=== PATIENT | female | born 1950 | race Asian ===

== ENCOUNTER → 2016-10-25 | Outpatient (CLI) | payer OTHER ==
[~2016-10-25] MED LIST: ACET-1600 PO; ALPR0.25 PO; ALPR1TAB2 PO; AMOX1TAB64 PO; AREDS PO; ASCO500T8 PO; BENA10TA2 PO; BISA10SU65 PR; CHOL100011 PO; CHOL500050 PO; CRANBERRY PO; FEXO180T15 PO; FEXO1TAB25 PO; FOLIC ACID PO; GARL10002 PO; GLUC500T11 PO; HYDR25TA6 PO; LACT1CAP37 PO; MAGN250T9 PO; MAGN300C PO; MULT-516 PO; OMEP-110 PO; OXYC-302 PO; POTA10TA11 PO; POTA20PA25 PO; VITAMIN B12 PO; VITAMIN B6 PO
== END | disposition home or self-care (01) ==
LOC: RAD 14:11
PROVIDERS: ATTEND Internal Medicine Hematology & Oncology
DX: I67.82 Cerebral ischemia (principal); R90.82 White matter disease, unspecified; C50.412 Malignant neoplasm of upper-outer quadrant of left female breast
CPT/HCPCS: 70553

== ENCOUNTER 2017-06-21 15:16 | Emergency (ER) | payer MEDICARE, OTHER ==
[~2017-06-21] VITALS: Ht 160 cm; Wt 88.5 kg
[2017-06-21] MEDS ORDERED: LOSA1TAB19 PO (15:48)
[2017-06-21] MEDS ORDERED: ASPIRIN 325 MG TABLET PO ONE (16:30)
[2017-06-21] MEDS ORDERED: KETOROLAC 30 MG/1 ML IVPush ONE (16:30)
[2017-06-21] MEDS ORDERED: ASPIRIN 325 MG TABLET ONE (16:30)
[2017-06-21] MEDS ORDERED: KETOROLAC 30 MG/1 ML ONE (16:30)
[2017-06-21] MEDS ORDERED: SODIUM CHLORIDE FLUSH 10ML SYR IVF ONE (16:30)
[2017-06-21] MEDS ORDERED: DIAZEPAM 5 MG/ML, 2ML IV ONE (16:30)
[2017-06-21 17:08] LABS: BASOPHILS # (AUTO) 0.02 x10^3/uL (0-0.1); BASOPHILS % (AUTO) 0 % (0-1); EOSINOPHILS % (AUTO) 1 % (1-7); LYMPHOCYTES # (AUTO) 2.65 x10^3/uL (1-3.4); LYMPHOCYTES % (AUTO) 36 % (22-44); MD NO; MEAN CORPUSCULAR HEMOGLOBIN 31.8 pg (27.0-34.8); MEAN CORPUSCULAR HGB CONC 33.4 g/dL (32.4-35.8); MEAN CORPUSCULAR VOLUME 95.1 fL (80-100); MEAN PLATELET VOLUME 8.2 fL (7.4-10.4); MONOCYTES # (AUTO) 0.65 x10^3/uL (0.2-0.8); MONOCYTES % (AUTO) 9 % (2-9); NEUTROPHILS # (AUTO) 4.05 x10^3/uL (1.8-6.8); NEUTROPHILS % (AUTO) 54 % (42-75); PLATELET COUNT 181 x10^3/uL (130-400); RED BLOOD COUNT 4.53 x10^6/uL (3.82-5.3); RED CELL DISTRIBUTION WIDTH 13.5 % (9.6-15.2)
[2017-06-21 17:12] LABS: ALANINE AMINOTRANSFERASE 40 U/L (12-78); ALBUMIN 3.4 g/dL (3.4-5.0); ANION GAP 3 mmol/L (5-15); CALCIUM 8.2 mg/dL (8.5-10.1); CHLORIDE 109 mmol/L (98-107); CREATININE 0.85 mg/dL (0.55-1.02)
[2017-06-21 17:16] LABS: ALKALINE PHOSPHATASE 66 U/L (45-117); BILIRUBIN,TOTAL 0.4 mg/dL (0.2-1.0); TOTAL PROTEIN 7.4 g/dL (6.4-8.2); TROPONIN I < 0.015 ng/mL (0.000-0.045)
[2017-06-21] MEDS ORDERED: GADOBUTROL 10 MMOL/10 ML PFS ONE (17:16)
[2017-06-21 18:08] VITALS: BP 140/78
== END 2017-06-21 20:02 | disposition home or self-care (01) ==
LOC: ED 19:33
DX: R07.2 Precordial pain (principal); M54.12 Radiculopathy, cervical region; I10 Essential (primary) hypertension
CPT/HCPCS: 36415; 71045; 72156; 80053; 83605; 84484; 85025; 93005; 96374; 96375; 99285; A9585; J1885; J3360

== ENCOUNTER 2017-08-27 05:57 | Inpatient (IN) | payer MEDICARE ==
[~2017-08-27] VITALS: Ht 160 cm; Wt 99.0 kg
[~2017-08-27 05:57] MED LIST changes: +DIAZ5TAB4 PO; +DICL50TA2 PO; +KETO10TA PO; +LOSA1TAB19 PO; +MONT10TA6 PO; +OXYC1TAB8 PO; +POTA10CA PO
[2017-08-27] MEDS ORDERED: LACTATED RINGERS 1,000 ML IV SCH (06:29)
[2017-08-27 06:31] VITALS: BP 168/84
[2017-08-27] MEDS ORDERED: FENTANYL PF 250 MCG/5ML ONE (06:37)
[2017-08-27] MEDS ORDERED: MIDAZOLAM 1 MG/ML, 2ML ONE (06:37)
[2017-08-27] MEDS ORDERED: EPHEDRINE 50 MG/ML, 1ML ONE (06:59)
[2017-08-27] MEDS ORDERED: LIDOCAINE-MPF 2% ,5ML ONE (06:59)
[2017-08-27] MEDS ORDERED: PHENYLEPHRINE 10 MG/ML ONE (06:59)
[2017-08-27] MEDS ORDERED: PROMETHAZINE 25 MG/ML, 1ML IV PRN (07:00)
[2017-08-27] MEDS ORDERED: ONDANSETRON ODT 8 MG PO PRN (07:00)
[2017-08-27] MEDS ORDERED: OxyconTIN ER 10 MG TAB.ER PO ONE (07:00)
[2017-08-27] MEDS ORDERED: ACETAMINOPHEN 500 MG TABLET PO ONE (07:00)
[2017-08-27] MEDS ORDERED: MORPHINE SULFATE 4 MG/ML, 1ML IVPush PRN (07:00)
[2017-08-27] MEDS ORDERED: GABAPENTIN 300 MG CAPSULE PO ONE (07:00)
[2017-08-27] MEDS ORDERED: FAMOTIDINE 20 MG TABLET PO ONE (07:00)
[2017-08-27] MEDS ORDERED: hydrALAzine 20 MG/ML, 1ML IV PRN (07:00)
[2017-08-27] MEDS ORDERED: LABETALOL 5MG/ML, 20ML IV PRN (07:00)
[2017-08-27] MEDS ORDERED: OXYcodone 5 MG/5 ML ORAL.SOL UDC PO PRN (07:00)
[2017-08-27] MEDS ORDERED: BUPIVACAINE/PF-EPI 0.5% 1:200K INFIL ONE (07:36)
[2017-08-27] MEDS ORDERED: BACITRACIN 50,000 UNIT IRRIG ONE (07:37)
[2017-08-27] MEDS ORDERED: THROMBIN 5,000 UNIT VIAL TP ONE (07:37)
[2017-08-27] MEDS ORDERED: GLYCOPYRROLATE 0.2MG/1ML, 5ML ONE (07:43)
[2017-08-27] MEDS ORDERED: DEXAMETHASONE 4 MG/ML, 1ML ONE (07:43)
[2017-08-27] MEDS ORDERED: CEFAZOLIN 1,000 MG ONE (07:43)
[2017-08-27] MEDS ORDERED: ROCURONIUM 10MG/ML,5ML ONE (07:43)
[2017-08-27] MEDS ORDERED: ONDANSETRON 2MG/ML, 2ML ONE (07:43)
[2017-08-27] MEDS ORDERED: NEOSTIGMINE 1 MG/ML, 10ML ONE (07:43)
[2017-08-27] MEDS ORDERED: PROPOFOL 10 MG/ML, 20ML ONE (07:43)
[2017-08-27] MEDS ORDERED: SUCCINYLCHOLINE 20 MG/ML, 10ML ONE (07:43)
[2017-08-27] MEDS ORDERED: LABETALOL 5MG/ML, 20ML IVPush PRN (09:30)
[2017-08-27] MEDS ORDERED: MAGNESIUM HYDROXIDE 8%, 30ML UDC PO PRN (09:30)
[2017-08-27] MEDS ORDERED: BISACODYL 10 MG SUPP PR PRN (09:30)
[2017-08-27] MEDS ORDERED: HYDROcodone/APAP 5/325 TABLET PO PRN (09:30)
[2017-08-27] MEDS ORDERED: PHARMACY MAY ADJ FOR RENAL FX MC PRN (09:30)
[2017-08-27] MEDS ORDERED: ONDANSETRON 2MG/ML, 2ML IVPush PRN (09:30)
[2017-08-27] MEDS ORDERED: PROMETHAZINE 25 MG/ML, 1ML IM PRN (09:30)
[2017-08-27] MEDS ORDERED: DIPHENHYDRAMINE 50 MG CAPSULE PO PRN (09:30)
[2017-08-27] MEDS ORDERED: CYCLOBENZAPRINE 10 MG TABLET PO PRN (09:30)
[2017-08-27] MEDS ORDERED: INSULIN REGULAR 100 UNITS/ML, 3ML VIAL SQ-INSULIN PRN (09:30)
[2017-08-27] MEDS ORDERED: SENNA/DOCUSATE TABLET PO PRN (09:30)
[2017-08-27] MEDS ORDERED: morphine SULFATE 10 MG/ML, 1ML IVPush PRN (09:30)
[2017-08-27] MEDS ORDERED: DIPHENHYDRAMINE 50 MG/ML, 1ML IVPush PRN (09:30)
[2017-08-27] MEDS ORDERED: PROMETHAZINE 25 MG/ML, 1ML ONE (09:31)
[2017-08-27] MEDS ORDERED: MORPHINE SULFATE 4 MG/ML, 1ML ONE (09:31)
[2017-08-27] MEDS ORDERED: OXYcodone 5 MG/5 ML ORAL.SOL UDC ONE (09:45)
[2017-08-27] MEDS ORDERED: FENTANYL PF 100 MCG/2ML ONE (09:46)
[2017-08-27] MEDS: FENTANYL PF 100 MCG/2ML IV PRN ×2 (09:50→10:00)
[2017-08-27] MEDS ORDERED: LABETALOL 5MG/ML, 20ML ONE (10:04)
[2017-08-27] MEDS ORDERED: D5%-0.9% NACL+KCL 20MEQ 1,000 ML IV SCH (12:00)
[2017-08-27 12:29] VITALS: BP 156/78
[2017-08-27] MEDS: DEXAMETHASONE 4 MG/ML, 1ML IVPush SCH ×2 (12:32→19:44)
[2017-08-27] MEDS: SODIUM CHLORIDE 0.9% 1,000 ML IV SCH (16:37)
[2017-08-27] MEDS: CEFAZOLIN PMX 1GM/50ML 50 ML IVPB SCH ×2 (16:37→23:15)
[2017-08-27 19:32] VITALS: BP 146/70
[2017-08-27] MEDS: SODIUM CHLORIDE FLUSH 10ML SYR IVF SCH (19:44)
[2017-08-27] MEDS: OXYcodone/APAP 5/325MG TABLET PO PRN ×2 (21:12→23:21)
[2017-08-28 00:50] VITALS: BP 159/78
[2017-08-28] MEDS: DEXAMETHASONE 4 MG/ML, 1ML IVPush SCH ×2 (01:47→08:48)
[2017-08-28] MEDS ORDERED: LACTATED RINGERS 500 ML IVBOLUS ONE (02:30)
[2017-08-28] MEDS: OXYcodone/APAP 5/325MG TABLET PO PRN ×2 (03:27→12:12)
[2017-08-28] MEDS: SODIUM CHLORIDE 0.9% 1,000 ML IV SCH (06:36)
[2017-08-28 08:00] VITALS: BP 145/73
[2017-08-28] MEDS: SODIUM CHLORIDE FLUSH 10ML SYR IVF SCH (08:49)
[2017-08-28] MEDS ORDERED: ENOXAPARIN 40 MG/0.4 ML SQ SCH (09:00)
[2017-08-28] MEDS ORDERED: TEMPLATE NON-FORMULARY MED. (Losartan/Hydrochlorothiazide** (Losartan-Hctz 50-12.5 Mg Tab PO SCH (09:00)
[2017-08-28] MEDS ORDERED: MONTELUKAST 10 MG TABLET PO SCH (09:00)
[2017-08-28] MEDS ORDERED: METH4TAB2 PO (09:43)
[2017-08-28] MEDS ORDERED: OXYC-302 PO (09:46)
[2017-08-28] MEDS ORDERED: FAMO-79 PO (09:46)
[2017-08-28] MEDS ORDERED: CYCL5TAB PO (09:46)
== END 2017-08-28 13:30 | disposition home or self-care (01) | DRG 472 ==
LOC: ORIP 05:57 → 4NOR 10:21
PROVIDERS: ADMIT Neurological Surgery; ATTEND Neurological Surgery
PROC: 0RB30ZZ Excision of Cervical Vertebral Disc, Open Approach (ICD-10-PCS; 2017-08-27)
PROC: 4A11X4G Monitoring of Peripheral Nervous Electrical Activity, Intraoperative, External Approach (ICD-10-PCS; 2017-08-27)
PROC: 0RG20A0 Fusion of 2 or more Cervical Vertebral Joints with Interbody Fusion Device, Anterior Approach, Anterior Column, Open Approach (ICD-10-PCS; principal; 2017-08-27 07:00)
DX: M48.02 Spinal stenosis, cervical region (principal); M50.021 Cervical disc disorder at C4-C5 level with myelopathy; M25.78 Osteophyte, vertebrae; M50.121 Cervical disc disorder at C4-C5 level with radiculopathy; Z68.36 Body mass index [BMI] 36.0-36.9, adult
CPT/HCPCS: 72040; 82962; C1713; J0690; J1100; J1650; J1815; J2250; J2405; J2550; J2704; J2710; J3010; J3490; C1776; J0330; J2370; J3480; J7030; J7120

== ENCOUNTER 2017-09-16 20:32 | Emergency (ER) | payer MEDICARE ==
[~2017-09-16] VITALS: Ht 160 cm; Wt 86.3 kg
[~2017-09-16 20:32] MED LIST changes: -BENA10TA2 PO; +BENA10TA4 PO; +CYCL5TAB PO; +FAMO-79 PO; +METH4TAB2 PO
[2017-09-16 21:03] LABS: BASOPHILS # (AUTO) 0.01 x10^3/uL (0-0.1); BASOPHILS % (AUTO) 0 % (0-1); EOSINOPHILS # (AUTO) 0.09 x10^3/uL (0-0.4); EOSINOPHILS % (AUTO) 1 % (1-7); LYMPHOCYTES % (AUTO) 29 % (22-44); MD NO; MEAN CORPUSCULAR HEMOGLOBIN 31.5 pg (27.0-34.8); MEAN CORPUSCULAR VOLUME 92.7 fL (80-100); MEAN PLATELET VOLUME 7.3 fL (7.4-10.4); MONOCYTES # (AUTO) 0.69 x10^3/uL (0.2-0.8); MONOCYTES % (AUTO) 9 % (2-9); NEUTROPHILS # (AUTO) 4.97 x10^3/uL (1.8-6.8); NEUTROPHILS % (AUTO) 62 % (42-75); PLATELET COUNT 204 x10^3/uL (130-400); RED BLOOD COUNT 4.32 x10^6/uL (3.82-5.3); RED CELL DISTRIBUTION WIDTH 13.2 % (9.6-15.2)
[2017-09-16 21:15] LABS: ALBUMIN 3.3 g/dL (3.4-5.0); ANION GAP 8 mmol/L (5-15); CALCIUM 8.4 mg/dL (8.5-10.1); CHLORIDE 100 mmol/L (98-107); CREATININE 0.72 mg/dL (0.55-1.02)
[2017-09-16 21:18] LABS: TROPONIN I < 0.015 ng/mL (0.000-0.045)
[2017-09-16] MEDS ORDERED: ALBUTEROL/IPRATROPIUM 2.5MG/0.5MG, 3 ML NPPB ONE (22:00)
[2017-09-16] MEDS ORDERED: ALBUTEROL/IPRATROPIUM 2.5MG/0.5MG, 3 ML ONE (22:10)
[2017-09-16 22:23] VITALS: BP 138/86
[2017-09-16] MEDS ORDERED: DEXAMETHASONE 4 MG/ML, 5ML ONE (23:24)
[2017-09-16] MEDS ORDERED: DEXAMETHASONE 4 MG/ML, 1ML IM ONE (23:30)
== END 2017-09-16 23:34 | disposition home or self-care (01) ==
LOC: ED 23:05
DX: J98.01 Acute bronchospasm (principal); I10 Essential (primary) hypertension; Z87.891 Personal history of nicotine dependence; Z85.3 Personal history of malignant neoplasm of breast
CPT/HCPCS: 36415; 70360; 71045; 80048; 82040; 83880; 84484; 85025; 93005; 94640; 96372; 99285; J1100; J7620

== ENCOUNTER → 2017-12-23 | Outpatient (CLI) | payer MEDICARE | END | disposition home or self-care (01) | LOC: CFH 10:08 | PROVIDERS: ATTEND Otolaryngology | DX: K21.9 Gastro-esophageal reflux disease without esophagitis (principal); R13.14 Dysphagia, pharyngoesophageal phase | CPT/HCPCS: 74220 ==

== ENCOUNTER → 2017-12-24 | Outpatient (CLI) | payer MEDICARE | END | disposition home or self-care (01) | LOC: CFH 15:50 → MERGE 16:00 | PROVIDERS: ATTEND Neurological Surgery | DX: M43.22 Fusion of spine, cervical region (principal); M48.02 Spinal stenosis, cervical region; M47.12 Other spondylosis with myelopathy, cervical region | CPT/HCPCS: 72141 ==

== ENCOUNTER 2018-02-19 10:39 | Outpatient (CLI) | payer MEDICARE ==
[2018-02-20] MEDS ORDERED: AMLO-150 PO (10:16)
[2018-02-20] MEDS ORDERED: LOSA1TAB22 PO (10:16)
== END 2018-02-19 23:59 | disposition home or self-care (01) ==
LOC: PETCFH 10:39
PROVIDERS: ATTEND Internal Medicine Hematology & Oncology
DX: C50.412 Malignant neoplasm of upper-outer quadrant of left female breast (principal)
CPT/HCPCS: 78306; A9503

== ENCOUNTER → 2018-02-20 | Outpatient (CLI) | payer MEDICARE ==
[~2018-02-20] MED LIST changes: +AMLO-150 PO; +LOSA1TAB22 PO
[2018-02-20 11:03] LABS: MICROSCOPIC NOT IND
[2018-02-20 11:03] LABS: BASOPHILS # (AUTO) 0.01 x10^3/uL (0-0.1); BASOPHILS % (AUTO) 0 % (0-1); EOSINOPHILS # (AUTO) 0.13 x10^3/uL (0-0.4); EOSINOPHILS % (AUTO) 2 % (1-7); LYMPHOCYTES # (AUTO) 2.27 x10^3/uL (1-3.4); LYMPHOCYTES % (AUTO) 34 % (22-44); MD NO; MEAN CORPUSCULAR HEMOGLOBIN 32.5 pg (27.0-34.8); MEAN CORPUSCULAR HGB CONC 34.3 g/dL (32.4-35.8); MEAN CORPUSCULAR VOLUME 94.7 fL (80-100); MEAN PLATELET VOLUME 8.1 fL (7.4-10.4); MONOCYTES # (AUTO) 0.67 x10^3/uL (0.2-0.8); MONOCYTES % (AUTO) 10 % (2-9); NEUTROPHILS # (AUTO) 3.55 x10^3/uL (1.8-6.8); NEUTROPHILS % (AUTO) 54 % (42-75); PLATELET COUNT 209 x10^3/uL (130-400); RED BLOOD COUNT 4.29 x10^6/uL (3.82-5.3); RED CELL DISTRIBUTION WIDTH 13.6 % (9.6-15.2)
[2018-02-20 11:04] LABS: CULTURE INDICATED? NO
[2018-02-20 11:11] LABS: ALANINE AMINOTRANSFERASE 37 U/L (12-78); ALBUMIN 3.6 g/dL (3.4-5.0); ANION GAP 7 mmol/L (5-15); CALCIUM 8.7 mg/dL (8.5-10.1); CHLORIDE 104 mmol/L (98-107); CREATININE 0.73 mg/dL (0.55-1.02); INTERNATIONAL NORMALIZED RATIO 0.97 (0.93-1.1); PROTHROMBIN TIME 10.3 Seconds (9.6-11.5)
[2018-02-20 11:13] LABS: ALKALINE PHOSPHATASE 85 U/L (45-117); BILIRUBIN,TOTAL 0.5 mg/dL (0.2-1.0); TOTAL PROTEIN 7.6 g/dL (6.4-8.2)
== END | disposition home or self-care (01) ==
LOC: STAR 09:42
PROVIDERS: ATTEND Neurological Surgery
DX: Z01.818 Encounter for other preprocedural examination (principal); M47.12 Other spondylosis with myelopathy, cervical region
CPT/HCPCS: 36415; 80053; 81003; 85025; 85610; 85730; 93005

== ENCOUNTER → 2018-04-10 | Outpatient (CLI) | payer MEDICARE | END | disposition home or self-care (01) | LOC: CFH 13:08 | PROVIDERS: ATTEND Registered Nurse | DX: M43.22 Fusion of spine, cervical region (principal); M54.12 Radiculopathy, cervical region | CPT/HCPCS: 72040 ==

== ENCOUNTER 2018-07-29 09:27 | Inpatient (IN) | payer MEDICARE ==
[~2018-07-29] VITALS: Ht 160 cm; Wt 69.9 kg
[~2018-07-29 09:27] MED LIST changes: -BENA10TA4 PO; +BENA10TA6 PO
--- NOTE | 2018-07-29 09:57 | NUR ---
Nitin resendez in [facility] - 07/29/18 at 0959 by MATHEW MEDICATED PER ORDERS
--- NOTE | 2018-07-29 10:00 | NUR ---
THIS IS A 68 YEAR OLD FEMALE WHO CAME IN BY AMBULANCE DUE TO TACHY AND C/O OF SOME VERTIGO. PT PLACED ON CASE BRIEFER SINUS, SPO02 AT 96%, AND CYCLE VS. FAMILY AT BS
--- NOTE | 2018-07-29 10:12 | NUR ---
WALKED PT TO BATHROOM GAIT SLOW AND STEADY, NO SOB, PT DENIES VERTIGO, DIZZINESS, OR NAUSEA.
[2018-07-29 10:28] LABS: MEAN CORPUSCULAR HEMOGLOBIN 31.3 pg (27.0-34.8); MEAN CORPUSCULAR HGB CONC 33.6 g/dL (32.4-35.8); MEAN CORPUSCULAR VOLUME 93.1 fL (80-100); MEAN PLATELET VOLUME 7.3 fL (7.4-10.4); PLATELET COUNT 116 x10^3/uL (130-400); RED BLOOD COUNT 3.46 x10^6/uL (3.82-5.3); RED CELL DISTRIBUTION WIDTH 21.2 % (9.6-15.2)
[2018-07-29 10:29] LABS: MD YES
[2018-07-29 10:36] LABS: MICROSCOPIC NOT IND
[2018-07-29 10:37] LABS: INTERNATIONAL NORMALIZED RATIO 1.03 (0.93-1.1); PROTHROMBIN TIME 10.8 Seconds (9.6-11.5)
[2018-07-29 10:38] LABS: CULTURE INDICATED? NO
[2018-07-29 10:40] LABS: ALBUMIN 3.2 g/dL (3.4-5.0); ANION GAP 15 mmol/L (5-15); CALCIUM 9.8 mg/dL (8.5-10.1); CHLORIDE 96 mmol/L (98-107)
[2018-07-29 10:45] LABS: ALANINE AMINOTRANSFERASE 28 U/L (12-78); ALKALINE PHOSPHATASE 79 U/L (45-117); BAND#(MANUAL) 0.44 x10^3/uL; BANDS%(MANUAL) 6 % (0-7); BILIRUBIN,TOTAL 0.6 mg/dL (0.2-1.0); CREATININE 1.11 mg/dL (0.55-1.02); LYMPH#(MANUAL) 3.33 x10^3/uL (1-3.4); LYMPHS% (MANUAL) 45 % (22-44); METAMYELOCYTES# (MANUAL) 0.15 x10^3/uL (0-0); METAMYELOCYTES% (MANUAL) 2 % (0-1); MONOS#(MANUAL) 0.15 x10^3/uL (0.3-2.7); MONOS% (MANUAL) 2 % (2-9); MYELOCYTES# (MANUAL) 0.22 x10^3/uL (0-0); MYELOCYTES% (MANUAL) 3 % (0-0); SEGS% (MANUAL) 23 % (42-75); TOTAL PROTEIN 7.2 g/dL (6.4-8.2); TROPONIN I < 0.015 ng/mL (0.000-0.045)
[2018-07-29 10:46] LABS: NRBC % (MANUAL) 1 % (0-1); OTHER CELLS # (MANUAL) 1.41 x10^3/uL (0-0); OTHER CELLS % (MANUAL) 19 % (0-0)
[2018-07-29 10:47] LABS: <PLATELET ESTIMATE> DECREASED; ANISOCYTOSIS 1+; POLYCHROMASIA 1+
[2018-07-29 10:52] LABS: HYPOGRAN PLTS 1+; SMUDGE CELLS 1+
[2018-07-29] MEDS ORDERED: SODIUM CHLORIDE 0.9% 1,000ML IVBOLUS ONE (12:00)
[2018-07-29] MEDS ORDERED: OMNIPAQUE 350 MG/ML, 100ML BOTTLE ONE (12:12)
--- NOTE | 2018-07-29 12:43 | NUR ---
PT UP TO BATHROOM GAIT SLOW AND STEADY
[2018-07-29] MEDS ORDERED: DICL-249 PO (13:12)
[2018-07-29] MEDS ORDERED: MECL25TA4 PO (13:12)
[2018-07-29] MEDS ORDERED: CYCL-259 PO (13:12)
[2018-07-29] MEDS ORDERED: BENZ150C3 PO (13:12)
--- NOTE | 2018-07-29 13:35 | NUR ---
REPORT GIVEN TO SLICK VINES
[2018-07-29 14:27] VITALS: BP 155/76
[2018-07-29] MEDS ORDERED: NITROGLYCERIN 0.4 MG/SPRAY SL PRN (14:30)
[2018-07-29] MEDS ORDERED: NITROGLYCERIN 0.4 MG BOTTLE (25 TABS) SL PRN (14:30)
[2018-07-29] MEDS ORDERED: LIDODERM 5% PATCH TD PRN (14:30)
[2018-07-29] MEDS ORDERED: hydrALAzine 20 MG/ML, 1ML IVPush PRN (14:30)
[2018-07-29] MEDS ORDERED: morphine SULFATE 10 MG/ML, 1ML IVPush PRN (14:30)
[2018-07-29 15:16] LABS: RED BLOOD COUNT 3.49 x10^6/uL (3.82-5.3)
[2018-07-29] MEDS: SODIUM CHLORIDE 0.9% 1,000 ML IV SCH (15:27)
[2018-07-29] MEDS ORDERED: MECLIZINE 25 MG TABLET PO PRN (15:30)
[2018-07-29] MEDS ORDERED: CYCLOBENZAPRINE 10 MG TABLET PO PRN (15:30)
[2018-07-29 15:31] LABS: ABSOLUTE RETICS # 0.098 x10^6/uL (0.5-2.5); RETICULOCYTE COUNT % 2.8 % (0.5-1.5)
[2018-07-29 19:40] LABS: TROPONIN I < 0.015 ng/mL (0.000-0.045)
[2018-07-29 21:31] VITALS: BP 139/79
[2018-07-30] VITALS (7 sets, daily range): BP systolic 114–139; BP diastolic 69–83
[2018-07-30] MEDS: SODIUM CHLORIDE 0.9% 1,000 ML IV SCH ×2 (02:17→15:41)
[2018-07-30 02:31] LABS: TROPONIN I < 0.015 ng/mL (0.000-0.045)
[2018-07-30] MEDS: ASPIRIN 325 MG TABLET EC PO SCH (05:26)
[2018-07-30 05:29] LABS: ALBUMIN 2.7 g/dL (3.4-5.0); ANION GAP 12 mmol/L (5-15); CALCIUM 8.7 mg/dL (8.5-10.1); CHLORIDE 103 mmol/L (98-107)
[2018-07-30 05:40] LABS: ALANINE AMINOTRANSFERASE 20 U/L (12-78); ALKALINE PHOSPHATASE 60 U/L (45-117); BILIRUBIN,TOTAL 0.8 mg/dL (0.2-1.0); CREATININE 0.82 mg/dL (0.55-1.02); TOTAL PROTEIN 6.1 g/dL (6.4-8.2)
[2018-07-30 05:57] LABS: MD YES; MEAN CORPUSCULAR HEMOGLOBIN 30.7 pg (27.0-34.8); MEAN CORPUSCULAR HGB CONC 33.2 g/dL (32.4-35.8); MEAN CORPUSCULAR VOLUME 92.4 fL (80-100); RED BLOOD COUNT 2.81 x10^6/uL (3.82-5.3)
[2018-07-30 05:58] LABS: MEAN PLATELET VOLUME 6.9 fL (7.4-10.4); PLATELET COUNT 91 x10^3/uL (130-400)
[2018-07-30 06:07] LABS: <PLATELET ESTIMATE> DECREASED; ANISOCYTOSIS 1+; BAND#(MANUAL) 0.19 x10^3/uL; BANDS%(MANUAL) 4 % (0-7); BLASTS # (MANUAL) 0.99 x10^3/uL (0-0); EOS#(MANUAL) 0.09 x10^3/uL (0.0-0.4); EOS% (MANUAL) 2 % (1-7); LYMPH#(MANUAL) 1.83 x10^3/uL (1-3.4); LYMPHS% (MANUAL) 39 % (22-44); METAMYELOCYTES# (MANUAL) 0.09 x10^3/uL (0-0); METAMYELOCYTES% (MANUAL) 2 % (0-1); MONOS#(MANUAL) 0.09 x10^3/uL (0.3-2.7); MONOS% (MANUAL) 2 % (2-9); MYELOCYTES# (MANUAL) 0.05 x10^3/uL (0-0); MYELOCYTES% (MANUAL) 1 % (0-0); POLYCHROMASIA 1+; SEG#(MANUAL) 1.36 x10^3/uL (1.8-6.8); SEGS% (MANUAL) 29 % (42-75)
[2018-07-30 06:08] LABS: HYPOGRAN PLTS 1+
[2018-07-30 06:13] LABS: BLASTS % (MANUAL) 21 % (0-0)
[2018-07-30] MEDS ORDERED: REGADENOSON 0.4 MG/5 ML SYRINGE ONE (09:19)
[2018-07-30] MEDS ORDERED: POTASSIUM CHLORIDE 20 MEQ TAB.ER.PRT PO ONE (10:00)
[2018-07-30] MEDS ORDERED: FENTANYL PF 100 MCG/2ML ONE (11:06)
[2018-07-30] MEDS ORDERED: MIDAZOLAM 1 MG/ML, 5ML ONE (11:06)
[2018-07-30] MEDS ORDERED: FLUMAZENIL 0.1 MG/1 ML, 5ML ONE (11:06)
[2018-07-30] MEDS ORDERED: NALOXONE 1 MG/ML, 2ML ONE (11:07)
[2018-07-30] MEDS: AMLODIPINE 5 MG TABLET PO SCH (12:19)
[2018-07-30 13:21] LABS: MD YES; MEAN CORPUSCULAR HEMOGLOBIN 32.1 pg (27.0-34.8); MEAN CORPUSCULAR HGB CONC 34.7 g/dL (32.4-35.8); MEAN CORPUSCULAR VOLUME 92.5 fL (80-100); RED BLOOD COUNT 2.98 x10^6/uL (3.82-5.3); RED CELL DISTRIBUTION WIDTH 21.8 % (9.6-15.2)
[2018-07-30 13:31] LABS: BAND#(MANUAL) 0.24 x10^3/uL; BANDS%(MANUAL) 6 % (0-7); SEGS% (MANUAL) 40 % (42-75)
[2018-07-30 13:32] LABS: BASOS#(MANUAL) 0.04 x10^3/uL (0-0.1); BASOS% (MANUAL) 1 % (0-1); BLASTS # (MANUAL) 0.32 x10^3/uL (0-0); EOS#(MANUAL) 0.08 x10^3/uL (0.0-0.4); EOS% (MANUAL) 2 % (1-7); LYMPH#(MANUAL) 1.56 x10^3/uL (1-3.4); LYMPHS% (MANUAL) 39 % (22-44); METAMYELOCYTES# (MANUAL) 0.04 x10^3/uL (0-0); METAMYELOCYTES% (MANUAL) 1 % (0-1); MONOS#(MANUAL) 0.08 x10^3/uL (0.3-2.7); MONOS% (MANUAL) 2 % (2-9); MYELOCYTES# (MANUAL) 0.04 x10^3/uL (0-0); MYELOCYTES% (MANUAL) 1 % (0-0); NRBC % (MANUAL) 5 % (0-1)
[2018-07-30 13:35] LABS: <PLATELET ESTIMATE> DECREASED
[2018-07-30 13:36] LABS: ANISOCYTOSIS 1+
[2018-07-30 13:38] LABS: BLASTS % (MANUAL) 8 % (0-0)
[2018-07-30 13:39] LABS: MEAN PLATELET VOLUME 7.2 fL (7.4-10.4); PLATELET COUNT 91 x10^3/uL (130-400)
[2018-07-30 13:40] LABS: <PLT MORPHOLOGY> NORMAL PLT MORPH
[2018-07-30] MEDS: ACETAMINOPHEN 325 MG TABLET PO PRN (18:46)
[2018-07-31 00:06] VITALS: BP 112/58
[2018-07-31] MEDS: SODIUM CHLORIDE 0.9% 1,000 ML IV SCH ×2 (02:05→16:04)
[2018-07-31 05:00] LABS: ALANINE AMINOTRANSFERASE 17 U/L (12-78); ALBUMIN 2.6 g/dL (3.4-5.0); ANION GAP 12 mmol/L (5-15); CALCIUM 8.2 mg/dL (8.5-10.1); CHLORIDE 106 mmol/L (98-107); CREATININE 0.81 mg/dL (0.55-1.02)
[2018-07-31 05:02] LABS: ALKALINE PHOSPHATASE 58 U/L (45-117); BILIRUBIN,TOTAL 0.6 mg/dL (0.2-1.0); TOTAL PROTEIN 5.9 g/dL (6.4-8.2)
[2018-07-31 05:47] LABS: MEAN CORPUSCULAR HEMOGLOBIN 30.4 pg (27.0-34.8); MEAN CORPUSCULAR VOLUME 92.4 fL (80-100); MEAN PLATELET VOLUME 6.6 fL (7.4-10.4); PLATELET COUNT 81 x10^3/uL (130-400); RED BLOOD COUNT 2.72 x10^6/uL (3.82-5.3); RED CELL DISTRIBUTION WIDTH 22.2 % (9.6-15.2)
[2018-07-31 05:48] LABS: MD YES
[2018-07-31 05:52] LABS: <PLATELET ESTIMATE> DECREASED; ANISOCYTOSIS 1+; BAND#(MANUAL) 0.08 x10^3/uL; BANDS%(MANUAL) 3 % (0-7); BLASTS # (MANUAL) 0.28 x10^3/uL (0-0); EOS#(MANUAL) 0.11 x10^3/uL (0.0-0.4); EOS% (MANUAL) 4 % (1-7); LYMPHS% (MANUAL) 43 % (22-44); METAMYELOCYTES# (MANUAL) 0.03 x10^3/uL (0-0); METAMYELOCYTES% (MANUAL) 1 % (0-1); MONOS#(MANUAL) 0.06 x10^3/uL (0.3-2.7); MONOS% (MANUAL) 2 % (2-9); MYELOCYTES# (MANUAL) 0.03 x10^3/uL (0-0); MYELOCYTES% (MANUAL) 1 % (0-0); NRBC % (MANUAL) 4 % (0-1); SEG#(MANUAL) 1.01 x10^3/uL (1.8-6.8); SEGS% (MANUAL) 36 % (42-75)
[2018-07-31 05:53] LABS: HYPOGRAN PLTS 1+
[2018-07-31 05:54] LABS: SMUDGE CELLS 1+
[2018-07-31 05:55] LABS: BLASTS % (MANUAL) 10 % (0-0)
[2018-07-31] MEDS: ASPIRIN 325 MG TABLET EC PO SCH (06:05)
[2018-07-31 07:14] VITALS: BP 113/69
[2018-07-31 09:05] LABS: MEAN CORPUSCULAR HEMOGLOBIN 30.6 pg (27.0-34.8); MEAN CORPUSCULAR HGB CONC 33.1 g/dL (32.4-35.8); MEAN CORPUSCULAR VOLUME 92.4 fL (80-100); MEAN PLATELET VOLUME 6.9 fL (7.4-10.4); PLATELET COUNT 76 x10^3/uL (130-400); RED BLOOD COUNT 2.72 x10^6/uL (3.82-5.3); RED CELL DISTRIBUTION WIDTH 22.6 % (9.6-15.2)
[2018-07-31 09:23] LABS: MD YES
[2018-07-31 09:29] LABS: <PLATELET ESTIMATE> DECREASED; ANISOCYTOSIS 1+; BAND#(MANUAL) 0.18 x10^3/uL; BANDS%(MANUAL) 6 % (0-7); BLASTS # (MANUAL) 0.36 x10^3/uL (0-0); EOS#(MANUAL) 0.06 x10^3/uL (0.0-0.4); EOS% (MANUAL) 2 % (1-7); LYMPH#(MANUAL) 1.47 x10^3/uL (1-3.4); LYMPHS% (MANUAL) 49 % (22-44); METAMYELOCYTES# (MANUAL) 0.03 x10^3/uL (0-0); METAMYELOCYTES% (MANUAL) 1 % (0-1); MONOS#(MANUAL) 0.03 x10^3/uL (0.3-2.7); MONOS% (MANUAL) 1 % (2-9); MYELOCYTES# (MANUAL) 0.06 x10^3/uL (0-0); MYELOCYTES% (MANUAL) 2 % (0-0); SEG#(MANUAL) 0.81 x10^3/uL (1.8-6.8); SEGS% (MANUAL) 27 % (42-75)
[2018-07-31 09:30] LABS: POLYCHROMASIA 1+
[2018-07-31 09:31] LABS: BLASTS % (MANUAL) 12 % (0-0)
[2018-07-31 09:32] LABS: HYPOGRAN PLTS 1+
[2018-07-31] MEDS ORDERED: MAGNESIUM SULFATE 3 GM in SODIUM CHLORIDE 0.9% 100 ML IV ONE (10:00)
[2018-07-31] MEDS ORDERED: POTASSIUM CHLORIDE 20 MEQ TAB.ER.PRT PO ONE ×2 (10:00→13:00)
[2018-07-31] MEDS: AMLODIPINE 5 MG TABLET PO SCH (10:15)
[2018-07-31 13:45] VITALS: BP 107/65
--- NOTE | 2018-07-31 16:16 | NUR ---
REC THIN/REGULAR; swallow precaution sheet posted at bedside Addendum: 07/31/18 at 1632 by Frances AMANDA Amended: Links added.
[2018-07-31 19:12] VITALS: BP 112/65
[2018-07-31] MEDS: ACETAMINOPHEN 325 MG TABLET PO PRN (20:53)
[2018-07-31] MEDS: ALLOPURINOL 300 MG TABLET PO SCH (20:53)
[2018-08-01 01:05] VITALS: BP 104/62
[2018-08-01] MEDS: SODIUM CHLORIDE 0.9% 1,000 ML IV SCH ×2 (02:36→21:31)
[2018-08-01] MEDS: ASPIRIN 325 MG TABLET EC PO SCH (05:39)
[2018-08-01] MEDS: PANTOPROZOLE 40MG TABLET PO SCH (05:39)
[2018-08-01 07:41] VITALS: BP 125/68
[2018-08-01 09:13] LABS: ALANINE AMINOTRANSFERASE 22 U/L (12-78); ALBUMIN 2.5 g/dL (3.4-5.0); ANION GAP 10 mmol/L (5-15); CALCIUM 7.9 mg/dL (8.5-10.1); CHLORIDE 107 mmol/L (98-107); CREATININE 0.71 mg/dL (0.55-1.02)
[2018-08-01 09:16] LABS: ALKALINE PHOSPHATASE 65 U/L (45-117); BILIRUBIN,TOTAL 0.8 mg/dL (0.2-1.0); TOTAL PROTEIN 5.9 g/dL (6.4-8.2)
[2018-08-01] MEDS: AMLODIPINE 5 MG TABLET PO SCH (09:38)
[2018-08-01] MEDS: ALLOPURINOL 300 MG TABLET PO SCH ×2 (09:38→21:28)
[2018-08-01 10:26] LABS: MEAN CORPUSCULAR HEMOGLOBIN 31.6 pg (27.0-34.8); MEAN CORPUSCULAR HGB CONC 33.7 g/dL (32.4-35.8); MEAN CORPUSCULAR VOLUME 93.6 fL (80-100); MEAN PLATELET VOLUME 6.8 fL (7.4-10.4); PLATELET COUNT 72 x10^3/uL (130-400); RED BLOOD COUNT 2.51 x10^6/uL (3.82-5.3)
[2018-08-01 10:27] LABS: MD YES
[2018-08-01 10:30] LABS: BANDS%(MANUAL) 3 % (0-7); BLASTS # (MANUAL) 0.34 x10^3/uL (0-0); EOS#(MANUAL) 0.03 x10^3/uL (0.0-0.4); EOS% (MANUAL) 1 % (1-7); LYMPHS% (MANUAL) 44 % (22-44); METAMYELOCYTES# (MANUAL) 0.07 x10^3/uL (0-0); METAMYELOCYTES% (MANUAL) 2 % (0-1); NRBC % (MANUAL) 5 % (0-1); SEG#(MANUAL) 1.36 x10^3/uL (1.8-6.8); SEGS% (MANUAL) 40 % (42-75)
[2018-08-01 10:31] LABS: ANISOCYTOSIS 1+; BLASTS % (MANUAL) 10 % (0-0); POLYCHROMASIA 1+
[2018-08-01 10:32] LABS: <PLATELET ESTIMATE> DECREASED; HYPOGRAN PLTS 1+; SMUDGE CELLS 1+
[2018-08-01] MEDS ORDERED: MAGNESIUM SULFATE PMX 2GM/50ML 50 ML IV ONE (11:30)
[2018-08-01 12:34] VITALS: BP 108/69
[2018-08-01 19:47] VITALS: BP 128/75
[2018-08-01] MEDS: ACETAMINOPHEN 325 MG TABLET PO PRN (21:28)
[2018-08-01] MEDS: ALPRazolam 1MG TAB PO PRN (22:36)
[2018-08-02 01:53] VITALS: BP 129/65
[2018-08-02 05:42] LABS: CHLORIDE 108 mmol/L (98-107)
[2018-08-02 05:50] LABS: ALANINE AMINOTRANSFERASE 24 U/L (12-78); ALBUMIN 2.4 g/dL (3.4-5.0); ALKALINE PHOSPHATASE 97 U/L (45-117); ANION GAP 10 mmol/L (5-15); BILIRUBIN,TOTAL 0.6 mg/dL (0.2-1.0); CALCIUM 7.9 mg/dL (8.5-10.1); CREATININE 0.63 mg/dL (0.55-1.02); TOTAL PROTEIN 5.7 g/dL (6.4-8.2)
[2018-08-02 05:57] LABS: MEAN CORPUSCULAR HEMOGLOBIN 31.1 pg (27.0-34.8); MEAN CORPUSCULAR HGB CONC 33.7 g/dL (32.4-35.8); MEAN CORPUSCULAR VOLUME 92.4 fL (80-100); PLATELET COUNT 72 x10^3/uL (130-400); RED BLOOD COUNT 2.52 x10^6/uL (3.82-5.3); RED CELL DISTRIBUTION WIDTH 22.8 % (9.6-15.2)
[2018-08-02 05:58] LABS: MD YES
[2018-08-02 06:01] LABS: BANDS%(MANUAL) 6 % (0-7); BLASTS # (MANUAL) 0.37 x10^3/uL (0-0); METAMYELOCYTES# (MANUAL) 0.07 x10^3/uL (0-0); METAMYELOCYTES% (MANUAL) 2 % (0-1); MONOS#(MANUAL) 0.03 x10^3/uL (0.3-2.7); MONOS% (MANUAL) 1 % (2-9); NRBC % (MANUAL) 1 % (0-1)
[2018-08-02 06:02] LABS: EOS% (MANUAL) 3 % (1-7); LYMPH#(MANUAL) 1.56 x10^3/uL (1-3.4); LYMPHS% (MANUAL) 46 % (22-44); SEG#(MANUAL) 1.05 x10^3/uL (1.8-6.8); SEGS% (MANUAL) 31 % (42-75)
[2018-08-02 06:03] LABS: BLASTS % (MANUAL) 11 % (0-0)
[2018-08-02 06:04] LABS: ANISOCYTOSIS 1+; POLYCHROMASIA 1+
[2018-08-02 06:05] LABS: <PLATELET ESTIMATE> DECREASED; <PLT MORPHOLOGY> NORMAL PLT MORPH; SMUDGE CELLS 1+
[2018-08-02] MEDS: PANTOPROZOLE 40MG TABLET PO SCH (06:05)
[2018-08-02] MEDS: ASPIRIN 325 MG TABLET EC PO SCH (06:05)
[2018-08-02] MEDS: AMLODIPINE 5 MG TABLET PO SCH (07:34)
[2018-08-02] MEDS: ALLOPURINOL 300 MG TABLET PO SCH ×2 (07:34→21:13)
[2018-08-02] MEDS: SODIUM CHLORIDE 0.9% 1,000 ML IV SCH ×2 (07:35→17:58)
[2018-08-02 08:33] VITALS: BP 124/77
[2018-08-02 15:47] VITALS: BP 123/75
[2018-08-02 20:07] VITALS: BP 126/74
[2018-08-02] MEDS: ACETAMINOPHEN 325 MG TABLET PO PRN (21:13)
[2018-08-02] MEDS: ALPRazolam 1MG TAB PO PRN (21:13)
[2018-08-03 00:45] VITALS: BP 106/65
[2018-08-03] MEDS: SODIUM CHLORIDE 0.9% 1,000 ML IV SCH ×2 (04:00→17:10)
[2018-08-03 06:17] LABS: CHLORIDE 109 mmol/L (98-107)
[2018-08-03 06:26] LABS: ALANINE AMINOTRANSFERASE 26 U/L (12-78); ALBUMIN 2.5 g/dL (3.4-5.0); ALKALINE PHOSPHATASE 105 U/L (45-117); ANION GAP 13 mmol/L (5-15); BILIRUBIN,TOTAL 0.4 mg/dL (0.2-1.0); CREATININE 0.66 mg/dL (0.55-1.02); TOTAL PROTEIN 6.1 g/dL (6.4-8.2)
[2018-08-03 06:31] LABS: MD YES
[2018-08-03 06:32] LABS: MEAN CORPUSCULAR HEMOGLOBIN 32.5 pg (27.0-34.8); MEAN CORPUSCULAR HGB CONC 34.1 g/dL (32.4-35.8); MEAN CORPUSCULAR VOLUME 95.2 fL (80-100); MEAN PLATELET VOLUME 6.9 fL (7.4-10.4); PLATELET COUNT 79 x10^3/uL (130-400); RED BLOOD COUNT 2.53 x10^6/uL (3.82-5.3); RED CELL DISTRIBUTION WIDTH 22.6 % (9.6-15.2)
[2018-08-03 06:41] LABS: BANDS%(MANUAL) 2 % (0-7); EOS% (MANUAL) 4 % (1-7); LYMPHS% (MANUAL) 45 % (22-44); MYELOCYTES% (MANUAL) 2 % (0-0); NRBC % (MANUAL) 2 % (0-1); SEGS% (MANUAL) 23 % (42-75)
[2018-08-03 06:42] LABS: <PLATELET ESTIMATE> DECREASED; ANISOCYTOSIS 1+; POLYCHROMASIA 1+; SMUDGE CELLS 1+
[2018-08-03] MEDS: PANTOPROZOLE 40MG TABLET PO SCH (06:42)
[2018-08-03] MEDS: ASPIRIN 325 MG TABLET EC PO SCH (06:42)
[2018-08-03 06:44] LABS: BAND#(MANUAL) 0.08 x10^3/uL; BLASTS # (MANUAL) 0.94 x10^3/uL (0-0); BLASTS % (MANUAL) 24 % (0-0); EOS#(MANUAL) 0.16 x10^3/uL (0.0-0.4); LYMPH#(MANUAL) 1.76 x10^3/uL (1-3.4); MYELOCYTES# (MANUAL) 0.08 x10^3/uL (0-0)
[2018-08-03 06:46] LABS: HYPOGRAN PLTS 1+
[2018-08-03] MEDS ORDERED: POTASSIUM CHLORIDE 20 MEQ TAB.ER.PRT PO ONE ×2 (07:00→23:30)
[2018-08-03 07:02] VITALS: BP 142/78
[2018-08-03] MEDS: AMLODIPINE 5 MG TABLET PO SCH (10:51)
[2018-08-03] MEDS: ALLOPURINOL 300 MG TABLET PO SCH ×2 (10:51→21:46)
[2018-08-03 13:23] VITALS: BP 146/77
[2018-08-03 20:27] VITALS: BP 119/67
[2018-08-03] MEDS: ACETAMINOPHEN 325 MG TABLET PO PRN (21:47)
[2018-08-03] MEDS: CEFEPIME 2 GM in DEXTROSE 5% 100 ML IV SCH (21:52)
[2018-08-03 22:06] LABS: MICROSCOPIC NOT IND
[2018-08-03 22:08] LABS: CULTURE INDICATED? NO
[2018-08-03] MEDS: ALPRazolam 1MG TAB PO PRN (23:26)
[2018-08-04 01:25] VITALS: BP 114/73
[2018-08-04] MEDS: SODIUM CHLORIDE 0.9% 1,000 ML IV SCH ×2 (01:51→12:59)
[2018-08-04] MEDS: ASPIRIN 325 MG TABLET EC PO SCH (05:45)
[2018-08-04] MEDS: CEFEPIME 2 GM in DEXTROSE 5% 100 ML IV SCH ×3 (05:45→20:26)
[2018-08-04] MEDS: PANTOPROZOLE 40MG TABLET PO SCH (05:45)
[2018-08-04 05:47] LABS: CHLORIDE 109 mmol/L (98-107)
[2018-08-04 05:55] LABS: ALANINE AMINOTRANSFERASE 28 U/L (12-78); ALKALINE PHOSPHATASE 103 U/L (45-117); ANION GAP 13 mmol/L (5-15); BILIRUBIN,TOTAL 0.6 mg/dL (0.2-1.0); CALCIUM 8.2 mg/dL (8.5-10.1); CREATININE 0.65 mg/dL (0.55-1.02)
[2018-08-04 05:56] LABS: ALBUMIN 2.4 g/dL (3.4-5.0); TOTAL PROTEIN 5.9 g/dL (6.4-8.2)
[2018-08-04 06:37] LABS: MD YES; MEAN CORPUSCULAR HEMOGLOBIN 31.5 pg (27.0-34.8); MEAN CORPUSCULAR HGB CONC 33.7 g/dL (32.4-35.8); MEAN CORPUSCULAR VOLUME 93.6 fL (80-100); MEAN PLATELET VOLUME 7.2 fL (7.4-10.4); PLATELET COUNT 75 x10^3/uL (130-400); RED CELL DISTRIBUTION WIDTH 22.8 % (9.6-15.2)
[2018-08-04 07:03] LABS: BAND#(MANUAL) 0.29 x10^3/uL; BANDS%(MANUAL) 8 % (0-7); BLASTS # (MANUAL) 0.58 x10^3/uL (0-0); EOS#(MANUAL) 0.04 x10^3/uL (0.0-0.4); EOS% (MANUAL) 1 % (1-7); LYMPHS% (MANUAL) 39 % (22-44); METAMYELOCYTES# (MANUAL) 0.11 x10^3/uL (0-0); METAMYELOCYTES% (MANUAL) 3 % (0-1); MONOS#(MANUAL) 0.11 x10^3/uL (0.3-2.7); MONOS% (MANUAL) 3 % (2-9); MYELOCYTES# (MANUAL) 0.07 x10^3/uL (0-0); MYELOCYTES% (MANUAL) 2 % (0-0); NRBC % (MANUAL) 3 % (0-1); SEG#(MANUAL) 1.01 x10^3/uL (1.8-6.8); SEGS% (MANUAL) 28 % (42-75)
[2018-08-04 07:04] LABS: <PLATELET ESTIMATE> DECREASED; ANISOCYTOSIS 1+; BLASTS % (MANUAL) 16 % (0-0); POLYCHROMASIA 1+; SMUDGE CELLS 1+
[2018-08-04 07:08] VITALS: BP 127/78
[2018-08-04 07:19] LABS: <PLT MORPHOLOGY> NORMAL PLT MORPH
[2018-08-04] MEDS: ALLOPURINOL 300 MG TABLET PO SCH ×2 (09:11→20:26)
[2018-08-04] MEDS: AMLODIPINE 5 MG TABLET PO SCH (09:11)
[2018-08-04 12:54] VITALS: BP 130/65
[2018-08-04 20:24] VITALS: BP 122/68
[2018-08-05] MEDS: SODIUM CHLORIDE 0.9% 1,000 ML IV SCH ×3 (00:29→20:28)
[2018-08-05 02:58] VITALS: BP 115/73
[2018-08-05 04:40] LABS: ALBUMIN 2.4 g/dL (3.4-5.0); ANION GAP 11 mmol/L (5-15); CALCIUM 8.3 mg/dL (8.5-10.1); CHLORIDE 107 mmol/L (98-107)
[2018-08-05 04:43] LABS: ALANINE AMINOTRANSFERASE 26 U/L (12-78); ALKALINE PHOSPHATASE 119 U/L (45-117); BILIRUBIN,TOTAL 0.6 mg/dL (0.2-1.0)
[2018-08-05] MEDS: PANTOPROZOLE 40MG TABLET PO SCH (05:30)
[2018-08-05] MEDS: CEFEPIME 2 GM in DEXTROSE 5% 100 ML IV SCH ×3 (05:30→20:29)
[2018-08-05] MEDS: ASPIRIN 325 MG TABLET EC PO SCH (05:30)
[2018-08-05 05:42] LABS: MD YES; MEAN CORPUSCULAR HEMOGLOBIN 31.2 pg (27.0-34.8); MEAN CORPUSCULAR VOLUME 94.8 fL (80-100); MEAN PLATELET VOLUME 7.3 fL (7.4-10.4); PLATELET COUNT 68 x10^3/uL (130-400); RED BLOOD COUNT 2.45 x10^6/uL (3.82-5.3); RED CELL DISTRIBUTION WIDTH 22.8 % (9.6-15.2)
[2018-08-05 05:44] LABS: BAND#(MANUAL) 0.24 x10^3/uL; BANDS%(MANUAL) 7 % (0-7); LYMPH#(MANUAL) 1.43 x10^3/uL (1-3.4); LYMPHS% (MANUAL) 42 % (22-44); METAMYELOCYTES# (MANUAL) 0.07 x10^3/uL (0-0); METAMYELOCYTES% (MANUAL) 2 % (0-1); MONOS#(MANUAL) 0.03 x10^3/uL (0.3-2.7); MONOS% (MANUAL) 1 % (2-9); SEG#(MANUAL) 0.95 x10^3/uL (1.8-6.8); SEGS% (MANUAL) 28 % (42-75)
[2018-08-05 05:45] LABS: ANISOCYTOSIS 1+; BLASTS # (MANUAL) 0.68 x10^3/uL (0-0); BLASTS % (MANUAL) 20 % (0-0); NRBC % (MANUAL) 4 % (0-1); POLYCHROMASIA 1+
[2018-08-05 05:46] LABS: <PLATELET ESTIMATE> DECREASED; <PLT MORPHOLOGY> NORMAL PLT MORPH
[2018-08-05 05:47] LABS: SMUDGE CELLS 1+
[2018-08-05 06:52] VITALS: BP 121/77
[2018-08-05] MEDS: ALLOPURINOL 300 MG TABLET PO SCH ×2 (08:53→20:28)
[2018-08-05] MEDS: AMLODIPINE 5 MG TABLET PO SCH (08:53)
[2018-08-05 12:22] VITALS: BP 129/72
[2018-08-05] MEDS ORDERED: OMNIPAQUE 350 MG/ML, 100ML BOTTLE ONE (14:37)
[2018-08-05 19:50] VITALS: BP 149/83
[2018-08-06 00:13] VITALS: BP 125/80
[2018-08-06 05:11] LABS: ALBUMIN 2.5 g/dL (3.4-5.0); ANION GAP 12 mmol/L (5-15); CALCIUM 8.5 mg/dL (8.5-10.1); CHLORIDE 108 mmol/L (98-107)
[2018-08-06 05:15] LABS: ALANINE AMINOTRANSFERASE 30 U/L (12-78); ALKALINE PHOSPHATASE 130 U/L (45-117); BILIRUBIN,TOTAL 0.5 mg/dL (0.2-1.0); CREATININE 0.64 mg/dL (0.55-1.02); TOTAL PROTEIN 6.4 g/dL (6.4-8.2)
[2018-08-06 05:23] LABS: MEAN CORPUSCULAR HEMOGLOBIN 31.7 pg (27.0-34.8); MEAN CORPUSCULAR HGB CONC 33.4 g/dL (32.4-35.8); MEAN PLATELET VOLUME 7.4 fL (7.4-10.4); PLATELET COUNT 64 x10^3/uL (130-400); RED BLOOD COUNT 2.44 x10^6/uL (3.82-5.3); RED CELL DISTRIBUTION WIDTH 22.8 % (9.6-15.2)
[2018-08-06] MEDS: ASPIRIN 325 MG TABLET EC PO SCH (05:42)
[2018-08-06] MEDS: CEFEPIME 2 GM in DEXTROSE 5% 100 ML IV SCH ×3 (05:42→20:05)
[2018-08-06] MEDS: SODIUM CHLORIDE 0.9% 1,000 ML IV SCH ×2 (05:42→20:05)
[2018-08-06] MEDS: PANTOPROZOLE 40MG TABLET PO SCH (05:42)
[2018-08-06 05:44] LABS: MD YES
[2018-08-06 05:49] LABS: BANDS%(MANUAL) 3 % (0-7); LYMPH#(MANUAL) 1.25 x10^3/uL (1-3.4); LYMPHS% (MANUAL) 38 % (22-44); METAMYELOCYTES# (MANUAL) 0.03 x10^3/uL (0-0); METAMYELOCYTES% (MANUAL) 1 % (0-1); MONOS#(MANUAL) 0.03 x10^3/uL (0.3-2.7); MONOS% (MANUAL) 1 % (2-9); MYELOCYTES# (MANUAL) 0.03 x10^3/uL (0-0); MYELOCYTES% (MANUAL) 1 % (0-0); SEG#(MANUAL) 1.45 x10^3/uL (1.8-6.8); SEGS% (MANUAL) 44 % (42-75)
[2018-08-06 05:51] LABS: ANISOCYTOSIS 1+; BLASTS % (MANUAL) 12 % (0-0); NRBC % (MANUAL) 3 % (0-1); POLYCHROMASIA 1+
[2018-08-06 05:52] LABS: <PLATELET ESTIMATE> DECREASED; <PLT MORPHOLOGY> NORMAL PLT MORPH; SMUDGE CELLS 1+
[2018-08-06 07:55] VITALS: BP 134/77
[2018-08-06] MEDS: ALLOPURINOL 300 MG TABLET PO SCH ×2 (09:15→20:05)
[2018-08-06] MEDS: AMLODIPINE 5 MG TABLET PO SCH (09:15)
[2018-08-06 13:20] VITALS: BP 149/74
[2018-08-06] MEDS ORDERED: PROCHLORPERAZINE 5 MG/ML, 2ML IVPush PRN (15:00)
[2018-08-06] MEDS ORDERED: PROCHLORPERAZINE 25 MG SUPP PR PRN (15:00)
[2018-08-06 18:32] VITALS: BP 132/78
[2018-08-06] MEDS: ALPRazolam 1MG TAB PO PRN (20:05)
[2018-08-07 00:36] VITALS: BP 130/75
[2018-08-07] MEDS: CEFEPIME 2 GM in DEXTROSE 5% 100 ML IV SCH ×2 (04:01→13:31)
[2018-08-07] MEDS: ASPIRIN 325 MG TABLET EC PO SCH (05:47)
[2018-08-07] MEDS: PANTOPROZOLE 40MG TABLET PO SCH (05:47)
[2018-08-07 06:00] LABS: ALBUMIN 2.5 g/dL (3.4-5.0); ANION GAP 13 mmol/L (5-15); CALCIUM 8.4 mg/dL (8.5-10.1); CHLORIDE 107 mmol/L (98-107)
[2018-08-07 06:04] LABS: ALANINE AMINOTRANSFERASE 28 U/L (12-78); ALKALINE PHOSPHATASE 104 U/L (45-117); BILIRUBIN,TOTAL 0.6 mg/dL (0.2-1.0); TOTAL PROTEIN 6.2 g/dL (6.4-8.2)
[2018-08-07 06:19] LABS: MEAN CORPUSCULAR HEMOGLOBIN 31.8 pg (27.0-34.8); MEAN CORPUSCULAR HGB CONC 33.4 g/dL (32.4-35.8); MEAN CORPUSCULAR VOLUME 95.4 fL (80-100); MEAN PLATELET VOLUME 7.4 fL (7.4-10.4); PLATELET COUNT 62 x10^3/uL (130-400); RED BLOOD COUNT 2.37 x10^6/uL (3.82-5.3); RED CELL DISTRIBUTION WIDTH 22.7 % (9.6-15.2)
[2018-08-07 06:21] LABS: MD YES
[2018-08-07 06:24] LABS: BAND#(MANUAL) 0.17 x10^3/uL; BANDS%(MANUAL) 4 % (0-7); BLASTS # (MANUAL) 0.76 x10^3/uL (0-0); EOS#(MANUAL) 0.04 x10^3/uL (0.0-0.4); EOS% (MANUAL) 1 % (1-7); LYMPH#(MANUAL) 1.81 x10^3/uL (1-3.4); LYMPHS% (MANUAL) 43 % (22-44); METAMYELOCYTES# (MANUAL) 0.04 x10^3/uL (0-0); METAMYELOCYTES% (MANUAL) 1 % (0-1); MONOS#(MANUAL) 0.08 x10^3/uL (0.3-2.7); MONOS% (MANUAL) 2 % (2-9); MYELOCYTES# (MANUAL) 0.04 x10^3/uL (0-0); MYELOCYTES% (MANUAL) 1 % (0-0); NRBC % (MANUAL) 5 % (0-1); SEG#(MANUAL) 1.26 x10^3/uL (1.8-6.8); SEGS% (MANUAL) 30 % (42-75)
[2018-08-07 06:25] LABS: BLASTS % (MANUAL) 18 % (0-0)
[2018-08-07 06:26] LABS: <PLATELET ESTIMATE> DECREASED; <PLT MORPHOLOGY> NORMAL PLT MORPH; ANISOCYTOSIS 1+; POLYCHROMASIA 1+; SMUDGE CELLS 1+
[2018-08-07 08:25] VITALS: BP 125/75
[2018-08-07] MEDS: ANORO ELLIPTA IH SCH (10:19)
[2018-08-07] MEDS: SODIUM CHLORIDE 0.9% 1,000 ML IV SCH ×2 (10:20→20:39)
[2018-08-07] MEDS: ALLOPURINOL 300 MG TABLET PO SCH ×2 (10:20→20:22)
[2018-08-07] MEDS: AMLODIPINE 5 MG TABLET PO SCH (10:20)
[2018-08-07] MEDS: PROCHLORPERAZINE 10MG TABLET PO PRN (13:40)
[2018-08-07 15:31] VITALS: BP 122/73
[2018-08-07] MEDS ORDERED: SODIUM CHLORIDE 0.45%, 1,000ML IVBOLUS ONE ×3 (16:00→17:00)
[2018-08-07 18:36] VITALS: BP 122/74
[2018-08-07] MEDS: LEVOFLOXACIN 500 MG TABLET PO SCH (20:22)
[2018-08-08 00:08] VITALS: BP 121/70
[2018-08-08] MEDS: SODIUM CHLORIDE 0.9% 1,000 ML IV SCH (03:53)
[2018-08-08 05:58] LABS: ALANINE AMINOTRANSFERASE 23 U/L (12-78); ALBUMIN 2.3 g/dL (3.4-5.0); ANION GAP 15 mmol/L (5-15); CALCIUM 8.1 mg/dL (8.5-10.1); CHLORIDE 107 mmol/L (98-107); CREATININE 0.71 mg/dL (0.55-1.02)
[2018-08-08 06:01] LABS: ALKALINE PHOSPHATASE 100 U/L (45-117); BILIRUBIN,TOTAL 0.4 mg/dL (0.2-1.0); TOTAL PROTEIN 5.7 g/dL (6.4-8.2)
[2018-08-08] MEDS: ASPIRIN 325 MG TABLET EC PO SCH (06:07)
[2018-08-08] MEDS: PANTOPROZOLE 40MG TABLET PO SCH (06:07)
[2018-08-08 07:58] VITALS: BP 135/79
[2018-08-08 08:22] LABS: MEAN CORPUSCULAR HEMOGLOBIN 32.4 pg (27.0-34.8); MEAN CORPUSCULAR VOLUME 98.1 fL (80-100); MEAN PLATELET VOLUME 7.5 fL (7.4-10.4); PLATELET COUNT 57 x10^3/uL (130-400); RED BLOOD COUNT 2.18 x10^6/uL (3.82-5.3); RED CELL DISTRIBUTION WIDTH 24.3 % (9.6-15.2)
[2018-08-08 08:24] LABS: MD YES
[2018-08-08 08:28] LABS: BAND#(MANUAL) 0.41 x10^3/uL; BANDS%(MANUAL) 11 % (0-7); LYMPH#(MANUAL) 1.52 x10^3/uL (1-3.4); LYMPHS% (MANUAL) 41 % (22-44); METAMYELOCYTES# (MANUAL) 0.11 x10^3/uL (0-0); METAMYELOCYTES% (MANUAL) 3 % (0-1); MONOS#(MANUAL) 0.04 x10^3/uL (0.3-2.7); MONOS% (MANUAL) 1 % (2-9); MYELOCYTES# (MANUAL) 0.15 x10^3/uL (0-0); MYELOCYTES% (MANUAL) 4 % (0-0); SEG#(MANUAL) 0.67 x10^3/uL (1.8-6.8); SEGS% (MANUAL) 18 % (42-75)
[2018-08-08] MEDS ORDERED: POTASSIUM CHLORIDE 20 MEQ TAB.ER.PRT PO ONE ×2 (08:30→11:30)
[2018-08-08] MEDS ORDERED: MAGNESIUM SULFATE PMX 2GM/50ML 50 ML IV ONE (08:30)
[2018-08-08 08:32] LABS: BLASTS # (MANUAL) 0.81 x10^3/uL (0-0); BLASTS % (MANUAL) 22 % (0-0); NRBC % (MANUAL) 3 % (0-1)
[2018-08-08 08:33] LABS: ANISOCYTOSIS 1+
[2018-08-08 08:34] LABS: <PLATELET ESTIMATE> DECREASED; <PLT MORPHOLOGY> NORMAL PLT MORPH; POLYCHROMASIA 1+
[2018-08-08] MEDS: AMLODIPINE 5 MG TABLET PO SCH (09:53)
[2018-08-08] MEDS: ALLOPURINOL 300 MG TABLET PO SCH ×2 (09:53→20:49)
[2018-08-08] MEDS: ANORO ELLIPTA IH SCH (09:53)
[2018-08-08 13:59] VITALS: BP 117/61
[2018-08-08 20:27] VITALS: BP 130/87
[2018-08-08] MEDS: LEVOFLOXACIN 500 MG TABLET PO SCH (20:49)
[2018-08-08] MEDS: ALPRazolam 1MG TAB PO PRN (23:14)
[2018-08-09 00:40] VITALS: BP 132/74
[2018-08-09] MEDS: SODIUM CHLORIDE 0.9% 1,000 ML IV SCH ×3 (05:20→13:44)
[2018-08-09 05:48] LABS: ALBUMIN 1.9 g/dL (3.4-5.0); ANION GAP 13 mmol/L (5-15); CALCIUM 6.5 mg/dL (8.5-10.1); CHLORIDE 116 mmol/L (98-107)
[2018-08-09 05:52] LABS: ALANINE AMINOTRANSFERASE 20 U/L (12-78); ALKALINE PHOSPHATASE 78 U/L (45-117); BILIRUBIN,TOTAL 0.3 mg/dL (0.2-1.0); CREATININE 0.39 mg/dL (0.55-1.02); TOTAL PROTEIN 4.6 g/dL (6.4-8.2)
[2018-08-09] MEDS: PANTOPROZOLE 40MG TABLET PO SCH (06:20)
[2018-08-09 06:29] LABS: MD YES; MEAN CORPUSCULAR HEMOGLOBIN 32.4 pg (27.0-34.8); MEAN CORPUSCULAR HGB CONC 33.4 g/dL (32.4-35.8); MEAN CORPUSCULAR VOLUME 96.8 fL (80-100); MEAN PLATELET VOLUME 7.4 fL (7.4-10.4); PLATELET COUNT 52 x10^3/uL (130-400); RED BLOOD COUNT 2.16 x10^6/uL (3.82-5.3); RED CELL DISTRIBUTION WIDTH 24.3 % (9.6-15.2)
[2018-08-09 06:32] LABS: BAND#(MANUAL) 0.11 x10^3/uL; BANDS%(MANUAL) 3 % (0-7); LYMPH#(MANUAL) 1.47 x10^3/uL (1-3.4); LYMPHS% (MANUAL) 42 % (22-44); METAMYELOCYTES# (MANUAL) 0.04 x10^3/uL (0-0); METAMYELOCYTES% (MANUAL) 1 % (0-1); MONOS#(MANUAL) 0.07 x10^3/uL (0.3-2.7); MONOS% (MANUAL) 2 % (2-9); MYELOCYTES# (MANUAL) 0.11 x10^3/uL (0-0); MYELOCYTES% (MANUAL) 3 % (0-0); SEG#(MANUAL) 0.98 x10^3/uL (1.8-6.8); SEGS% (MANUAL) 28 % (42-75)
[2018-08-09 06:33] LABS: BLASTS # (MANUAL) 0.74 x10^3/uL (0-0); BLASTS % (MANUAL) 21 % (0-0); NRBC % (MANUAL) 6 % (0-1)
[2018-08-09 06:34] LABS: ANISOCYTOSIS 1+; POLYCHROMASIA 1+
[2018-08-09 06:35] LABS: OVALOCYTES 1+
[2018-08-09 06:36] LABS: <PLATELET ESTIMATE> DECREASED; <PLT MORPHOLOGY> NORMAL PLT MORPH
[2018-08-09 07:14] VITALS: BP 117/70
[2018-08-09] MEDS: ANORO ELLIPTA IH SCH (09:00)
[2018-08-09] MEDS ORDERED: ONDANSETRON 16 MG in SODIUM CHLORIDE 0.9% 50 ML IVPB SCH (09:30)
[2018-08-09] MEDS ORDERED: POTASSIUM CHLORIDE 20 MEQ TAB.ER.PRT PO ONE ×2 (09:30→12:30)
[2018-08-09] MEDS ORDERED: SODIUM PHOSPHATE 4 MEQ/ML IV SCH (09:30)
[2018-08-09] MEDS ORDERED: MAGNESIUM SULFATE 3 GM in SODIUM CHLORIDE 0.9% 100 ML IV ONE ×2 (09:30→18:00)
[2018-08-09] MEDS ORDERED: FAMOTIDINE 20 MG/2 ML IVPush SCH (10:00)
[2018-08-09] MEDS ORDERED: ACETAMINOPHEN 325 MG TABLET PO ONE (10:00)
[2018-08-09] MEDS ORDERED: FOSAPREPITANT 150 MG in SODIUM CHLORIDE 0.9% 145 ML IV ONE (10:00)
[2018-08-09] MEDS ORDERED: DIPHENHYDRAMINE 50 MG/ML, 1ML IVPush ONE ×2 (10:00→14:00)
[2018-08-09] MEDS ORDERED: DEXTROSE 4 GM TAB.CHEW PO PRN (10:00)
[2018-08-09] MEDS ORDERED: GLUCAGON 1 MG IM PRN (10:00)
[2018-08-09] MEDS ORDERED: DEXTROSE 50%, 50ML SYRINGE IVPush PRN (10:00)
[2018-08-09] MEDS: ALLOPURINOL 300 MG TABLET PO SCH ×2 (10:02→21:02)
[2018-08-09] MEDS: AMLODIPINE 5 MG TABLET PO SCH (10:02)
[2018-08-09] MEDS ORDERED: RITUXIMAB 700 MG in SODIUM CHLORIDE 0.9% 250 ML IV ONE ×2 (10:30→11:00)
[2018-08-09] MEDS ORDERED: HYDROCORTISONE 250 MG/2 ML IVPush ONE (12:30)
[2018-08-09] MEDS ORDERED: DIPHENHYDRAMINE 50 MG/ML, 1ML IM ONE (12:30)
[2018-08-09 12:52] VITALS: BP 127/71
[2018-08-09] MEDS ORDERED: DEXAMETHASONE 40 MG in SODIUM CHLORIDE 0.9% 50 ML IV SCH (13:30)
[2018-08-09] MEDS ORDERED: LORazepam 2 MG/ML, 1ML IVPush PRN (15:30)
[2018-08-09] MEDS: ACETAMINOPHEN 325 MG TABLET PO PRN (17:15)
[2018-08-09] MEDS ORDERED: SODIUM PHOSPHATE 20 MMOL in SODIUM CHLORIDE 0.9% 250 ML IV ONE (18:00)
[2018-08-09 18:56] VITALS: BP 104/65
[2018-08-09] MEDS ORDERED: POTASSIUM PHOSPHATE 22 MEQ in SODIUM CHLORIDE 0.9% 250 ML IV ONE (21:00)
[2018-08-09] MEDS: SODIUM CHLORIDE FLUSH 10ML SYR IVF SCH (21:00)
[2018-08-09] MEDS: LEVOFLOXACIN 500 MG TABLET PO SCH (21:02)
[2018-08-10] MEDS: ALPRazolam 1MG TAB PO PRN ×2 (01:11→22:49)
[2018-08-10 01:27] VITALS: BP 118/74
[2018-08-10 05:43] LABS: ALBUMIN 2.4 g/dL (3.4-5.0); ANION GAP 16 mmol/L (5-15); CALCIUM 8.1 mg/dL (8.5-10.1); CHLORIDE 108 mmol/L (98-107)
[2018-08-10 05:46] LABS: ALANINE AMINOTRANSFERASE 50 U/L (12-78); ALKALINE PHOSPHATASE 137 U/L (45-117); BILIRUBIN,TOTAL 0.6 mg/dL (0.2-1.0)
[2018-08-10] MEDS: PANTOPROZOLE 40MG TABLET PO SCH (06:45)
[2018-08-10 06:48] LABS: MEAN CORPUSCULAR HGB CONC 33.9 g/dL (32.4-35.8); MEAN CORPUSCULAR VOLUME 97.2 fL (80-100); MEAN PLATELET VOLUME 7.6 fL (7.4-10.4); RED BLOOD COUNT 2.15 x10^6/uL (3.82-5.3)
[2018-08-10 06:51] LABS: MD YES; PLATELET COUNT 42 x10^3/uL (130-400); RED CELL DISTRIBUTION WIDTH 24.7 % (9.6-15.2)
[2018-08-10 06:58] LABS: BANDS%(MANUAL) 22 % (0-7); BASOS#(MANUAL) 0.02 x10^3/uL (0-0.1); BASOS% (MANUAL) 1 % (0-1); EOS#(MANUAL) 0.02 x10^3/uL (0.0-0.4); EOS% (MANUAL) 1 % (1-7); METAMYELOCYTES# (MANUAL) 0.13 x10^3/uL (0-0); METAMYELOCYTES% (MANUAL) 7 % (0-1); SEG#(MANUAL) 0.72 x10^3/uL (1.8-6.8); SEGS% (MANUAL) 40 % (42-75)
[2018-08-10 06:59] LABS: NRBC % (MANUAL) 4 % (0-1)
[2018-08-10 07:01] LABS: BLASTS # (MANUAL) 0.11 x10^3/uL (0-0); BLASTS % (MANUAL) 6 % (0-0); LYMPH#(MANUAL) 0.41 x10^3/uL (1-3.4); LYMPHS% (MANUAL) 23 % (22-44)
[2018-08-10 07:02] LABS: ANISOCYTOSIS 2+
[2018-08-10 07:03] LABS: <PLATELET ESTIMATE> DECREASED; <PLT MORPHOLOGY> NORMAL PLT MORPH
[2018-08-10 07:12] VITALS: BP 128/77
[2018-08-10] MEDS: FLUCONAZOLE 100 MG TABLET PO SCH (08:31)
[2018-08-10] MEDS: AMLODIPINE 5 MG TABLET PO SCH (08:31)
[2018-08-10] MEDS: ACYCLOVIR 200 MG CAPSULE PO SCH ×2 (08:32→20:27)
[2018-08-10] MEDS: ONDANSETRON 16 MG in SODIUM CHLORIDE 0.9% 50 ML IVPB SCH (08:32)
[2018-08-10] MEDS: SODIUM CHLORIDE 0.9% 1,000 ML IV SCH ×2 (08:33→22:49)
[2018-08-10] MEDS: FAMOTIDINE 20 MG/2 ML IVPush SCH (08:33)
[2018-08-10] MEDS: ANORO ELLIPTA IH SCH (09:00)
[2018-08-10] MEDS: ALLOPURINOL 300 MG TABLET PO SCH ×2 (09:17→20:27)
[2018-08-10] MEDS: SODIUM CHLORIDE FLUSH 10ML SYR IVF SCH ×2 (09:18→20:28)
[2018-08-10] MEDS: DEXAMETHASONE 40 MG in SODIUM CHLORIDE 0.9% 50 ML IV SCH (09:18)
[2018-08-10] MEDS: SODIUM CHLORIDE 0.9% IVPB SCH (10:05)
[2018-08-10] MEDS: MESNA IVPB SCH (10:05)
[2018-08-10] MEDS: SODIUM CHLORIDE 0.9% IV SCH ×2 (10:07→22:27)
[2018-08-10] MEDS: CYCLOPHOSPHAMIDE IV SCH ×2 (10:07→22:27)
[2018-08-10 13:18] VITALS: BP 135/73
[2018-08-10 18:25] VITALS: BP 137/78
[2018-08-10] MEDS: LEVOFLOXACIN 500 MG TABLET PO SCH (20:27)
[2018-08-11] VITALS (9 sets, daily range): BP systolic 99–139; BP diastolic 60–89
[2018-08-11 04:27] LABS: MEAN CORPUSCULAR HEMOGLOBIN 32.1 pg (27.0-34.8); MEAN CORPUSCULAR HGB CONC 33.4 g/dL (32.4-35.8); MEAN PLATELET VOLUME 7.9 fL (7.4-10.4); RED BLOOD COUNT 2.16 x10^6/uL (3.82-5.3); RED CELL DISTRIBUTION WIDTH 24.7 % (9.6-15.2)
[2018-08-11 04:32] LABS: ALANINE AMINOTRANSFERASE 45 U/L (12-78); ALBUMIN 2.5 g/dL (3.4-5.0); ANION GAP 13 mmol/L (5-15); CALCIUM 7.7 mg/dL (8.5-10.1); CHLORIDE 106 mmol/L (98-107)
[2018-08-11 04:34] LABS: PLATELET COUNT 33 x10^3/uL (130-400)
[2018-08-11 04:35] LABS: ALKALINE PHOSPHATASE 104 U/L (45-117); BILIRUBIN,TOTAL 0.4 mg/dL (0.2-1.0); CREATININE 0.64 mg/dL (0.55-1.02); TOTAL PROTEIN 6.1 g/dL (6.4-8.2)
[2018-08-11 05:39] LABS: MD YES
[2018-08-11 05:48] LABS: BANDS%(MANUAL) 15 % (0-7); LYMPH#(MANUAL) 0.32 x10^3/uL (1-3.4); LYMPHS% (MANUAL) 16 % (22-44); MONOS#(MANUAL) 0.02 x10^3/uL (0.3-2.7); MONOS% (MANUAL) 1 % (2-9); MYELOCYTES# (MANUAL) 0.02 x10^3/uL (0-0); MYELOCYTES% (MANUAL) 1 % (0-0); SEG#(MANUAL) 1.24 x10^3/uL (1.8-6.8); SEGS% (MANUAL) 62 % (42-75)
[2018-08-11 05:49] LABS: ANISOCYTOSIS 1+; BLASTS % (MANUAL) 5 % (0-0); NRBC % (MANUAL) 6 % (0-1); POLYCHROMASIA 1+
[2018-08-11 05:50] LABS: <PLATELET ESTIMATE> DECREASED; <PLT MORPHOLOGY> NORMAL PLT MORPH
[2018-08-11] MEDS: PANTOPROZOLE 40MG TABLET PO SCH (06:06)
[2018-08-11] MEDS: AMLODIPINE 5 MG TABLET PO SCH (08:52)
[2018-08-11] MEDS: FLUCONAZOLE 100 MG TABLET PO SCH (08:52)
[2018-08-11] MEDS: ONDANSETRON 16 MG in SODIUM CHLORIDE 0.9% 50 ML IVPB SCH (08:52)
[2018-08-11] MEDS: FAMOTIDINE 20 MG/2 ML IVPush SCH (08:52)
[2018-08-11] MEDS: ALLOPURINOL 300 MG TABLET PO SCH ×2 (08:52→20:44)
[2018-08-11] MEDS: ACYCLOVIR 200 MG CAPSULE PO SCH ×2 (08:53→20:44)
[2018-08-11] MEDS: ANORO ELLIPTA IH SCH (08:54)
[2018-08-11] MEDS: SODIUM CHLORIDE FLUSH 10ML SYR IVF SCH ×2 (09:24→20:45)
[2018-08-11] MEDS: SODIUM CHLORIDE 0.9% 1,000 ML IV SCH (11:42)
[2018-08-11] MEDS: DEXAMETHASONE 40 MG in SODIUM CHLORIDE 0.9% 50 ML IV SCH (11:42)
[2018-08-11] MEDS: MESNA IVPB SCH (11:42)
[2018-08-11] MEDS: SODIUM CHLORIDE 0.9% IVPB SCH (11:42)
[2018-08-11] MEDS: CYCLOPHOSPHAMIDE IV SCH ×2 (12:34→23:47)
[2018-08-11] MEDS: SODIUM CHLORIDE 0.9% IV SCH ×2 (12:34→23:47)
[2018-08-11] MEDS: LEVOFLOXACIN 500 MG TABLET PO SCH (20:52)
[2018-08-12 03:18] VITALS: BP 148/79
[2018-08-12] MEDS: SODIUM CHLORIDE 0.9% 1,000 ML IV SCH ×2 (03:25→16:39)
[2018-08-12 06:20] LABS: ALBUMIN 2.3 g/dL (3.4-5.0); ANION GAP 10 mmol/L (5-15); CALCIUM 7.2 mg/dL (8.5-10.1); CHLORIDE 109 mmol/L (98-107)
[2018-08-12 06:23] LABS: ALANINE AMINOTRANSFERASE 46 U/L (12-78); ALKALINE PHOSPHATASE 87 U/L (45-117); BILIRUBIN,TOTAL 0.4 mg/dL (0.2-1.0); CREATININE 0.57 mg/dL (0.55-1.02); TOTAL PROTEIN 5.2 g/dL (6.4-8.2)
[2018-08-12 06:27] LABS: MEAN CORPUSCULAR HEMOGLOBIN 32.2 pg (27.0-34.8); MEAN CORPUSCULAR HGB CONC 33.8 g/dL (32.4-35.8); MEAN CORPUSCULAR VOLUME 95.5 fL (80-100); RED BLOOD COUNT 2.55 x10^6/uL (3.82-5.3)
[2018-08-12] MEDS: PANTOPROZOLE 40MG TABLET PO SCH (06:32)
[2018-08-12 06:48] LABS: MD YES
[2018-08-12 06:49] LABS: MEAN PLATELET VOLUME 9.3 fL (7.4-10.4)
[2018-08-12 06:50] LABS: PLATELET COUNT 23 x10^3/uL (130-400)
[2018-08-12 07:05] LABS: BAND#(MANUAL) 0.08 x10^3/uL; BANDS%(MANUAL) 5 % (0-7); EOS#(MANUAL) 0.02 x10^3/uL (0.0-0.4); EOS% (MANUAL) 1 % (1-7); LYMPH#(MANUAL) 0.18 x10^3/uL (1-3.4); LYMPHS% (MANUAL) 12 % (22-44); METAMYELOCYTES# (MANUAL) 0.02 x10^3/uL (0-0); METAMYELOCYTES% (MANUAL) 1 % (0-1); NRBC % (MANUAL) 3 % (0-1); SEG#(MANUAL) 1.22 x10^3/uL (1.8-6.8); SEGS% (MANUAL) 81 % (42-75)
[2018-08-12 07:06] LABS: <PLATELET ESTIMATE> DECREASED; <PLT MORPHOLOGY> NORMAL PLT MORPH; ANISOCYTOSIS 1+; POLYCHROMASIA 1+
[2018-08-12 07:53] VITALS: BP 158/78
[2018-08-12] MEDS: ANORO ELLIPTA IH SCH (08:18)
[2018-08-12] MEDS: FAMOTIDINE 20 MG/2 ML IVPush SCH (08:22)
[2018-08-12] MEDS: AMLODIPINE 5 MG TABLET PO SCH (08:23)
[2018-08-12] MEDS: ALLOPURINOL 300 MG TABLET PO SCH ×2 (08:23→21:29)
[2018-08-12] MEDS: ACYCLOVIR 200 MG CAPSULE PO SCH ×2 (08:23→21:29)
[2018-08-12] MEDS: FLUCONAZOLE 100 MG TABLET PO SCH (08:23)
[2018-08-12] MEDS: SODIUM CHLORIDE FLUSH 10ML SYR IVF SCH ×2 (08:24→21:29)
[2018-08-12] MEDS: ONDANSETRON 16 MG in SODIUM CHLORIDE 0.9% 50 ML IVPB SCH ×2 (08:24→09:00)
[2018-08-12] MEDS: DEXAMETHASONE 40 MG in SODIUM CHLORIDE 0.9% 50 ML IV SCH (09:56)
[2018-08-12] MEDS: MESNA IVPB SCH (09:56)
[2018-08-12] MEDS: SODIUM CHLORIDE 0.9% IVPB SCH (09:56)
[2018-08-12] MEDS ORDERED: SODIUM CHLORIDE 0.9% IV SCH (11:00)
[2018-08-12] MEDS ORDERED: CYCLOPHOSPHAMIDE IV SCH (11:00)
[2018-08-12] MEDS: SODIUM CHLORIDE 0.9% IV SCH (12:49)
[2018-08-12] MEDS: CYCLOPHOSPHAMIDE IV SCH (12:49)
[2018-08-12 13:57] VITALS: BP 136/82
[2018-08-12 20:18] VITALS: BP 141/75
[2018-08-12] MEDS: LEVOFLOXACIN 500 MG TABLET PO SCH (21:40)
[2018-08-13] MEDS: SODIUM CHLORIDE 0.9% IV SCH ×2 (00:21→11:09)
[2018-08-13] MEDS: CYCLOPHOSPHAMIDE IV SCH (00:21)
[2018-08-13] MEDS: ALPRazolam 1MG TAB PO PRN (00:25)
[2018-08-13] MEDS: PROCHLORPERAZINE 10MG TABLET PO PRN (00:25)
[2018-08-13 02:09] VITALS: BP 132/79
[2018-08-13] MEDS: SODIUM CHLORIDE 0.9% 1,000 ML IV SCH ×2 (05:55→19:27)
[2018-08-13 06:26] LABS: ALBUMIN 2.1 g/dL (3.4-5.0); ANION GAP 10 mmol/L (5-15); CALCIUM 6.3 mg/dL (8.5-10.1); CHLORIDE 110 mmol/L (98-107)
[2018-08-13 06:27] LABS: MEAN CORPUSCULAR HGB CONC 33.6 g/dL (32.4-35.8); MEAN CORPUSCULAR VOLUME 95.4 fL (80-100); RED BLOOD COUNT 2.42 x10^6/uL (3.82-5.3); RED CELL DISTRIBUTION WIDTH 24.1 % (9.6-15.2)
[2018-08-13 06:30] LABS: ALANINE AMINOTRANSFERASE 40 U/L (12-78); ALKALINE PHOSPHATASE 74 U/L (45-117); BILIRUBIN,TOTAL 0.5 mg/dL (0.2-1.0); CREATININE 0.54 mg/dL (0.55-1.02); TOTAL PROTEIN 4.9 g/dL (6.4-8.2)
[2018-08-13 06:57] LABS: MEAN PLATELET VOLUME 8.7 fL (7.4-10.4)
[2018-08-13 06:58] LABS: MD YES; PLATELET COUNT 23 x10^3/uL (130-400)
[2018-08-13 07:11] LABS: <PLATELET ESTIMATE> DECREASED; <PLT MORPHOLOGY> NORMAL PLT MORPH; ANISOCYTOSIS 1+; LYMPH#(MANUAL) 0.14 x10^3/uL (1-3.4); LYMPHS% (MANUAL) 13 % (22-44); POLYCHROMASIA 1+; SEG#(MANUAL) 0.96 x10^3/uL (1.8-6.8); SEGS% (MANUAL) 87 % (42-75)
[2018-08-13 07:58] VITALS: BP 129/72
[2018-08-13] MEDS ORDERED: FAMOTIDINE 20 MG/2 ML IVPush ONE (08:30)
[2018-08-13] MEDS: ANORO ELLIPTA IH SCH (09:00)
[2018-08-13] MEDS: PANTOPROZOLE 40MG TABLET PO SCH (09:27)
[2018-08-13] MEDS: ALLOPURINOL 300 MG TABLET PO SCH ×2 (09:28→22:19)
[2018-08-13] MEDS: ACYCLOVIR 200 MG CAPSULE PO SCH ×2 (09:28→22:19)
[2018-08-13] MEDS: FLUCONAZOLE 100 MG TABLET PO SCH (09:28)
[2018-08-13] MEDS: AMLODIPINE 5 MG TABLET PO SCH (09:29)
[2018-08-13] MEDS: SODIUM CHLORIDE FLUSH 10ML SYR IVF SCH ×2 (09:29→22:19)
[2018-08-13] MEDS: ONDANSETRON 16 MG in SODIUM CHLORIDE 0.9% 50 ML IVPB SCH (09:29)
[2018-08-13] MEDS ORDERED: SODIUM CHLORIDE 0.9% IV SCH (11:00)
[2018-08-13] MEDS ORDERED: DOXORUBICIN IV SCH (11:00)
[2018-08-13] MEDS: DOXORUBICIN IV SCH (11:09)
[2018-08-13] MEDS: ACETAMINOPHEN 325 MG TABLET PO PRN ×2 (11:58→22:30)
[2018-08-13 13:36] VITALS: BP 130/77
[2018-08-13 19:38] VITALS: BP 131/71
[2018-08-13] MEDS: LEVOFLOXACIN 500 MG TABLET PO SCH (22:19)
[2018-08-14 03:11] VITALS: BP 117/70
[2018-08-14 05:38] LABS: ALBUMIN 2.4 g/dL (3.4-5.0); ANION GAP 7 mmol/L (5-15); CALCIUM 6.9 mg/dL (8.5-10.1); CHLORIDE 108 mmol/L (98-107)
[2018-08-14 05:41] LABS: ALANINE AMINOTRANSFERASE 49 U/L (12-78); ALKALINE PHOSPHATASE 78 U/L (45-117); BILIRUBIN,TOTAL 0.6 mg/dL (0.2-1.0); CREATININE 0.49 mg/dL (0.55-1.02); TOTAL PROTEIN 4.8 g/dL (6.4-8.2)
[2018-08-14 06:02] LABS: MD YES; MEAN CORPUSCULAR HEMOGLOBIN 31.7 pg (27.0-34.8); MEAN CORPUSCULAR HGB CONC 33.4 g/dL (32.4-35.8); MEAN CORPUSCULAR VOLUME 94.9 fL (80-100); RED BLOOD COUNT 2.47 x10^6/uL (3.82-5.3)
[2018-08-14 06:09] LABS: PLATELET COUNT 21 x10^3/uL (130-400)
[2018-08-14 06:11] LABS: LYMPHS% (MANUAL) 16 % (22-44); NRBC % (MANUAL) 3 % (0-1); SEGS% (MANUAL) 84 % (42-75)
[2018-08-14 06:12] LABS: ANISOCYTOSIS 1+; POLYCHROMASIA 1+; TEAR DROPS 1+
[2018-08-14 06:13] LABS: <PLATELET ESTIMATE> DECREASED; <PLT MORPHOLOGY> NORMAL PLT MORPH; OVALOCYTES 1+
[2018-08-14 07:14] VITALS: BP 122/76
[2018-08-14] MEDS: ANORO ELLIPTA IH SCH (09:00)
[2018-08-14] MEDS: ACYCLOVIR 200 MG CAPSULE PO SCH ×2 (09:41→21:50)
[2018-08-14] MEDS: ALLOPURINOL 300 MG TABLET PO SCH (09:42)
[2018-08-14] MEDS: SODIUM CHLORIDE FLUSH 10ML SYR IVF SCH ×2 (09:42→21:51)
[2018-08-14] MEDS: AMLODIPINE 5 MG TABLET PO SCH (09:42)
[2018-08-14] MEDS: FLUCONAZOLE 100 MG TABLET PO SCH (09:42)
[2018-08-14] MEDS: PANTOPROZOLE 40MG TABLET PO SCH (09:43)
[2018-08-14] MEDS: SODIUM CHLORIDE 0.9% 1,000 ML IV SCH ×2 (10:03→22:45)
[2018-08-14] MEDS: SODIUM CHLORIDE 0.9% IV SCH (11:43)
[2018-08-14] MEDS: DOXORUBICIN IV SCH (11:43)
[2018-08-14 13:40] VITALS: BP 117/72
[2018-08-14] MEDS: ONDANSETRON 2MG/ML, 2ML IVPush PRN (16:44)
[2018-08-14 19:40] VITALS: BP 115/72
[2018-08-14] MEDS: ALPRazolam 1MG TAB PO PRN (21:51)
[2018-08-14] MEDS: LEVOFLOXACIN 500 MG TABLET PO SCH (21:51)
[2018-08-15 02:09] VITALS: BP 121/73
[2018-08-15 04:47] LABS: ALANINE AMINOTRANSFERASE 43 U/L (12-78); ALBUMIN 2.3 g/dL (3.4-5.0); ANION GAP 8 mmol/L (5-15); CALCIUM 7.1 mg/dL (8.5-10.1); CHLORIDE 107 mmol/L (98-107); CREATININE 0.46 mg/dL (0.55-1.02)
[2018-08-15 04:50] LABS: ALKALINE PHOSPHATASE 70 U/L (45-117); BILIRUBIN,TOTAL 0.5 mg/dL (0.2-1.0); TOTAL PROTEIN 4.8 g/dL (6.4-8.2)
[2018-08-15] MEDS: PANTOPROZOLE 40MG TABLET PO SCH (06:30)
[2018-08-15 06:49] VITALS: BP 125/73
[2018-08-15] MEDS: DOCUSATE 100 MG CAPSULE PO SCH (08:55)
[2018-08-15] MEDS: FLUCONAZOLE 100 MG TABLET PO SCH (08:55)
[2018-08-15] MEDS: ACYCLOVIR 200 MG CAPSULE PO SCH ×2 (08:55→20:35)
[2018-08-15] MEDS: SODIUM CHLORIDE FLUSH 10ML SYR IVF SCH ×2 (08:56→21:00)
[2018-08-15] MEDS: ANORO ELLIPTA IH SCH (08:56)
[2018-08-15] MEDS: AMLODIPINE 5 MG TABLET PO SCH (08:56)
[2018-08-15] MEDS: ALLOPURINOL 300 MG TABLET PO SCH (08:56)
[2018-08-15 09:34] LABS: MEAN CORPUSCULAR HEMOGLOBIN 31.5 pg (27.0-34.8); MEAN CORPUSCULAR HGB CONC 33.5 g/dL (32.4-35.8); MEAN CORPUSCULAR VOLUME 94.1 fL (80-100); RED BLOOD COUNT 2.56 x10^6/uL (3.82-5.3); RED CELL DISTRIBUTION WIDTH 23.3 % (9.6-15.2)
[2018-08-15 09:55] LABS: MEAN PLATELET VOLUME 8.1 fL (7.4-10.4)
[2018-08-15 09:57] LABS: MD YES
[2018-08-15 10:03] LABS: PLATELET COUNT 20 x10^3/uL (130-400)
[2018-08-15 10:07] LABS: LYMPH#(MANUAL) 0.12 x10^3/uL (1-3.4); LYMPHS% (MANUAL) 58 % (22-44); NRBC % (MANUAL) 4 % (0-1); SEG#(MANUAL) 0.08 x10^3/uL (1.8-6.8); SEGS% (MANUAL) 42 % (42-75)
[2018-08-15 10:08] LABS: <PLATELET ESTIMATE> DECREASED; ANISOCYTOSIS 1+; OVALOCYTES 1+; TEAR DROPS 1+
[2018-08-15 10:09] LABS: <PLT MORPHOLOGY> NORMAL PLT MORPH
[2018-08-15] MEDS: SODIUM CHLORIDE 0.9% 1,000 ML IV SCH (11:24)
[2018-08-15 15:39] VITALS: BP 124/76
[2018-08-15 19:20] VITALS: BP 128/71
[2018-08-15] MEDS: LEVOFLOXACIN 500 MG TABLET PO SCH (20:35)
[2018-08-16 01:56] VITALS: BP 143/84
[2018-08-16] MEDS: SODIUM CHLORIDE 0.9% 1,000 ML IV SCH ×2 (02:20→18:16)
[2018-08-16] MEDS: PANTOPROZOLE 40MG TABLET PO SCH (05:43)
[2018-08-16 06:14] LABS: ALANINE AMINOTRANSFERASE 33 U/L (12-78); ALBUMIN 2.2 g/dL (3.4-5.0); ANION GAP 8 mmol/L (5-15); CALCIUM 7.3 mg/dL (8.5-10.1); CHLORIDE 108 mmol/L (98-107); CREATININE 0.47 mg/dL (0.55-1.02)
[2018-08-16 06:16] LABS: ALKALINE PHOSPHATASE 66 U/L (45-117); BILIRUBIN,TOTAL 0.5 mg/dL (0.2-1.0); TOTAL PROTEIN 4.7 g/dL (6.4-8.2)
[2018-08-16 06:33] LABS: MD YES; MEAN CORPUSCULAR HEMOGLOBIN 32.1 pg (27.0-34.8); MEAN CORPUSCULAR HGB CONC 33.8 g/dL (32.4-35.8); MEAN CORPUSCULAR VOLUME 94.9 fL (80-100); MEAN PLATELET VOLUME 7.7 fL (7.4-10.4); RED BLOOD COUNT 2.24 x10^6/uL (3.82-5.3); RED CELL DISTRIBUTION WIDTH 22.8 % (9.6-15.2)
[2018-08-16 06:34] LABS: PLATELET COUNT 23 x10^3/uL (130-400)
[2018-08-16 06:50] LABS: ANISOCYTOSIS 1+; EOS% (MANUAL) 2 % (1-7); LYMPH#(MANUAL) 0.18 x10^3/uL (1-3.4); LYMPHS% (MANUAL) 88 % (22-44); SEG#(MANUAL) 0.02 x10^3/uL (1.8-6.8); SEGS% (MANUAL) 10 % (42-75); TEAR DROPS 1+
[2018-08-16 06:51] LABS: <PLATELET ESTIMATE> DECREASED; <PLT MORPHOLOGY> NORMAL PLT MORPH; OVALOCYTES 1+
[2018-08-16 07:30] VITALS: BP 135/76
[2018-08-16] MEDS: ANORO ELLIPTA IH SCH (09:00)
[2018-08-16] MEDS: ACYCLOVIR 200 MG CAPSULE PO SCH ×2 (09:36→21:09)
[2018-08-16] MEDS: FLUCONAZOLE 100 MG TABLET PO SCH (09:36)
[2018-08-16] MEDS: ALLOPURINOL 300 MG TABLET PO SCH (09:36)
[2018-08-16] MEDS: AMLODIPINE 5 MG TABLET PO SCH (09:37)
[2018-08-16] MEDS: SODIUM CHLORIDE FLUSH 10ML SYR IVF SCH ×2 (09:38→21:00)
[2018-08-16] MEDS: DOCUSATE 100 MG CAPSULE PO SCH (09:40)
[2018-08-16 14:00] VITALS: BP 124/63
[2018-08-16 19:15] VITALS: BP 147/82
[2018-08-16] MEDS: LEVOFLOXACIN 500 MG TABLET PO SCH (21:09)
[2018-08-17 01:44] VITALS: BP 158/78
[2018-08-17] MEDS: PANTOPROZOLE 40MG TABLET PO SCH (05:44)
[2018-08-17 06:09] LABS: MEAN CORPUSCULAR HEMOGLOBIN 32.2 pg (27.0-34.8); MEAN CORPUSCULAR HGB CONC 34.2 g/dL (32.4-35.8); MEAN CORPUSCULAR VOLUME 94.2 fL (80-100); RED BLOOD COUNT 2.47 x10^6/uL (3.82-5.3); RED CELL DISTRIBUTION WIDTH 21.8 % (9.6-15.2)
[2018-08-17 06:11] LABS: ALBUMIN 2.6 g/dL (3.4-5.0); ANION GAP 10 mmol/L (5-15); CALCIUM 7.5 mg/dL (8.5-10.1); CHLORIDE 107 mmol/L (98-107)
[2018-08-17 06:16] LABS: ALANINE AMINOTRANSFERASE 33 U/L (12-78); ALKALINE PHOSPHATASE 75 U/L (45-117); BILIRUBIN,TOTAL 0.7 mg/dL (0.2-1.0); CREATININE 0.52 mg/dL (0.55-1.02); TOTAL PROTEIN 5.4 g/dL (6.4-8.2)
[2018-08-17 06:18] LABS: MEAN PLATELET VOLUME 7.7 fL (7.4-10.4); PLATELET COUNT 28 x10^3/uL (130-400)
[2018-08-17 06:50] LABS: MD YES
[2018-08-17 06:57] VITALS: BP 144/81
[2018-08-17 07:26] LABS: <PLATELET ESTIMATE> DECREASED; <PLT MORPHOLOGY> NORMAL PLT MORPH; ANISOCYTOSIS 1+; LYMPH#(MANUAL) 0.19 x10^3/uL (1-3.4); LYMPHS% (MANUAL) 97 % (22-44); OVALOCYTES 1+; REACTIVE LYMPHS % (MANUAL) 2 % (0-0); SEGS% (MANUAL) 1 % (42-75); TEAR DROPS 1+
[2018-08-17 07:28] LABS: BASOPHILLIC STIPPLING 1+
[2018-08-17] MEDS: ANORO ELLIPTA IH SCH (09:00)
[2018-08-17] MEDS: DOCUSATE 100 MG CAPSULE PO SCH (09:05)
[2018-08-17] MEDS: ACYCLOVIR 200 MG CAPSULE PO SCH ×2 (09:05→21:01)
[2018-08-17] MEDS: AMLODIPINE 5 MG TABLET PO SCH (09:05)
[2018-08-17] MEDS: FLUCONAZOLE 100 MG TABLET PO SCH (09:05)
[2018-08-17] MEDS: SODIUM CHLORIDE FLUSH 10ML SYR IVF SCH ×2 (09:06→21:02)
[2018-08-17] MEDS: ALPRazolam 1MG TAB PO PRN ×2 (09:20→21:01)
[2018-08-17] MEDS: SODIUM CHLORIDE 0.9% 1,000 ML IV SCH ×2 (09:21→21:02)
[2018-08-17] MEDS ORDERED: MAGNESIUM SULFATE PMX 4GM/100M 100 ML IV ONE (10:30)
[2018-08-17 14:40] VITALS: BP 136/69
[2018-08-17 19:51] VITALS: BP 128/78
[2018-08-17] MEDS: LEVOFLOXACIN 500 MG TABLET PO SCH (21:02)
[2018-08-18] VITALS (8 sets, daily range): BP systolic 131–146; BP diastolic 73–84
[2018-08-18] MEDS: SODIUM CHLORIDE 0.9% 1,000 ML IV SCH ×2 (04:29→21:39)
[2018-08-18 05:34] LABS: ALBUMIN 2.5 g/dL (3.4-5.0); ANION GAP 9 mmol/L (5-15); CALCIUM 7.6 mg/dL (8.5-10.1); CHLORIDE 108 mmol/L (98-107)
[2018-08-18 05:39] LABS: ALANINE AMINOTRANSFERASE 28 U/L (12-78); ALKALINE PHOSPHATASE 68 U/L (45-117); BILIRUBIN,TOTAL 0.6 mg/dL (0.2-1.0); CREATININE 0.45 mg/dL (0.55-1.02); TOTAL PROTEIN 4.9 g/dL (6.4-8.2)
[2018-08-18 05:54] LABS: MEAN CORPUSCULAR HEMOGLOBIN 32.5 pg (27.0-34.8); MEAN CORPUSCULAR HGB CONC 34.6 g/dL (32.4-35.8); RED BLOOD COUNT 2.07 x10^6/uL (3.82-5.3)
[2018-08-18 06:39] LABS: MEAN PLATELET VOLUME 8.4 fL (7.4-10.4)
[2018-08-18 06:40] LABS: PLATELET COUNT 19 x10^3/uL (130-400)
[2018-08-18] MEDS: PANTOPROZOLE 40MG TABLET PO SCH (06:57)
[2018-08-18 06:58] LABS: MD YES
[2018-08-18 07:06] LABS: EOS% (MANUAL) 1 % (1-7); LYMPHS% (MANUAL) 96 % (22-44); MONOS% (MANUAL) 2 % (2-9); SEGS% (MANUAL) 1 % (42-75)
[2018-08-18 07:08] LABS: ANISOCYTOSIS 1+
[2018-08-18 07:09] LABS: <PLATELET ESTIMATE> DECREASED; <PLT MORPHOLOGY> NORMAL PLT MORPH; OVALOCYTES 1+
[2018-08-18] MEDS: ANORO ELLIPTA IH SCH (09:00)
[2018-08-18] MEDS: SODIUM CHLORIDE FLUSH 10ML SYR IVF SCH ×2 (09:00→21:39)
[2018-08-18] MEDS: DOCUSATE 100 MG CAPSULE PO SCH (09:00)
[2018-08-18] MEDS: AMLODIPINE 5 MG TABLET PO SCH (09:51)
[2018-08-18] MEDS: ACYCLOVIR 200 MG CAPSULE PO SCH ×2 (09:51→21:40)
[2018-08-18] MEDS: FLUCONAZOLE 100 MG TABLET PO SCH (09:52)
[2018-08-18] MEDS: LEVOFLOXACIN 500 MG TABLET PO SCH (21:40)
[2018-08-19 01:03] VITALS: BP 127/71
[2018-08-19] MEDS: PANTOPROZOLE 40MG TABLET PO SCH (05:59)
[2018-08-19 06:32] LABS: ALANINE AMINOTRANSFERASE 21 U/L (12-78); ALBUMIN 2.5 g/dL (3.4-5.0); ANION GAP 8 mmol/L (5-15); CALCIUM 7.5 mg/dL (8.5-10.1); CHLORIDE 110 mmol/L (98-107); CREATININE 0.43 mg/dL (0.55-1.02)
[2018-08-19 06:35] LABS: ALKALINE PHOSPHATASE 63 U/L (45-117); BILIRUBIN,TOTAL 0.7 mg/dL (0.2-1.0)
[2018-08-19 06:53] LABS: MEAN CORPUSCULAR HEMOGLOBIN 31.3 pg (27.0-34.8); MEAN CORPUSCULAR HGB CONC 33.8 g/dL (32.4-35.8); MEAN CORPUSCULAR VOLUME 92.4 fL (80-100); RED BLOOD COUNT 2.36 x10^6/uL (3.82-5.3); RED CELL DISTRIBUTION WIDTH 20.6 % (9.6-15.2)
[2018-08-19 06:54] LABS: MEAN PLATELET VOLUME 7.6 fL (7.4-10.4)
[2018-08-19 06:55] LABS: PLATELET COUNT 15 x10^3/uL (130-400)
[2018-08-19 07:19] LABS: MD YES
[2018-08-19 07:23] LABS: EOS#(MANUAL) 0.01 x10^3/uL (0.0-0.4); EOS% (MANUAL) 4 % (1-7); LYMPH#(MANUAL) 0.19 x10^3/uL (1-3.4); LYMPHS% (MANUAL) 96 % (22-44)
[2018-08-19 07:24] LABS: <PLATELET ESTIMATE> DECREASED; <PLT MORPHOLOGY> NORMAL PLT MORPH; ANISOCYTOSIS 1+; SEGS% (MANUAL) 0 % (42-75)
[2018-08-19 08:00] VITALS: BP 167/86
[2018-08-19] MEDS: ANORO ELLIPTA IH SCH (09:00)
[2018-08-19] MEDS: DOCUSATE 100 MG CAPSULE PO SCH ×2 (09:00→09:40)
[2018-08-19] MEDS: AMLODIPINE 5 MG TABLET PO SCH (09:40)
[2018-08-19] MEDS: SODIUM CHLORIDE FLUSH 10ML SYR IVF SCH ×2 (09:40→20:38)
[2018-08-19] MEDS: ACYCLOVIR 200 MG CAPSULE PO SCH ×2 (09:40→20:38)
[2018-08-19] MEDS: SODIUM CHLORIDE 0.9% 1,000 ML IV SCH (09:41)
[2018-08-19] MEDS: FLUCONAZOLE 100 MG TABLET PO SCH (09:41)
[2018-08-19] MEDS ORDERED: MAGNESIUM SULFATE PMX 2GM/50ML 50 ML IV ONE (11:00)
[2018-08-19] MEDS: ALPRazolam 1MG TAB PO PRN (13:27)
[2018-08-19 13:46] VITALS: BP 139/75
[2018-08-19 19:33] VITALS: BP 168/84
[2018-08-19] MEDS: LEVOFLOXACIN 500 MG TABLET PO SCH (20:38)
[2018-08-20] MEDS: SODIUM CHLORIDE 0.9% 1,000 ML IV SCH ×2 (02:17→15:16)
[2018-08-20 03:23] VITALS: BP 146/82
[2018-08-20] MEDS: PANTOPROZOLE 40MG TABLET PO SCH (05:24)
[2018-08-20 06:06] LABS: ALBUMIN 2.7 g/dL (3.4-5.0); ANION GAP 9 mmol/L (5-15); CALCIUM 7.7 mg/dL (8.5-10.1); CHLORIDE 109 mmol/L (98-107)
[2018-08-20 06:10] LABS: ALANINE AMINOTRANSFERASE 23 U/L (12-78); ALKALINE PHOSPHATASE 70 U/L (45-117); BILIRUBIN,TOTAL 0.5 mg/dL (0.2-1.0); CREATININE 0.46 mg/dL (0.55-1.02); TOTAL PROTEIN 5.2 g/dL (6.4-8.2)
[2018-08-20 06:43] LABS: MEAN CORPUSCULAR HEMOGLOBIN 31.3 pg (27.0-34.8); MEAN CORPUSCULAR HGB CONC 33.9 g/dL (32.4-35.8); MEAN CORPUSCULAR VOLUME 92.3 fL (80-100); RED BLOOD COUNT 2.23 x10^6/uL (3.82-5.3); RED CELL DISTRIBUTION WIDTH 19.8 % (9.6-15.2)
[2018-08-20 07:01] LABS: MD YES; MEAN PLATELET VOLUME 8.3 fL (7.4-10.4)
[2018-08-20 07:04] LABS: PLATELET COUNT 10 x10^3/uL (130-400)
[2018-08-20 07:13] LABS: EOS% (MANUAL) 1 % (1-7); LYMPHS% (MANUAL) 96 % (22-44); MONOS% (MANUAL) 2 % (2-9); SEGS% (MANUAL) 1 % (42-75)
[2018-08-20 07:14] LABS: ANISOCYTOSIS 1+
[2018-08-20 07:15] LABS: <PLATELET ESTIMATE> DECREASED; <PLT MORPHOLOGY> NORMAL PLT MORPH; OVALOCYTES 1+
[2018-08-20] MEDS: ANORO ELLIPTA IH SCH (08:51)
[2018-08-20] MEDS: ACYCLOVIR 200 MG CAPSULE PO SCH ×2 (08:52→21:35)
[2018-08-20] MEDS: DEXAMETHASONE 40 MG in SODIUM CHLORIDE 0.9% 50 ML IV SCH (08:52)
[2018-08-20] MEDS: AMLODIPINE 5 MG TABLET PO SCH (08:52)
[2018-08-20] MEDS: FLUCONAZOLE 100 MG TABLET PO SCH (08:52)
[2018-08-20] MEDS: DOCUSATE 100 MG CAPSULE PO SCH (08:52)
[2018-08-20] MEDS: SODIUM CHLORIDE FLUSH 10ML SYR IVF SCH ×2 (08:53→21:36)
[2018-08-20] MEDS ORDERED: methylPREDNISolone SOD SUCC 125 MG/2 ML IVPush PRN (10:00)
[2018-08-20] MEDS ORDERED: DIPHENHYDRAMINE 50 MG/ML, 1ML IVPush ONE (10:00)
[2018-08-20] MEDS ORDERED: ACETAMINOPHEN 325 MG TABLET PO ONE (10:00)
[2018-08-20] MEDS ORDERED: FAMOTIDINE 20 MG/2 ML IVPush ONE (10:00)
[2018-08-20 10:09] VITALS: BP 144/82
[2018-08-20] MEDS ORDERED: RITUXIMAB 700 MG in SODIUM CHLORIDE 0.9% 250 ML IV ONE (10:30)
[2018-08-20 13:49] VITALS: BP 154/80
[2018-08-20 20:19] VITALS: BP 135/73
[2018-08-20] MEDS ORDERED: MORPHINE SULFATE 4 MG/ML, 1ML IVPush PRN (21:30)
[2018-08-20] MEDS: ALPRazolam 1MG TAB PO PRN (21:35)
[2018-08-20] MEDS: LEVOFLOXACIN 500 MG TABLET PO SCH (21:35)
[2018-08-21] VITALS (9 sets, daily range): BP systolic 126–149; BP diastolic 69–81
[2018-08-21] MEDS: ONDANSETRON 2MG/ML, 2ML IVPush PRN (02:13)
[2018-08-21] MEDS: SODIUM CHLORIDE 0.9% 1,000 ML IV SCH ×2 (04:16→16:42)
[2018-08-21 05:02] LABS: MEAN CORPUSCULAR HEMOGLOBIN 31.8 pg (27.0-34.8); MEAN CORPUSCULAR HGB CONC 34.4 g/dL (32.4-35.8); MEAN CORPUSCULAR VOLUME 92.4 fL (80-100); MEAN PLATELET VOLUME 7.8 fL (7.4-10.4); RED BLOOD COUNT 2.06 x10^6/uL (3.82-5.3); RED CELL DISTRIBUTION WIDTH 18.8 % (9.6-15.2)
[2018-08-21] MEDS: PANTOPROZOLE 40MG TABLET PO SCH (05:49)
[2018-08-21] MEDS: FLUCONAZOLE 100 MG TABLET PO SCH (08:28)
[2018-08-21] MEDS: ACETAMINOPHEN 325 MG TABLET PO PRN (08:28)
[2018-08-21] MEDS: DIPHENHYDRAMINE 50 MG/ML, 1ML IVPush PRN (08:28)
[2018-08-21] MEDS: DEXAMETHASONE 40 MG in SODIUM CHLORIDE 0.9% 50 ML IV SCH (08:28)
[2018-08-21] MEDS: DOCUSATE 100 MG CAPSULE PO SCH (08:28)
[2018-08-21] MEDS: ACYCLOVIR 200 MG CAPSULE PO SCH ×2 (08:29→20:29)
[2018-08-21] MEDS: AMLODIPINE 5 MG TABLET PO SCH (08:29)
[2018-08-21] MEDS: SODIUM CHLORIDE FLUSH 10ML SYR IVF SCH ×2 (08:29→20:29)
[2018-08-21] MEDS: ANORO ELLIPTA IH SCH (08:29)
[2018-08-21] MEDS: LEVOFLOXACIN 500 MG TABLET PO SCH (20:29)
[2018-08-22 01:42] VITALS: BP 151/75
[2018-08-22] MEDS: PANTOPROZOLE 40MG TABLET PO SCH (05:45)
[2018-08-22] MEDS: SODIUM CHLORIDE 0.9% 1,000 ML IV SCH ×3 (05:46→22:20)
[2018-08-22 06:30] LABS: ALANINE AMINOTRANSFERASE 26 U/L (12-78); ALBUMIN 2.9 g/dL (3.4-5.0); ANION GAP 10 mmol/L (5-15); CALCIUM 8.3 mg/dL (8.5-10.1); CHLORIDE 107 mmol/L (98-107); CREATININE 0.53 mg/dL (0.55-1.02)
[2018-08-22 06:37] LABS: ALKALINE PHOSPHATASE 66 U/L (45-117); BILIRUBIN,TOTAL 0.9 mg/dL (0.2-1.0); TOTAL PROTEIN 5.6 g/dL (6.4-8.2)
[2018-08-22 07:08] LABS: MD YES; MEAN CORPUSCULAR HEMOGLOBIN 32.1 pg (27.0-34.8); MEAN CORPUSCULAR HGB CONC 34.6 g/dL (32.4-35.8); MEAN PLATELET VOLUME 7.6 fL (7.4-10.4); RED BLOOD COUNT 2.47 x10^6/uL (3.82-5.3); RED CELL DISTRIBUTION WIDTH 17.1 % (9.6-15.2)
[2018-08-22 08:14] LABS: PLATELET COUNT 24 x10^3/uL (130-400)
[2018-08-22 08:18] LABS: <PLATELET ESTIMATE> DECREASED; ANISOCYTOSIS 1+; LYMPH#(MANUAL) 0.18 x10^3/uL (1-3.4); LYMPHS% (MANUAL) 90 % (22-44); MONOS#(MANUAL) 0.02 x10^3/uL (0.3-2.7); MONOS% (MANUAL) 10 % (2-9); SEGS% (MANUAL) 0 % (42-75)
[2018-08-22 08:19] LABS: <PLT MORPHOLOGY> QNS FOR PLT MORPH
[2018-08-22] MEDS: SODIUM CHLORIDE FLUSH 10ML SYR IVF SCH ×2 (09:44→20:48)
[2018-08-22] MEDS: DEXAMETHASONE 40 MG in SODIUM CHLORIDE 0.9% 50 ML IV SCH (09:54)
[2018-08-22] MEDS: ANORO ELLIPTA IH SCH (09:54)
[2018-08-22] MEDS: DOCUSATE 100 MG CAPSULE PO SCH (09:54)
[2018-08-22] MEDS: FLUCONAZOLE 100 MG TABLET PO SCH (09:55)
[2018-08-22] MEDS: ACYCLOVIR 200 MG CAPSULE PO SCH ×2 (09:55→20:44)
[2018-08-22] MEDS: AMLODIPINE 5 MG TABLET PO SCH (09:55)
[2018-08-22] MEDS: ACETAMINOPHEN 325 MG TABLET PO PRN (13:55)
[2018-08-22 14:55] VITALS: BP 143/71
[2018-08-22] MEDS: POTASSIUM CHLORIDE 20 MEQ PACKET PO SCH (17:43)
[2018-08-22] MEDS: ALPRazolam 1MG TAB PO PRN (20:44)
[2018-08-22] MEDS: LEVOFLOXACIN 500 MG TABLET PO SCH (20:44)
[2018-08-22 21:00] VITALS: BP 134/71
[2018-08-23 05:26] VITALS: BP 135/70
[2018-08-23] MEDS: PANTOPROZOLE 40MG TABLET PO SCH (05:26)
[2018-08-23 06:08] LABS: ALANINE AMINOTRANSFERASE 30 U/L (12-78); ALBUMIN 2.8 g/dL (3.4-5.0); ANION GAP 10 mmol/L (5-15); CHLORIDE 110 mmol/L (98-107); CREATININE 0.47 mg/dL (0.55-1.02)
[2018-08-23 06:10] LABS: ALKALINE PHOSPHATASE 62 U/L (45-117); BILIRUBIN,TOTAL 0.4 mg/dL (0.2-1.0); TOTAL PROTEIN 5.5 g/dL (6.4-8.2)
[2018-08-23 06:29] LABS: MEAN CORPUSCULAR HEMOGLOBIN 31.4 pg (27.0-34.8); MEAN CORPUSCULAR HGB CONC 33.9 g/dL (32.4-35.8); MEAN CORPUSCULAR VOLUME 92.7 fL (80-100); MEAN PLATELET VOLUME 8.4 fL (7.4-10.4); RED BLOOD COUNT 2.35 x10^6/uL (3.82-5.3); RED CELL DISTRIBUTION WIDTH 16.9 % (9.6-15.2)
[2018-08-23 06:30] LABS: PLATELET COUNT 14 x10^3/uL (130-400)
[2018-08-23 06:43] LABS: MD YES
[2018-08-23 06:51] LABS: LYMPH#(MANUAL) 0.09 x10^3/uL (1-3.4); LYMPHS% (MANUAL) 92 % (22-44); MONOS% (MANUAL) 4 % (2-9); SEGS% (MANUAL) 4 % (42-75)
[2018-08-23 06:54] LABS: <PLATELET ESTIMATE> DECREASED; <PLT MORPHOLOGY> NORMAL PLT MORPH; ANISOCYTOSIS 1+
[2018-08-23 08:08] VITALS: BP 130/82
[2018-08-23] MEDS: ANORO ELLIPTA IH SCH (09:00)
[2018-08-23] MEDS: SODIUM CHLORIDE FLUSH 10ML SYR IVF SCH ×2 (09:00→20:45)
[2018-08-23] MEDS: DEXAMETHASONE 40 MG in SODIUM CHLORIDE 0.9% 50 ML IV SCH (10:28)
[2018-08-23] MEDS: POTASSIUM CHLORIDE 20 MEQ PACKET PO SCH ×2 (10:28→18:09)
[2018-08-23] MEDS: ACYCLOVIR 200 MG CAPSULE PO SCH ×2 (10:28→20:46)
[2018-08-23] MEDS: FLUCONAZOLE 100 MG TABLET PO SCH (10:29)
[2018-08-23] MEDS: AMLODIPINE 5 MG TABLET PO SCH (10:29)
[2018-08-23] MEDS: DOCUSATE 100 MG CAPSULE PO SCH (10:29)
[2018-08-23] MEDS: SODIUM CHLORIDE 0.9% 1,000 ML IV SCH ×2 (10:30→22:49)
[2018-08-23 12:46] VITALS: BP 151/81
[2018-08-23 20:39] VITALS: BP 151/77
[2018-08-23] MEDS: LEVOFLOXACIN 500 MG TABLET PO SCH (20:46)
[2018-08-24] VITALS (7 sets, daily range): BP systolic 125–169; BP diastolic 68–93
[2018-08-24 05:45] LABS: CHLORIDE 109 mmol/L (98-107)
[2018-08-24 05:55] LABS: ALANINE AMINOTRANSFERASE 36 U/L (12-78); ALKALINE PHOSPHATASE 67 U/L (45-117); ANION GAP 9 mmol/L (5-15); BILIRUBIN,TOTAL 0.4 mg/dL (0.2-1.0); CALCIUM 7.8 mg/dL (8.5-10.1); CREATININE 0.51 mg/dL (0.55-1.02); TOTAL PROTEIN 5.4 g/dL (6.4-8.2)
[2018-08-24] MEDS: PANTOPROZOLE 40MG TABLET PO SCH (06:30)
[2018-08-24 06:40] LABS: MEAN CORPUSCULAR VOLUME 94.1 fL (80-100); MEAN PLATELET VOLUME 8.4 fL (7.4-10.4); RED BLOOD COUNT 2.32 x10^6/uL (3.82-5.3); RED CELL DISTRIBUTION WIDTH 16.8 % (9.6-15.2)
[2018-08-24 06:41] LABS: PLATELET COUNT 9 x10^3/uL (130-400)
[2018-08-24 06:42] LABS: MD YES
[2018-08-24 06:49] LABS: LYMPH#(MANUAL) 0.09 x10^3/uL (1-3.4); LYMPHS% (MANUAL) 88 % (22-44); REACTIVE LYMPHS # (MANUAL) 0.01 x10^3/uL (0-0); REACTIVE LYMPHS % (MANUAL) 8 % (0-0); SEGS% (MANUAL) 4 % (42-75)
[2018-08-24 06:51] LABS: <PLATELET ESTIMATE> DECREASED; <PLT MORPHOLOGY> NORMAL PLT MORPH; ANISOCYTOSIS 1+
[2018-08-24] MEDS: POTASSIUM CHLORIDE 20 MEQ PACKET PO SCH ×2 (08:48→17:55)
[2018-08-24] MEDS: ACYCLOVIR 200 MG CAPSULE PO SCH ×2 (08:49→19:49)
[2018-08-24] MEDS: DOCUSATE 100 MG CAPSULE PO SCH (08:50)
[2018-08-24] MEDS: AMLODIPINE 5 MG TABLET PO SCH (08:50)
[2018-08-24] MEDS: SODIUM CHLORIDE FLUSH 10ML SYR IVF SCH ×2 (08:50→19:49)
[2018-08-24] MEDS: FLUCONAZOLE 100 MG TABLET PO SCH (08:50)
[2018-08-24] MEDS: ANORO ELLIPTA IH SCH (08:51)
[2018-08-24] MEDS: CYCLOBENZAPRINE 10 MG TABLET PO PRN (09:04)
[2018-08-24] MEDS: DIPHENHYDRAMINE 50 MG/ML, 1ML IVPush PRN (11:33)
[2018-08-24] MEDS: ACETAMINOPHEN 325 MG TABLET PO PRN (11:33)
[2018-08-24] MEDS: ONDANSETRON 2MG/ML, 2ML IVPush PRN (11:40)
[2018-08-24] MEDS: SODIUM CHLORIDE 0.9% 1,000 ML IV SCH (15:47)
[2018-08-24] MEDS: LEVOFLOXACIN 500 MG TABLET PO SCH (19:49)
[2018-08-24] MEDS: ALPRazolam 1MG TAB PO PRN (21:59)
[2018-08-25] MEDS: SODIUM CHLORIDE 0.9% 1,000 ML IV SCH ×2 (04:46→16:59)
[2018-08-25 04:47] LABS: ALANINE AMINOTRANSFERASE 34 U/L (12-78); ALBUMIN 2.9 g/dL (3.4-5.0); ANION GAP 6 mmol/L (5-15); CALCIUM 7.8 mg/dL (8.5-10.1); CHLORIDE 110 mmol/L (98-107); CREATININE 0.46 mg/dL (0.55-1.02)
[2018-08-25 04:49] LABS: ALKALINE PHOSPHATASE 61 U/L (45-117); BILIRUBIN,TOTAL 0.4 mg/dL (0.2-1.0); TOTAL PROTEIN 5.1 g/dL (6.4-8.2)
[2018-08-25 05:07] VITALS: BP 126/76
[2018-08-25 06:07] LABS: MEAN CORPUSCULAR HEMOGLOBIN 31.9 pg (27.0-34.8); MEAN CORPUSCULAR HGB CONC 34.2 g/dL (32.4-35.8); MEAN CORPUSCULAR VOLUME 93.1 fL (80-100); MEAN PLATELET VOLUME 8.3 fL (7.4-10.4); RED BLOOD COUNT 2.28 x10^6/uL (3.82-5.3); RED CELL DISTRIBUTION WIDTH 16.5 % (9.6-15.2)
[2018-08-25 06:08] LABS: MD YES; PLATELET COUNT 23 x10^3/uL (130-400)
[2018-08-25 06:12] LABS: LYMPHS% (MANUAL) 98 % (22-44); REACTIVE LYMPHS % (MANUAL) 2 % (0-0)
[2018-08-25 06:14] LABS: <PLATELET ESTIMATE> DECREASED; <PLT MORPHOLOGY> NORMAL PLT MORPH; ANISOCYTOSIS 1+
[2018-08-25] MEDS: PANTOPROZOLE 40MG TABLET PO SCH (06:20)
[2018-08-25 08:02] VITALS: BP 144/73
[2018-08-25] MEDS: DOCUSATE 100 MG CAPSULE PO SCH (08:31)
[2018-08-25] MEDS: POTASSIUM CHLORIDE 20 MEQ PACKET PO SCH ×2 (08:49→17:01)
[2018-08-25] MEDS: ANORO ELLIPTA IH SCH (08:49)
[2018-08-25] MEDS: FLUCONAZOLE 100 MG TABLET PO SCH (08:50)
[2018-08-25] MEDS: ACYCLOVIR 200 MG CAPSULE PO SCH ×2 (08:50→21:51)
[2018-08-25] MEDS: SODIUM CHLORIDE FLUSH 10ML SYR IVF SCH ×2 (08:50→21:51)
[2018-08-25] MEDS: AMLODIPINE 5 MG TABLET PO SCH (08:51)
[2018-08-25] MEDS: CYCLOBENZAPRINE 10 MG TABLET PO PRN (09:11)
[2018-08-25 12:07] VITALS: BP 123/71
[2018-08-25 20:56] VITALS: BP 122/71
[2018-08-25] MEDS: LEVOFLOXACIN 500 MG TABLET PO SCH (21:51)
[2018-08-26 03:50] VITALS: BP 143/74
[2018-08-26 05:58] LABS: MEAN CORPUSCULAR HEMOGLOBIN 32.2 pg (27.0-34.8); MEAN CORPUSCULAR VOLUME 94.6 fL (80-100); RED BLOOD COUNT 2.27 x10^6/uL (3.82-5.3); RED CELL DISTRIBUTION WIDTH 16.9 % (9.6-15.2)
[2018-08-26 06:01] LABS: ALANINE AMINOTRANSFERASE 30 U/L (12-78); ALBUMIN 2.6 g/dL (3.4-5.0); ANION GAP 7 mmol/L (5-15); CALCIUM 7.8 mg/dL (8.5-10.1); CHLORIDE 108 mmol/L (98-107)
[2018-08-26] MEDS: SODIUM CHLORIDE 0.9% 1,000 ML IV SCH ×2 (06:03→21:02)
[2018-08-26] MEDS: PANTOPROZOLE 40MG TABLET PO SCH (06:03)
[2018-08-26 06:07] LABS: ALKALINE PHOSPHATASE 64 U/L (45-117); BILIRUBIN,TOTAL 0.4 mg/dL (0.2-1.0); CREATININE 0.47 mg/dL (0.55-1.02); TOTAL PROTEIN 5.1 g/dL (6.4-8.2)
[2018-08-26 06:18] LABS: MEAN PLATELET VOLUME 8.1 fL (7.4-10.4)
[2018-08-26 06:20] LABS: PLATELET COUNT 15 x10^3/uL (130-400)
[2018-08-26 06:53] LABS: MD YES
[2018-08-26 06:55] LABS: LYMPHS% (MANUAL) 100 % (22-44); SEGS% (MANUAL) 0 % (42-75)
[2018-08-26 07:06] LABS: <PLATELET ESTIMATE> DECREASED; ANISOCYTOSIS 1+
[2018-08-26 07:07] LABS: <PLT MORPHOLOGY> NORMAL PLT MORPH
[2018-08-26] MEDS: POTASSIUM CHLORIDE 20 MEQ PACKET PO SCH ×2 (08:48→16:50)
[2018-08-26] MEDS: AMLODIPINE 5 MG TABLET PO SCH (08:48)
[2018-08-26] MEDS: ACYCLOVIR 200 MG CAPSULE PO SCH ×2 (08:48→21:01)
[2018-08-26] MEDS: FLUCONAZOLE 100 MG TABLET PO SCH (08:48)
[2018-08-26] MEDS: DOCUSATE 100 MG CAPSULE PO SCH (08:48)
[2018-08-26] MEDS: SODIUM CHLORIDE FLUSH 10ML SYR IVF SCH ×2 (08:49→21:02)
[2018-08-26] MEDS: ANORO ELLIPTA IH SCH (08:49)
[2018-08-26 09:00] VITALS: BP 133/70
[2018-08-26 13:51] VITALS: BP 146/79
[2018-08-26] MEDS: ONDANSETRON 2MG/ML, 2ML IVPush PRN (15:12)
[2018-08-26] MEDS: LEVOFLOXACIN 500 MG TABLET PO SCH (21:01)
[2018-08-26 21:39] VITALS: BP 124/70
[2018-08-27 03:41] VITALS: BP 132/68
[2018-08-27] MEDS: PANTOPROZOLE 40MG TABLET PO SCH (06:00)
[2018-08-27 06:38] LABS: ALANINE AMINOTRANSFERASE 28 U/L (12-78); ALBUMIN 2.7 g/dL (3.4-5.0); ANION GAP 6 mmol/L (5-15); CALCIUM 7.9 mg/dL (8.5-10.1); CHLORIDE 108 mmol/L (98-107); CREATININE 0.44 mg/dL (0.55-1.02)
[2018-08-27 06:41] LABS: ALKALINE PHOSPHATASE 60 U/L (45-117); BILIRUBIN,TOTAL 0.5 mg/dL (0.2-1.0); TOTAL PROTEIN 5.3 g/dL (6.4-8.2)
[2018-08-27 06:52] LABS: MEAN CORPUSCULAR HGB CONC 33.9 g/dL (32.4-35.8); MEAN CORPUSCULAR VOLUME 94.4 fL (80-100); PLATELET COUNT 14 x10^3/uL (130-400); RED BLOOD COUNT 2.19 x10^6/uL (3.82-5.3); RED CELL DISTRIBUTION WIDTH 16.8 % (9.6-15.2)
[2018-08-27 08:30] VITALS: BP 125/67
[2018-08-27] MEDS: SODIUM CHLORIDE FLUSH 10ML SYR IVF SCH ×2 (08:47→19:27)
[2018-08-27] MEDS: SODIUM CHLORIDE 0.9% 1,000 ML IV SCH ×2 (08:47→22:14)
[2018-08-27] MEDS: FLUCONAZOLE 100 MG TABLET PO SCH (08:48)
[2018-08-27] MEDS: ACYCLOVIR 200 MG CAPSULE PO SCH ×2 (08:48→21:02)
[2018-08-27] MEDS: AMLODIPINE 5 MG TABLET PO SCH (08:48)
[2018-08-27] MEDS: DOCUSATE 100 MG CAPSULE PO SCH (08:48)
[2018-08-27] MEDS: POTASSIUM CHLORIDE 20 MEQ PACKET PO SCH ×2 (08:48→16:40)
[2018-08-27] MEDS: ANORO ELLIPTA IH SCH (08:49)
[2018-08-27 13:25] VITALS: BP 130/71
[2018-08-27 21:00] VITALS: BP 138/77
[2018-08-27] MEDS: LEVOFLOXACIN 500 MG TABLET PO SCH (21:05)
[2018-08-27] MEDS: ALPRazolam 1MG TAB PO PRN (23:46)
[2018-08-28] VITALS (7 sets, daily range): BP systolic 117–152; BP diastolic 66–81
[2018-08-28] MEDS: PANTOPROZOLE 40MG TABLET PO SCH (05:47)
[2018-08-28 06:13] LABS: ALBUMIN 2.6 g/dL (3.4-5.0); ANION GAP 8 mmol/L (5-15); CALCIUM 7.9 mg/dL (8.5-10.1); CHLORIDE 107 mmol/L (98-107)
[2018-08-28 06:17] LABS: ALANINE AMINOTRANSFERASE 27 U/L (12-78); ALKALINE PHOSPHATASE 54 U/L (45-117); BILIRUBIN,TOTAL 0.8 mg/dL (0.2-1.0); CREATININE 0.39 mg/dL (0.55-1.02); TOTAL PROTEIN 5.3 g/dL (6.4-8.2)
[2018-08-28 06:19] LABS: MEAN CORPUSCULAR HEMOGLOBIN 32.1 pg (27.0-34.8); MEAN CORPUSCULAR HGB CONC 34.3 g/dL (32.4-35.8); MEAN CORPUSCULAR VOLUME 93.5 fL (80-100); MEAN PLATELET VOLUME 8.5 fL (7.4-10.4); RED BLOOD COUNT 2.01 x10^6/uL (3.82-5.3); RED CELL DISTRIBUTION WIDTH 16.9 % (9.6-15.2)
[2018-08-28 06:21] LABS: PLATELET COUNT 17 x10^3/uL (130-400)
[2018-08-28] MEDS ORDERED: ACETAMINOPHEN 325 MG TABLET PO ONE (06:30)
[2018-08-28] MEDS ORDERED: DIPHENHYDRAMINE 25 MG CAPSULE PO ONE (06:30)
[2018-08-28 06:58] LABS: MD YES
[2018-08-28 07:01] LABS: LYMPH#(MANUAL) 0.07 x10^3/uL (1-3.4); LYMPHS% (MANUAL) 68 % (22-44); SEG#(MANUAL) 0.03 x10^3/uL (1.8-6.8); SEGS% (MANUAL) 32 % (42-75)
[2018-08-28 07:02] LABS: ANISOCYTOSIS 1+; POLYCHROMASIA 1+
[2018-08-28 07:03] LABS: <PLATELET ESTIMATE> DECREASED; <PLT MORPHOLOGY> NORMAL PLT MORPH
[2018-08-28] MEDS: ANORO ELLIPTA IH SCH (09:00)
[2018-08-28] MEDS: DIPHENHYDRAMINE 50 MG/ML, 1ML IVPush PRN (11:23)
[2018-08-28] MEDS: POTASSIUM CHLORIDE 20 MEQ PACKET PO SCH ×2 (11:24→17:44)
[2018-08-28] MEDS: FLUCONAZOLE 100 MG TABLET PO SCH (11:24)
[2018-08-28] MEDS: AMLODIPINE 5 MG TABLET PO SCH (11:24)
[2018-08-28] MEDS: ACYCLOVIR 200 MG CAPSULE PO SCH ×2 (11:24→21:16)
[2018-08-28] MEDS: SODIUM CHLORIDE FLUSH 10ML SYR IVF SCH ×2 (11:26→21:16)
[2018-08-28] MEDS: DOCUSATE 100 MG CAPSULE PO SCH (11:26)
[2018-08-28] MEDS: SODIUM CHLORIDE 0.9% 1,000 ML IV SCH (12:36)
[2018-08-28] MEDS: ONDANSETRON 2MG/ML, 2ML IVPush PRN (14:35)
[2018-08-28] MEDS: LEVOFLOXACIN 500 MG TABLET PO SCH (21:16)
[2018-08-29 00:27] VITALS: BP 145/77
[2018-08-29] MEDS: SODIUM CHLORIDE 0.9% 1,000 ML IV SCH ×2 (00:56→13:10)
[2018-08-29 05:55] LABS: ALBUMIN 2.7 g/dL (3.4-5.0); ANION GAP 6 mmol/L (5-15); CHLORIDE 106 mmol/L (98-107)
[2018-08-29 05:58] LABS: MEAN CORPUSCULAR HEMOGLOBIN 31.6 pg (27.0-34.8); MEAN CORPUSCULAR HGB CONC 34.6 g/dL (32.4-35.8); MEAN CORPUSCULAR VOLUME 91.5 fL (80-100); MEAN PLATELET VOLUME 7.8 fL (7.4-10.4); RED BLOOD COUNT 2.37 x10^6/uL (3.82-5.3)
[2018-08-29 06:00] LABS: ALANINE AMINOTRANSFERASE 29 U/L (12-78); ALKALINE PHOSPHATASE 66 U/L (45-117); BILIRUBIN,TOTAL 0.6 mg/dL (0.2-1.0); CREATININE 0.41 mg/dL (0.55-1.02); TOTAL PROTEIN 5.5 g/dL (6.4-8.2)
[2018-08-29 06:12] LABS: PLATELET COUNT 22 x10^3/uL (130-400)
[2018-08-29] MEDS: PANTOPROZOLE 40MG TABLET PO SCH (06:20)
[2018-08-29 07:41] VITALS: BP 144/81
[2018-08-29] MEDS: ANORO ELLIPTA IH SCH (09:12)
[2018-08-29] MEDS: SODIUM CHLORIDE FLUSH 10ML SYR IVF SCH ×2 (09:13→21:24)
[2018-08-29] MEDS: DOCUSATE 100 MG CAPSULE PO SCH (09:15)
[2018-08-29] MEDS: ACYCLOVIR 200 MG CAPSULE PO SCH ×2 (09:15→21:24)
[2018-08-29] MEDS: FLUCONAZOLE 100 MG TABLET PO SCH (09:16)
[2018-08-29] MEDS: POTASSIUM CHLORIDE 20 MEQ PACKET PO SCH ×2 (09:16→17:22)
[2018-08-29] MEDS: AMLODIPINE 5 MG TABLET PO SCH (09:16)
[2018-08-29 09:25] LABS: MD YES
[2018-08-29 09:30] LABS: BANDS%(MANUAL) 1 % (0-7); LYMPHS% (MANUAL) 50 % (22-44); MONOS#(MANUAL) 0.01 x10^3/uL (0.3-2.7); SEG#(MANUAL) 0.09 x10^3/uL (1.8-6.8)
[2018-08-29] MEDS ORDERED: MAGNESIUM HYDROXIDE 8%, 30ML UDC PO PRN (09:30)
[2018-08-29 09:31] LABS: <PLATELET ESTIMATE> DECREASED; MONOS% (MANUAL) 5 % (2-9); SEGS% (MANUAL) 44 % (42-75)
[2018-08-29 09:37] LABS: <PLT MORPHOLOGY> NORMAL PLT MORPH; ANISOCYTOSIS 1+
[2018-08-29 13:52] VITALS: BP 140/78
[2018-08-29] MEDS ORDERED: BISACODYL 10 MG SUPP PR PRN (17:00)
[2018-08-29] MEDS ORDERED: POLYETHYLENE GLYCOL 17 GM PACKET PO PRN (17:00)
[2018-08-29] MEDS ORDERED: DOCUSATE 100 MG CAPSULE PO PRN (17:00)
[2018-08-29 20:13] VITALS: BP 108/69
[2018-08-29] MEDS: LACTULOSE 10 GM/15 ML UDC PO SCH (21:24)
[2018-08-29] MEDS: LEVOFLOXACIN 500 MG TABLET PO SCH (21:28)
[2018-08-30] MEDS: ALPRazolam 1MG TAB PO PRN (00:59)
[2018-08-30 02:30] VITALS: BP 138/77
[2018-08-30] MEDS: SODIUM CHLORIDE 0.9% 1,000 ML IV SCH ×3 (04:20→18:49)
[2018-08-30 04:52] LABS: ALBUMIN 2.7 g/dL (3.4-5.0); ANION GAP 7 mmol/L (5-15); CALCIUM 8.4 mg/dL (8.5-10.1); CHLORIDE 106 mmol/L (98-107)
[2018-08-30 04:57] LABS: ALANINE AMINOTRANSFERASE 30 U/L (12-78); ALKALINE PHOSPHATASE 64 U/L (45-117); BILIRUBIN,TOTAL 0.6 mg/dL (0.2-1.0); TOTAL PROTEIN 5.8 g/dL (6.4-8.2)
[2018-08-30 05:44] LABS: MEAN CORPUSCULAR HEMOGLOBIN 31.7 pg (27.0-34.8); MEAN CORPUSCULAR HGB CONC 34.3 g/dL (32.4-35.8); MEAN CORPUSCULAR VOLUME 92.5 fL (80-100); MEAN PLATELET VOLUME 8.2 fL (7.4-10.4); RED BLOOD COUNT 2.45 x10^6/uL (3.82-5.3); RED CELL DISTRIBUTION WIDTH 16.2 % (9.6-15.2)
[2018-08-30 05:45] LABS: PLATELET COUNT 29 x10^3/uL (130-400)
[2018-08-30 05:50] LABS: MD YES
[2018-08-30 05:55] LABS: ANISOCYTOSIS 1+; BANDS%(MANUAL) 1 % (0-7); LYMPH#(MANUAL) 0.14 x10^3/uL (1-3.4); LYMPHS% (MANUAL) 47 % (22-44); MONOS#(MANUAL) 0.01 x10^3/uL (0.3-2.7); MONOS% (MANUAL) 4 % (2-9); SEG#(MANUAL) 0.14 x10^3/uL (1.8-6.8); SEGS% (MANUAL) 48 % (42-75)
[2018-08-30] MEDS: PANTOPROZOLE 40MG TABLET PO SCH (05:55)
[2018-08-30 05:56] LABS: <PLATELET ESTIMATE> DECREASED; <PLT MORPHOLOGY> NORMAL PLT MORPH
[2018-08-30 08:03] VITALS: BP 124/73
[2018-08-30] MEDS: ANORO ELLIPTA IH SCH (09:00)
[2018-08-30] MEDS: POTASSIUM CHLORIDE 20 MEQ PACKET PO SCH ×2 (10:30→18:48)
[2018-08-30] MEDS: FLUCONAZOLE 100 MG TABLET PO SCH (10:31)
[2018-08-30] MEDS: DOCUSATE 100 MG CAPSULE PO SCH ×2 (10:31→11:44)
[2018-08-30] MEDS: ACYCLOVIR 200 MG CAPSULE PO SCH ×2 (10:31→21:19)
[2018-08-30] MEDS: AMLODIPINE 5 MG TABLET PO SCH (10:31)
[2018-08-30] MEDS: TBO-FILGRASTIM 480 MCG/0.8 ML SQ SCH (11:05)
[2018-08-30] MEDS: LACTULOSE 10 GM/15 ML UDC PO SCH ×2 (11:11→21:18)
[2018-08-30] MEDS: SODIUM CHLORIDE FLUSH 10ML SYR IVF SCH ×2 (11:45→21:19)
[2018-08-30 18:44] VITALS: BP 125/76
[2018-08-30] MEDS: LEVOFLOXACIN 500 MG TABLET PO SCH (21:18)
[2018-08-31 01:43] VITALS: BP 120/76
[2018-08-31 05:46] LABS: ALANINE AMINOTRANSFERASE 30 U/L (12-78); ALBUMIN 2.6 g/dL (3.4-5.0); ANION GAP 8 mmol/L (5-15); CALCIUM 7.9 mg/dL (8.5-10.1); CHLORIDE 107 mmol/L (98-107); CREATININE 0.43 mg/dL (0.55-1.02)
[2018-08-31 05:48] LABS: ALKALINE PHOSPHATASE 68 U/L (45-117); BILIRUBIN,TOTAL 0.6 mg/dL (0.2-1.0); MEAN CORPUSCULAR HEMOGLOBIN 31.6 pg (27.0-34.8); MEAN CORPUSCULAR HGB CONC 33.8 g/dL (32.4-35.8); MEAN CORPUSCULAR VOLUME 93.4 fL (80-100); MEAN PLATELET VOLUME 7.7 fL (7.4-10.4); RED BLOOD COUNT 2.36 x10^6/uL (3.82-5.3); RED CELL DISTRIBUTION WIDTH 15.4 % (9.6-15.2); TOTAL PROTEIN 5.5 g/dL (6.4-8.2)
[2018-08-31 05:50] LABS: PLATELET COUNT 37 x10^3/uL (130-400)
[2018-08-31 06:12] LABS: MD YES
[2018-08-31] MEDS: PANTOPROZOLE 40MG TABLET PO SCH (06:14)
[2018-08-31 06:19] LABS: BAND#(MANUAL) 0.06 x10^3/uL; BANDS%(MANUAL) 7 % (0-7); LYMPH#(MANUAL) 0.04 x10^3/uL (1-3.4); LYMPHS% (MANUAL) 4 % (22-44); MONOS#(MANUAL) 0.02 x10^3/uL (0.3-2.7); MONOS% (MANUAL) 2 % (2-9); SEG#(MANUAL) 0.78 x10^3/uL (1.8-6.8); SEGS% (MANUAL) 87 % (42-75)
[2018-08-31 06:20] LABS: <PLATELET ESTIMATE> DECREASED; <PLT MORPHOLOGY> NORMAL PLT MORPH; ANISOCYTOSIS 1+
[2018-08-31 08:06] VITALS: BP 124/79
[2018-08-31] MEDS: ANORO ELLIPTA IH SCH (09:00)
[2018-08-31] MEDS: LACTULOSE 10 GM/15 ML UDC PO SCH ×2 (09:57→21:10)
[2018-08-31] MEDS: FLUCONAZOLE 100 MG TABLET PO SCH (09:57)
[2018-08-31] MEDS: AMLODIPINE 5 MG TABLET PO SCH (09:57)
[2018-08-31] MEDS: TBO-FILGRASTIM 480 MCG/0.8 ML SQ SCH (09:58)
[2018-08-31] MEDS: ACYCLOVIR 200 MG CAPSULE PO SCH ×2 (10:06→21:11)
[2018-08-31] MEDS: POTASSIUM CHLORIDE 20 MEQ PACKET PO SCH ×2 (10:10→16:48)
[2018-08-31] MEDS: SODIUM CHLORIDE FLUSH 10ML SYR IVF SCH ×2 (10:13→21:00)
[2018-08-31 13:23] VITALS: BP 108/68
[2018-08-31 20:13] VITALS: BP 105/67
[2018-08-31] MEDS: LEVOFLOXACIN 500 MG TABLET PO SCH (21:11)
[2018-08-31] MEDS: ONDANSETRON 2MG/ML, 2ML IVPush PRN (21:26)
[2018-09-01] MEDS: SODIUM CHLORIDE 0.9% 1,000 ML IV SCH ×2 (01:56→14:23)
[2018-09-01 02:01] VITALS: BP 132/73
[2018-09-01 03:50] LABS: MEAN CORPUSCULAR HEMOGLOBIN 31.6 pg (27.0-34.8); MEAN CORPUSCULAR HGB CONC 33.7 g/dL (32.4-35.8); MEAN CORPUSCULAR VOLUME 93.7 fL (80-100); MEAN PLATELET VOLUME 7.8 fL (7.4-10.4); RED BLOOD COUNT 2.31 x10^6/uL (3.82-5.3); RED CELL DISTRIBUTION WIDTH 15.8 % (9.6-15.2)
[2018-09-01 03:52] LABS: PLATELET COUNT 40 x10^3/uL (130-400)
[2018-09-01 03:56] LABS: MD YES
[2018-09-01 03:59] LABS: <PLATELET ESTIMATE> DECREASED; <PLT MORPHOLOGY> NORMAL PLT MORPH; ANISOCYTOSIS 1+; BAND#(MANUAL) 0.04 x10^3/uL; BANDS%(MANUAL) 4 % (0-7); LYMPH#(MANUAL) 0.07 x10^3/uL (1-3.4); LYMPHS% (MANUAL) 7 % (22-44); MONOS#(MANUAL) 0.01 x10^3/uL (0.3-2.7); MONOS% (MANUAL) 1 % (2-9); SEG#(MANUAL) 0.88 x10^3/uL (1.8-6.8); SEGS% (MANUAL) 88 % (42-75)
[2018-09-01 04:21] LABS: ALANINE AMINOTRANSFERASE 30 U/L (12-78); ALBUMIN 2.8 g/dL (3.4-5.0); ANION GAP 8 mmol/L (5-15); CALCIUM 7.9 mg/dL (8.5-10.1); CHLORIDE 109 mmol/L (98-107); CREATININE 0.48 mg/dL (0.55-1.02)
[2018-09-01 04:23] LABS: ALKALINE PHOSPHATASE 65 U/L (45-117); BILIRUBIN,TOTAL 0.6 mg/dL (0.2-1.0); TOTAL PROTEIN 5.6 g/dL (6.4-8.2)
[2018-09-01] MEDS: PANTOPROZOLE 40MG TABLET PO SCH (05:56)
[2018-09-01 07:30] VITALS: BP 125/77
[2018-09-01] MEDS: FLUCONAZOLE 100 MG TABLET PO SCH (08:55)
[2018-09-01] MEDS: POTASSIUM CHLORIDE 20 MEQ PACKET PO SCH ×2 (08:55→18:40)
[2018-09-01] MEDS: AMLODIPINE 5 MG TABLET PO SCH (08:55)
[2018-09-01] MEDS: LACTULOSE 10 GM/15 ML UDC PO SCH ×2 (08:55→21:00)
[2018-09-01] MEDS: DOCUSATE 100 MG CAPSULE PO SCH (08:55)
[2018-09-01] MEDS: ACYCLOVIR 200 MG CAPSULE PO SCH ×2 (08:59→21:00)
[2018-09-01] MEDS: ANORO ELLIPTA IH SCH (09:00)
[2018-09-01] MEDS: TBO-FILGRASTIM 480 MCG/0.8 ML SQ SCH (10:52)
[2018-09-01 13:28] VITALS: BP 115/68
[2018-09-01] MEDS: SODIUM CHLORIDE FLUSH 10ML SYR IVF SCH ×2 (14:24→21:00)
[2018-09-01 20:35] VITALS: BP 121/68
[2018-09-01] MEDS: LEVOFLOXACIN 500 MG TABLET PO SCH (21:00)
[2018-09-02] VITALS (8 sets, daily range): BP systolic 114–133; BP diastolic 68–77
[2018-09-02] MEDS: PANTOPROZOLE 40MG TABLET PO SCH (05:14)
[2018-09-02] MEDS: SODIUM CHLORIDE 0.9% 1,000 ML IV SCH ×2 (05:14→16:05)
[2018-09-02 05:51] LABS: MEAN CORPUSCULAR HGB CONC 34.1 g/dL (32.4-35.8); RED BLOOD COUNT 2.13 x10^6/uL (3.82-5.3); RED CELL DISTRIBUTION WIDTH 15.8 % (9.6-15.2)
[2018-09-02 05:53] LABS: MEAN PLATELET VOLUME 7.7 fL (7.4-10.4)
[2018-09-02 05:55] LABS: PLATELET COUNT 43 x10^3/uL (130-400)
[2018-09-02 06:16] LABS: MD YES
[2018-09-02 06:19] LABS: <PLATELET ESTIMATE> DECREASED; <PLT MORPHOLOGY> NORMAL PLT MORPH; ANISOCYTOSIS 1+; LYMPH#(MANUAL) 0.03 x10^3/uL (1-3.4); LYMPHS% (MANUAL) 3 % (22-44); SEG#(MANUAL) 0.87 x10^3/uL (1.8-6.8); SEGS% (MANUAL) 97 % (42-75)
[2018-09-02 06:20] LABS: OVALOCYTES 1+
[2018-09-02 06:21] LABS: TOXIC GRAN 1+
[2018-09-02] MEDS ORDERED: ACETAMINOPHEN 325 MG TABLET PO ONE (07:30)
[2018-09-02] MEDS ORDERED: DIPHENHYDRAMINE 25 MG CAPSULE PO ONE (07:30)
[2018-09-02] MEDS: DOCUSATE 100 MG CAPSULE PO SCH (07:49)
[2018-09-02] MEDS: POTASSIUM CHLORIDE 20 MEQ PACKET PO SCH ×2 (08:03→16:09)
[2018-09-02] MEDS: ACYCLOVIR 200 MG CAPSULE PO SCH ×2 (08:03→20:44)
[2018-09-02] MEDS: AMLODIPINE 5 MG TABLET PO SCH (08:04)
[2018-09-02] MEDS: FLUCONAZOLE 100 MG TABLET PO SCH (08:04)
[2018-09-02] MEDS: LACTULOSE 10 GM/15 ML UDC PO SCH ×2 (08:04→20:44)
[2018-09-02] MEDS: SODIUM CHLORIDE FLUSH 10ML SYR IVF SCH ×2 (08:05→20:44)
[2018-09-02] MEDS: ANORO ELLIPTA IH SCH (08:05)
[2018-09-02] MEDS: TBO-FILGRASTIM 480 MCG/0.8 ML SQ SCH (10:00)
[2018-09-02] MEDS: LEVOFLOXACIN 500 MG TABLET PO SCH (20:44)
[2018-09-02] MEDS: ONDANSETRON 2MG/ML, 2ML IVPush PRN (20:44)
[2018-09-02] MEDS: ALPRazolam 1MG TAB PO PRN (22:22)
[2018-09-03 05:04] VITALS: BP 111/74
[2018-09-03] MEDS: PANTOPROZOLE 40MG TABLET PO SCH (05:22)
[2018-09-03 05:44] LABS: MEAN CORPUSCULAR HEMOGLOBIN 31.8 pg (27.0-34.8); MEAN CORPUSCULAR HGB CONC 34.2 g/dL (32.4-35.8); MEAN CORPUSCULAR VOLUME 92.9 fL (80-100); MEAN PLATELET VOLUME 7.3 fL (7.4-10.4); RED BLOOD COUNT 2.49 x10^6/uL (3.82-5.3); RED CELL DISTRIBUTION WIDTH 15.2 % (9.6-15.2)
[2018-09-03 06:32] LABS: PLATELET COUNT 41 x10^3/uL (130-400)
[2018-09-03 06:33] LABS: MD YES
[2018-09-03 06:37] LABS: BANDS%(MANUAL) 11 % (0-7); LYMPH#(MANUAL) 0.08 x10^3/uL (1-3.4); LYMPHS% (MANUAL) 9 % (22-44); SEG#(MANUAL) 0.72 x10^3/uL (1.8-6.8); SEGS% (MANUAL) 80 % (42-75)
[2018-09-03 06:38] LABS: <PLATELET ESTIMATE> DECREASED; <PLT MORPHOLOGY> NORMAL PLT MORPH; ANISOCYTOSIS 1+; TOXIC GRAN 1+
[2018-09-03] MEDS: SODIUM CHLORIDE 0.9% 1,000 ML IV SCH (08:00)
[2018-09-03] MEDS: ANORO ELLIPTA IH SCH (09:00)
[2018-09-03] MEDS: DOCUSATE 100 MG CAPSULE PO SCH (09:00)
[2018-09-03] MEDS: SODIUM CHLORIDE FLUSH 10ML SYR IVF SCH ×2 (09:00→21:03)
[2018-09-03 09:10] VITALS: BP 124/71
[2018-09-03] MEDS: ACYCLOVIR 200 MG CAPSULE PO SCH ×2 (09:58→21:03)
[2018-09-03] MEDS: FLUCONAZOLE 100 MG TABLET PO SCH (09:58)
[2018-09-03] MEDS: POTASSIUM CHLORIDE 20 MEQ PACKET PO SCH ×2 (09:58→17:04)
[2018-09-03] MEDS: LACTULOSE 10 GM/15 ML UDC PO SCH ×2 (09:58→21:03)
[2018-09-03] MEDS: AMLODIPINE 5 MG TABLET PO SCH (09:58)
[2018-09-03] MEDS: TBO-FILGRASTIM 480 MCG/0.8 ML SQ SCH (09:59)
[2018-09-03 13:25] VITALS: BP 145/83
[2018-09-03 14:00] VITALS: BP 109/68
[2018-09-03] MEDS: ACETAMINOPHEN 325 MG TABLET PO PRN (18:33)
[2018-09-03 21:01] VITALS: BP 114/69
[2018-09-03] MEDS: LEVOFLOXACIN 500 MG TABLET PO SCH (21:02)
[2018-09-04 01:01] VITALS: BP 122/75
[2018-09-04] MEDS: SODIUM CHLORIDE 0.9% 1,000 ML IV SCH ×3 (01:01→23:48)
[2018-09-04] MEDS: PANTOPROZOLE 40MG TABLET PO SCH (06:02)
[2018-09-04 06:13] LABS: MEAN CORPUSCULAR HEMOGLOBIN 32.2 pg (27.0-34.8); MEAN CORPUSCULAR HGB CONC 34.3 g/dL (32.4-35.8); MEAN PLATELET VOLUME 7.7 fL (7.4-10.4); RED BLOOD COUNT 2.45 x10^6/uL (3.82-5.3); RED CELL DISTRIBUTION WIDTH 15.8 % (9.6-15.2)
[2018-09-04 06:14] LABS: PLATELET COUNT 39 x10^3/uL (130-400)
[2018-09-04 06:29] LABS: MD YES
[2018-09-04 06:35] LABS: BAND#(MANUAL) 0.15 x10^3/uL; BANDS%(MANUAL) 14 % (0-7); LYMPH#(MANUAL) 0.11 x10^3/uL (1-3.4); LYMPHS% (MANUAL) 10 % (22-44); MONOS#(MANUAL) 0.01 x10^3/uL (0.3-2.7); MONOS% (MANUAL) 1 % (2-9); SEG#(MANUAL) 0.83 x10^3/uL (1.8-6.8); SEGS% (MANUAL) 75 % (42-75)
[2018-09-04 06:36] LABS: ANISOCYTOSIS 1+
[2018-09-04 06:37] LABS: <PLATELET ESTIMATE> DECREASED; <PLT MORPHOLOGY> NORMAL PLT MORPH; TOXIC GRAN 2+
[2018-09-04 07:22] VITALS: BP 113/63
[2018-09-04] MEDS: ANORO ELLIPTA IH SCH (09:00)
[2018-09-04] MEDS: DOCUSATE 100 MG CAPSULE PO SCH (09:00)
[2018-09-04] MEDS: ACYCLOVIR 200 MG CAPSULE PO SCH ×2 (09:55→21:24)
[2018-09-04] MEDS: AMLODIPINE 5 MG TABLET PO SCH (09:55)
[2018-09-04] MEDS: FLUCONAZOLE 100 MG TABLET PO SCH (09:55)
[2018-09-04] MEDS: LACTULOSE 10 GM/15 ML UDC PO SCH ×2 (09:56→21:24)
[2018-09-04] MEDS: SODIUM CHLORIDE FLUSH 10ML SYR IVF SCH ×2 (09:56→21:25)
[2018-09-04] MEDS: POTASSIUM CHLORIDE 20 MEQ PACKET PO SCH ×2 (09:56→17:59)
[2018-09-04] MEDS: TBO-FILGRASTIM 480 MCG/0.8 ML SQ SCH (10:40)
[2018-09-04 13:19] VITALS: BP 111/70
[2018-09-04 19:20] VITALS: BP 122/74
[2018-09-04] MEDS: LEVOFLOXACIN 500 MG TABLET PO SCH (21:24)
[2018-09-04] MEDS: ALPRazolam 1MG TAB PO PRN (23:14)
[2018-09-05 03:01] VITALS: BP 118/77
[2018-09-05 05:36] LABS: MEAN CORPUSCULAR HEMOGLOBIN 32.3 pg (27.0-34.8); MEAN CORPUSCULAR HGB CONC 34.2 g/dL (32.4-35.8); MEAN CORPUSCULAR VOLUME 94.5 fL (80-100); RED BLOOD COUNT 2.46 x10^6/uL (3.82-5.3); RED CELL DISTRIBUTION WIDTH 15.9 % (9.6-15.2)
[2018-09-05 05:39] LABS: PLATELET COUNT 45 x10^3/uL (130-400)
[2018-09-05 06:08] LABS: MD YES
[2018-09-05] MEDS: PANTOPROZOLE 40MG TABLET PO SCH (06:15)
[2018-09-05 06:32] LABS: BAND#(MANUAL) 0.18 x10^3/uL; BANDS%(MANUAL) 12 % (0-7); LYMPH#(MANUAL) 0.06 x10^3/uL (1-3.4); LYMPHS% (MANUAL) 4 % (22-44); SEG#(MANUAL) 1.26 x10^3/uL (1.8-6.8); SEGS% (MANUAL) 84 % (42-75)
[2018-09-05 06:34] LABS: <PLATELET ESTIMATE> DECREASED; <PLT MORPHOLOGY> NORMAL PLT MORPH; ANISOCYTOSIS 1+
[2018-09-05 07:25] VITALS: BP 129/74
[2018-09-05] MEDS: LACTULOSE 10 GM/15 ML UDC PO SCH ×2 (08:49→20:41)
[2018-09-05] MEDS: POTASSIUM CHLORIDE 20 MEQ PACKET PO SCH ×2 (08:49→16:59)
[2018-09-05] MEDS: ACYCLOVIR 200 MG CAPSULE PO SCH ×2 (08:50→20:41)
[2018-09-05] MEDS: SODIUM CHLORIDE FLUSH 10ML SYR IVF SCH ×2 (08:50→20:41)
[2018-09-05] MEDS: ANORO ELLIPTA IH SCH (08:50)
[2018-09-05] MEDS: AMLODIPINE 5 MG TABLET PO SCH (08:51)
[2018-09-05] MEDS: FLUCONAZOLE 100 MG TABLET PO SCH (08:51)
[2018-09-05] MEDS: DOCUSATE 100 MG CAPSULE PO SCH (08:51)
[2018-09-05 14:00] VITALS: BP 118/68
[2018-09-05] MEDS: SODIUM CHLORIDE 0.9% 1,000 ML IV SCH (17:01)
[2018-09-05 19:31] VITALS: BP 127/67
[2018-09-05] MEDS: LEVOFLOXACIN 500 MG TABLET PO SCH (20:41)
[2018-09-06] MEDS: ALPRazolam 1MG TAB PO PRN (01:11)
[2018-09-06] MEDS: SODIUM CHLORIDE 0.9% 1,000 ML IV SCH ×2 (01:13→17:39)
[2018-09-06 01:26] VITALS: BP 146/81
[2018-09-06] MEDS: PANTOPROZOLE 40MG TABLET PO SCH (05:31)
[2018-09-06 06:14] LABS: MD YES; MEAN CORPUSCULAR HEMOGLOBIN 31.7 pg (27.0-34.8); MEAN CORPUSCULAR HGB CONC 33.8 g/dL (32.4-35.8); MEAN CORPUSCULAR VOLUME 93.7 fL (80-100); MEAN PLATELET VOLUME 7.3 fL (7.4-10.4); RED BLOOD COUNT 2.48 x10^6/uL (3.82-5.3); RED CELL DISTRIBUTION WIDTH 15.3 % (9.6-15.2)
[2018-09-06 06:15] LABS: PLATELET COUNT 49 x10^3/uL (130-400)
[2018-09-06 06:18] LABS: ANISOCYTOSIS 1+; BAND#(MANUAL) 0.05 x10^3/uL; BANDS%(MANUAL) 4 % (0-7); LYMPH#(MANUAL) 0.08 x10^3/uL (1-3.4); LYMPHS% (MANUAL) 7 % (22-44); MONOS#(MANUAL) 0.02 x10^3/uL (0.3-2.7); MONOS% (MANUAL) 2 % (2-9); SEG#(MANUAL) 1.04 x10^3/uL (1.8-6.8); SEGS% (MANUAL) 87 % (42-75)
[2018-09-06 06:19] LABS: <PLATELET ESTIMATE> DECREASED; <PLT MORPHOLOGY> NORMAL PLT MORPH
[2018-09-06 06:20] LABS: TOXIC GRAN 1+
[2018-09-06 07:30] VITALS: BP 98/72
[2018-09-06 08:33] LABS: ALANINE AMINOTRANSFERASE 22 U/L (12-78); ALBUMIN 2.8 g/dL (3.4-5.0); ANION GAP 6 mmol/L (5-15); CALCIUM 8.3 mg/dL (8.5-10.1); CHLORIDE 110 mmol/L (98-107); CREATININE 0.46 mg/dL (0.55-1.02)
[2018-09-06 08:36] LABS: ALKALINE PHOSPHATASE 68 U/L (45-117); BILIRUBIN,TOTAL 0.5 mg/dL (0.2-1.0); TOTAL PROTEIN 5.5 g/dL (6.4-8.2)
[2018-09-06] MEDS: ANORO ELLIPTA IH SCH (09:00)
[2018-09-06] MEDS: DOCUSATE 100 MG CAPSULE PO SCH (09:00)
[2018-09-06] MEDS: LEVOFLOXACIN 500 MG TABLET PO SCH ×2 (11:07→20:26)
[2018-09-06] MEDS: FLUCONAZOLE 100 MG TABLET PO SCH (11:07)
[2018-09-06] MEDS: POTASSIUM CHLORIDE 20 MEQ PACKET PO SCH ×2 (11:07→17:39)
[2018-09-06] MEDS: ACYCLOVIR 200 MG CAPSULE PO SCH ×2 (11:07→20:26)
[2018-09-06] MEDS: AMLODIPINE 5 MG TABLET PO SCH (11:08)
[2018-09-06] MEDS: LACTULOSE 10 GM/15 ML UDC PO SCH ×2 (11:08→20:26)
[2018-09-06] MEDS: SODIUM CHLORIDE FLUSH 10ML SYR IVF SCH ×2 (11:11→20:26)
[2018-09-06 13:28] VITALS: BP 131/83
[2018-09-06 20:01] VITALS: BP 112/66
[2018-09-07] MEDS: SODIUM CHLORIDE 0.9% 1,000 ML IV SCH ×2 (02:23→15:55)
[2018-09-07 02:37] VITALS: BP 123/75
[2018-09-07] MEDS: PANTOPROZOLE 40MG TABLET PO SCH (05:01)
[2018-09-07 05:33] LABS: MEAN CORPUSCULAR HEMOGLOBIN 32.5 pg (27.0-34.8); MEAN CORPUSCULAR HGB CONC 33.9 g/dL (32.4-35.8); MEAN CORPUSCULAR VOLUME 95.8 fL (80-100); MEAN PLATELET VOLUME 7.5 fL (7.4-10.4); PLATELET COUNT 65 x10^3/uL (130-400); RED BLOOD COUNT 2.52 x10^6/uL (3.82-5.3); RED CELL DISTRIBUTION WIDTH 16.2 % (9.6-15.2)
[2018-09-07 05:52] LABS: MD YES
[2018-09-07 05:55] LABS: BAND#(MANUAL) 0.02 x10^3/uL; BANDS%(MANUAL) 2 % (0-7); EOS#(MANUAL) 0.02 x10^3/uL (0.0-0.4); EOS% (MANUAL) 2 % (1-7); LYMPH#(MANUAL) 0.14 x10^3/uL (1-3.4); LYMPHS% (MANUAL) 14 % (22-44); SEG#(MANUAL) 0.82 x10^3/uL (1.8-6.8); SEGS% (MANUAL) 82 % (42-75)
[2018-09-07 05:56] LABS: <PLATELET ESTIMATE> DECREASED; <PLT MORPHOLOGY> NORMAL PLT MORPH; ANISOCYTOSIS 1+
[2018-09-07 05:57] LABS: POLYCHROMASIA 1+
[2018-09-07 05:58] LABS: TOXIC GRAN 1+
[2018-09-07 06:45] VITALS: BP 150/73
[2018-09-07] MEDS: ANORO ELLIPTA IH SCH (07:45)
[2018-09-07] MEDS: AMLODIPINE 5 MG TABLET PO SCH (07:46)
[2018-09-07] MEDS: SODIUM CHLORIDE FLUSH 10ML SYR IVF SCH ×2 (07:46→20:35)
[2018-09-07] MEDS: DOCUSATE 100 MG CAPSULE PO SCH (07:46)
[2018-09-07] MEDS: POTASSIUM CHLORIDE 20 MEQ PACKET PO SCH ×2 (07:46→15:55)
[2018-09-07] MEDS: LACTULOSE 10 GM/15 ML UDC PO SCH ×2 (07:46→20:35)
[2018-09-07] MEDS: FLUCONAZOLE 100 MG TABLET PO SCH (07:46)
[2018-09-07] MEDS: ACYCLOVIR 200 MG CAPSULE PO SCH ×2 (07:46→20:35)
[2018-09-07 12:54] VITALS: BP 136/80
[2018-09-07 19:27] VITALS: BP 125/68
[2018-09-07] MEDS: ALPRazolam 1MG TAB PO PRN (22:39)
[2018-09-08 03:22] VITALS: BP 126/77
[2018-09-08] MEDS: SODIUM CHLORIDE 0.9% 1,000 ML IV SCH ×2 (05:11→19:18)
[2018-09-08 05:46] LABS: ALBUMIN 2.6 g/dL (3.4-5.0); ANION GAP 8 mmol/L (5-15); CALCIUM 7.6 mg/dL (8.5-10.1); CHLORIDE 114 mmol/L (98-107)
[2018-09-08 05:50] LABS: ALANINE AMINOTRANSFERASE 24 U/L (12-78); ALKALINE PHOSPHATASE 64 U/L (45-117); BILIRUBIN,TOTAL 0.5 mg/dL (0.2-1.0); CREATININE 0.38 mg/dL (0.55-1.02); TOTAL PROTEIN 5.2 g/dL (6.4-8.2)
[2018-09-08] MEDS: PANTOPROZOLE 40MG TABLET PO SCH (06:00)
[2018-09-08 06:37] LABS: MEAN CORPUSCULAR HEMOGLOBIN 32.4 pg (27.0-34.8); MEAN CORPUSCULAR HGB CONC 33.7 g/dL (32.4-35.8); RED BLOOD COUNT 2.45 x10^6/uL (3.82-5.3); RED CELL DISTRIBUTION WIDTH 16.6 % (9.6-15.2)
[2018-09-08 06:45] LABS: MEAN PLATELET VOLUME 7.6 fL (7.4-10.4); PLATELET COUNT 76 x10^3/uL (130-400)
[2018-09-08 06:46] LABS: MD YES
[2018-09-08 06:50] VITALS: BP 134/83
[2018-09-08 07:01] LABS: ANISOCYTOSIS 1+; BAND#(MANUAL) 0.02 x10^3/uL; BANDS%(MANUAL) 3 % (0-7); EOS#(MANUAL) 0.01 x10^3/uL (0.0-0.4); EOS% (MANUAL) 2 % (1-7); LYMPHS% (MANUAL) 17 % (22-44); METAMYELOCYTES# (MANUAL) 0.01 x10^3/uL (0-0); METAMYELOCYTES% (MANUAL) 1 % (0-1); MONOS#(MANUAL) 0.01 x10^3/uL (0.3-2.7); MONOS% (MANUAL) 1 % (2-9); NRBC % (MANUAL) 1 % (0-1); SEG#(MANUAL) 0.46 x10^3/uL (1.8-6.8); SEGS% (MANUAL) 76 % (42-75)
[2018-09-08 07:02] LABS: <PLATELET ESTIMATE> DECREASED; <PLT MORPHOLOGY> NORMAL PLT MORPH; POLYCHROMASIA 1+
[2018-09-08] MEDS: POTASSIUM CHLORIDE 20 MEQ PACKET PO SCH ×2 (08:00→17:42)
[2018-09-08] MEDS: AMLODIPINE 5 MG TABLET PO SCH (09:00)
[2018-09-08] MEDS: DOCUSATE 100 MG CAPSULE PO SCH (09:00)
[2018-09-08] MEDS: ANORO ELLIPTA IH SCH (09:00)
[2018-09-08] MEDS: SODIUM CHLORIDE FLUSH 10ML SYR IVF SCH ×2 (09:00→21:00)
[2018-09-08] MEDS: LACTULOSE 10 GM/15 ML UDC PO SCH ×2 (09:00→20:59)
[2018-09-08] MEDS: FLUCONAZOLE 100 MG TABLET PO SCH (09:00)
[2018-09-08] MEDS: ACYCLOVIR 200 MG CAPSULE PO SCH ×2 (09:00→21:00)
[2018-09-08] MEDS ORDERED: LIDOCAINE-MPF 1%, 5ML ONE ×2 (09:19→09:20)
[2018-09-08] MEDS ORDERED: FENTANYL PF 100 MCG/2ML ONE ×2 (09:22)
[2018-09-08] MEDS ORDERED: MIDAZOLAM 1 MG/ML, 5ML ONE ×2 (09:22→09:23)
[2018-09-08] MEDS ORDERED: FLUMAZENIL 0.1 MG/1 ML, 5ML ONE (09:23)
[2018-09-08] MEDS ORDERED: NALOXONE 1 MG/ML, 2ML ONE (09:23)
[2018-09-08] MEDS ORDERED: POTASSIUM CHLORIDE 20 MEQ TAB.ER.PRT PO ONE (09:30)
[2018-09-08 12:13] VITALS: BP 126/73
[2018-09-08 19:05] VITALS: BP 105/68
[2018-09-08] MEDS ORDERED: LEVOFLOXACIN 750 MG TABLET PO SCH (21:00)
[2018-09-09 02:25] VITALS: BP 124/78
[2018-09-09] MEDS: PANTOPROZOLE 40MG TABLET PO SCH (05:34)
[2018-09-09 06:00] LABS: MEAN CORPUSCULAR HEMOGLOBIN 31.8 pg (27.0-34.8); MEAN CORPUSCULAR HGB CONC 33.1 g/dL (32.4-35.8); MEAN CORPUSCULAR VOLUME 95.8 fL (80-100); MEAN PLATELET VOLUME 7.2 fL (7.4-10.4); PLATELET COUNT 83 x10^3/uL (130-400); RED BLOOD COUNT 2.47 x10^6/uL (3.82-5.3); RED CELL DISTRIBUTION WIDTH 16.3 % (9.6-15.2)
[2018-09-09 06:28] LABS: ANION GAP 7 mmol/L (5-15); CALCIUM 8.1 mg/dL (8.5-10.1); CHLORIDE 112 mmol/L (98-107); CREATININE 0.45 mg/dL (0.55-1.02)
[2018-09-09 06:57] VITALS: BP 133/82
[2018-09-09 07:26] LABS: MD YES
[2018-09-09 07:34] LABS: BAND#(MANUAL) 0.05 x10^3/uL; BANDS%(MANUAL) 6 % (0-7); EOS#(MANUAL) 0.02 x10^3/uL (0.0-0.4); EOS% (MANUAL) 3 % (1-7); LYMPHS% (MANUAL) 12 % (22-44); METAMYELOCYTES# (MANUAL) 0.01 x10^3/uL (0-0); METAMYELOCYTES% (MANUAL) 1 % (0-1); MONOS#(MANUAL) 0.01 x10^3/uL (0.3-2.7); MONOS% (MANUAL) 1 % (2-9); MYELOCYTES# (MANUAL) 0.01 x10^3/uL (0-0); MYELOCYTES% (MANUAL) 1 % (0-0); SEG#(MANUAL) 0.61 x10^3/uL (1.8-6.8); SEGS% (MANUAL) 76 % (42-75)
[2018-09-09 07:35] LABS: ANISOCYTOSIS 1+; TOXIC GRAN 1+
[2018-09-09 07:36] LABS: OVALOCYTES 1+
[2018-09-09 07:37] LABS: <PLATELET ESTIMATE> DECREASED; <PLT MORPHOLOGY> NORMAL PLT MORPH
[2018-09-09] MEDS: DOCUSATE 100 MG CAPSULE PO SCH (09:00)
[2018-09-09] MEDS: ANORO ELLIPTA IH SCH (09:00)
[2018-09-09] MEDS: LACTULOSE 10 GM/15 ML UDC PO SCH ×2 (10:01→21:38)
[2018-09-09] MEDS: ACYCLOVIR 200 MG CAPSULE PO SCH ×2 (10:02→21:39)
[2018-09-09] MEDS: POTASSIUM CHLORIDE 20 MEQ PACKET PO SCH ×2 (10:02→17:40)
[2018-09-09] MEDS: AMLODIPINE 5 MG TABLET PO SCH (10:02)
[2018-09-09] MEDS: FLUCONAZOLE 100 MG TABLET PO SCH (10:02)
[2018-09-09] MEDS: SODIUM CHLORIDE FLUSH 10ML SYR IVF SCH ×2 (10:02→21:39)
[2018-09-09] MEDS: SODIUM CHLORIDE 0.9% 1,000 ML IV SCH (10:03)
[2018-09-09 12:54] VITALS: BP 140/83
[2018-09-09] MEDS: ONDANSETRON 2MG/ML, 2ML IVPush PRN (14:50)
[2018-09-09 21:10] VITALS: BP 115/69
[2018-09-10] MEDS: SODIUM CHLORIDE 0.9% 1,000 ML IV SCH ×2 (01:46→11:51)
[2018-09-10 01:51] VITALS: BP 116/75
[2018-09-10] MEDS: PANTOPROZOLE 40MG TABLET PO SCH (05:53)
[2018-09-10 07:22] LABS: MEAN CORPUSCULAR HEMOGLOBIN 32.7 pg (27.0-34.8); MEAN CORPUSCULAR HGB CONC 34.3 g/dL (32.4-35.8); MEAN CORPUSCULAR VOLUME 95.3 fL (80-100); MEAN PLATELET VOLUME 7.4 fL (7.4-10.4); PLATELET COUNT 97 x10^3/uL (130-400); RED BLOOD COUNT 2.35 x10^6/uL (3.82-5.3); RED CELL DISTRIBUTION WIDTH 17.4 % (9.6-15.2)
[2018-09-10 07:30] VITALS: BP 129/77
[2018-09-10 07:41] LABS: MD YES
[2018-09-10 07:45] LABS: <PLATELET ESTIMATE> DECREASED; <PLT MORPHOLOGY> NORMAL PLT MORPH; ANISOCYTOSIS 1+; BAND#(MANUAL) 0.01 x10^3/uL; BANDS%(MANUAL) 1 % (0-7); EOS#(MANUAL) 0.03 x10^3/uL (0.0-0.4); EOS% (MANUAL) 4 % (1-7); LYMPH#(MANUAL) 0.19 x10^3/uL (1-3.4); LYMPHS% (MANUAL) 27 % (22-44); OVALOCYTES 1+; POLYCHROMASIA 1+; SEG#(MANUAL) 0.48 x10^3/uL (1.8-6.8); SEGS% (MANUAL) 68 % (42-75)
[2018-09-10 07:52] LABS: ALANINE AMINOTRANSFERASE 24 U/L (12-78); ALBUMIN 2.9 g/dL (3.4-5.0); ANION GAP 8 mmol/L (5-15); CALCIUM 7.7 mg/dL (8.5-10.1); CHLORIDE 112 mmol/L (98-107); CREATININE 0.52 mg/dL (0.55-1.02)
[2018-09-10 07:54] LABS: ALKALINE PHOSPHATASE 73 U/L (45-117); BILIRUBIN,TOTAL 0.5 mg/dL (0.2-1.0); TOTAL PROTEIN 5.5 g/dL (6.4-8.2)
[2018-09-10] MEDS ORDERED: POTASSIUM CHLORIDE 20 MEQ TAB.ER.PRT PO SCH (08:00)
[2018-09-10] MEDS: ANORO ELLIPTA IH SCH (09:00)
[2018-09-10] MEDS: DOCUSATE 100 MG CAPSULE PO SCH (09:00)
[2018-09-10] MEDS ORDERED: LEVO500T47 PO (09:55)
[2018-09-10] MEDS ORDERED: PANT40TA5 PO (09:55)
[2018-09-10] MEDS ORDERED: ONDA4TAB13 SL (09:55)
[2018-09-10] MEDS ORDERED: FLUC100T PO (09:55)
[2018-09-10] MEDS ORDERED: POTA20TA6 PO (09:55)
[2018-09-10] MEDS ORDERED: LACT10SO5 PO (09:55)
[2018-09-10] MEDS: SODIUM CHLORIDE FLUSH 10ML SYR IVF SCH (10:31)
[2018-09-10] MEDS: LACTULOSE 10 GM/15 ML UDC PO SCH (10:31)
[2018-09-10] MEDS: ACYCLOVIR 200 MG CAPSULE PO SCH (10:32)
[2018-09-10] MEDS: AMLODIPINE 5 MG TABLET PO SCH (10:32)
[2018-09-10] MEDS: FLUCONAZOLE 100 MG TABLET PO SCH (10:32)
[2018-09-10] MEDS ORDERED: ACYC-113 PO (10:51)
[2018-09-10 13:55] VITALS: BP 118/65
[2018-10-28] MEDS ORDERED: ALLO300T PO (13:54)
[2018-11-05] MEDS ORDERED: FLUC200T4 PO (08:51)
[2018-11-05] MEDS ORDERED: LEVO500T47 PO (08:53)
[2018-11-05] MEDS ORDERED: VALA500T4 PO (08:53)
[2018-11-05] MEDS ORDERED: POTA20TA14 PO (08:54)
[2018-11-05] MEDS ORDERED: OMEP-110 PO (08:55)
[2018-11-05] MEDS ORDERED: LACT10SO28 PO (08:57)
[2018-11-19] MEDS ORDERED: ACID1TAB7 PO (14:02)
[2018-11-19] MEDS ORDERED: SENN8.6T12 PO (14:02)
== END 2018-09-10 15:49 | disposition home health service (06) | DRG 834 ==
LOC: ED 10:38 → INTOOBSV 12:47 → EDIP 12:47 → 5SO 14:09 → OBSVTOIN 07-30 14:18 → 3NW 07-30 17:23
PROVIDERS: ADMIT Internal Medicine; ATTEND Internal Medicine
PROC: 07DR3ZX Extraction of Iliac Bone Marrow, Percutaneous Approach, Diagnostic (ICD-10-PCS; 2018-07-30)
PROC: 02HV33Z Insertion of Infusion Device into Superior Vena Cava, Percutaneous Approach (ICD-10-PCS; 2018-08-07)
PROC: B5181ZA Fluoroscopy of Superior Vena Cava using Low Osmolar Contrast, Guidance (ICD-10-PCS; 2018-08-07)
PROC: B548ZZA Ultrasonography of Superior Vena Cava, Guidance (ICD-10-PCS; 2018-08-07)
PROC: 30233N1 Transfusion of Nonautologous Red Blood Cells into Peripheral Vein, Percutaneous Approach (ICD-10-PCS; 2018-08-11)
PROC: 30233R1 Transfusion of Nonautologous Platelets into Peripheral Vein, Percutaneous Approach (ICD-10-PCS; 2018-08-24)
PROC: 07DR3ZX Extraction of Iliac Bone Marrow, Percutaneous Approach, Diagnostic (ICD-10-PCS; principal; 2018-09-08)
DX: C91.00 Acute lymphoblastic leukemia not having achieved remission (principal); N17.0 Acute kidney failure with tubular necrosis; E44.1 Mild protein-calorie malnutrition; F13.20 Sedative, hypnotic or anxiolytic dependence, uncomplicated; I50.32 Chronic diastolic (congestive) heart failure; E87.2 Acidosis; R06.09 Other forms of dyspnea; T45.1X5A Adverse effect of antineoplastic and immunosuppressive drugs, initial encounter; E87.6 Hypokalemia; E83.42 Hypomagnesemia; I11.0 Hypertensive heart disease with heart failure; F41.9 Anxiety disorder, unspecified; K59.00 Constipation, unspecified; C50.919 Malignant neoplasm of unspecified site of unspecified female breast; D35.02 Benign neoplasm of left adrenal gland; D50.9 Iron deficiency anemia, unspecified; G47.33 Obstructive sleep apnea (adult) (pediatric); G90.9 Disorder of the autonomic nervous system, unspecified; H70.93 Unspecified mastoiditis, bilateral; K21.9 Gastro-esophageal reflux disease without esophagitis; R50.81 Fever presenting with conditions classified elsewhere; G89.29 Other chronic pain; R73.9 Hyperglycemia, unspecified; R74.0 Nonspecific elevation of levels of transaminase and lactic acid dehydrogenase [LDH]; D70.1 Agranulocytosis secondary to cancer chemotherapy; Z17.1 Estrogen receptor negative status [ER-]; Z79.899 Other long term (current) drug therapy; Z80.0 Family history of malignant neoplasm of digestive organs; Z87.891 Personal history of nicotine dependence; Z90.13 Acquired absence of bilateral breasts and nipples; Z87.440 Personal history of urinary (tract) infections
CPT/HCPCS: 36415; 36573; 38222; 70551; 71045; 71046; 71260; 71275; 72050; 74018; 74177; 74230; 76536; 77012; 78452; 80048; 80053; 80074; 81003; 82607; 82728; 82962; 83540; 83550; 83605; 83615; 83735; 83880; 84100; 84145; 84155; 84165; 84443; 84484; 84550; 85025; 85027; 85045; 85060; 85097; 85610; 85730; 86644; 86645; 86850; 86900; 86923; 87040; 87806; 88184; 88185; 88237; 88264; 88280; 88305; 88311; 88313; 88374; 93005; 93017; 93306; 99156; 99157; 99285; G0378; J1100; J1453; J1720; J2250; J2405; J2785; J3010; J3475; J9000; J9070; J9209; Q0164; Q9967; A9502; C1751; C9898; G0475; J1200; J1447; J2060; J2270; J2310; J3490; J7030; J7040; J7050; J9312; J9370; P9037; P9040; Q0163

== ENCOUNTER 2018-11-26 09:00 | Inpatient (IN) | payer MEDICARE ==
[~2018-11-26] VITALS: Ht 160 cm; Wt 70.0 kg
[~2018-11-26 09:00] MED LIST changes: +ACID1TAB7 PO; +ACYC-113 PO; +ALLO300T PO; +BENZ150C3 PO; +CYCL-259 PO; +DICL-249 PO; +FLUC100T PO; +FLUC200T4 PO; +LACT10SO24 PO; +LACT10SO28 PO; +LEVO500T47 PO; +MECL25TA4 PO; +ONDA4TAB13 SL; +PANT40TA5 PO; +POTA20TA14 PO; +POTA20TA6 PO; +SENN8.6T12 PO; +VALA500T4 PO
[2018-11-30 10:02] VITALS: BP 120/80
[2018-11-30 10:25] LABS: ALBUMIN 3.6 g/dL (3.4-5.0); ANION GAP 8 mmol/L (5-15); CALCIUM 8.5 mg/dL (8.5-10.1); CHLORIDE 107 mmol/L (98-107); MEAN CORPUSCULAR HGB CONC 33.2 g/dL (32.4-35.8); MEAN CORPUSCULAR VOLUME 105.4 fL (80-100); MEAN PLATELET VOLUME 7.8 fL (7.4-10.4); PLATELET COUNT 83 x10^3/uL (130-400); RED BLOOD COUNT 2.57 x10^6/uL (3.82-5.3)
[2018-11-30 10:30] LABS: ALANINE AMINOTRANSFERASE 62 U/L (12-78); ALKALINE PHOSPHATASE 66 U/L (45-117); BILIRUBIN,TOTAL 0.5 mg/dL (0.2-1.0); CREATININE 0.69 mg/dL (0.55-1.02)
[2018-11-30 10:50] LABS: MD YES
[2018-11-30 10:53] LABS: BAND#(MANUAL) 0.05 x10^3/uL; BANDS%(MANUAL) 1 % (0-7); LYMPH#(MANUAL) 0.91 x10^3/uL (1-3.4); LYMPHS% (MANUAL) 19 % (22-44); MONOS#(MANUAL) 0.67 x10^3/uL (0.3-2.7); MONOS% (MANUAL) 14 % (2-9); SEG#(MANUAL) 3.17 x10^3/uL (1.8-6.8); SEGS% (MANUAL) 66 % (42-75)
[2018-11-30 10:54] LABS: ANISOCYTOSIS 2+; MICROCYTOSIS 1+
[2018-11-30 10:55] LABS: OVALOCYTES 1+; POLYCHROMASIA 1+; TEAR DROPS 1+
[2018-11-30 10:56] LABS: <PLATELET ESTIMATE> DECREASED; <PLT MORPHOLOGY> NORMAL PLT MORPH
[2018-11-30] MEDS ORDERED: PROCHLORPERAZINE 5 MG/ML, 2ML IV PRN (11:00)
[2018-11-30] MEDS ORDERED: SODIUM BICARBONATE 8.4% 150 MEQ in DEXTROSE 5% 1,000 ML IV ONE (11:00)
[2018-11-30] MEDS ORDERED: PROCHLORPERAZINE 10MG TABLET PO PRN (11:00)
[2018-11-30 12:48] VITALS: BP 149/86
[2018-11-30] MEDS: ONDANSETRON 16 MG in SODIUM CHLORIDE 0.9% 50 ML IVPB SCH (13:29)
[2018-11-30] MEDS ORDERED: DIPHENHYDRAMINE 50 MG CAPSULE PO ONE (13:30)
[2018-11-30] MEDS ORDERED: ACETAMINOPHEN 325 MG TABLET PO ONE (13:30)
[2018-11-30] MEDS ORDERED: FAMOTIDINE 20 MG TABLET PO ONE (13:30)
[2018-11-30] MEDS ORDERED: RITUXIMAB IV ONE (14:00)
[2018-11-30] MEDS ORDERED: SODIUM CHLORIDE 0.9% IV ONE ×3 (14:00→22:00)
[2018-11-30] MEDS: methylPREDNISolone SOD SUCC 125 MG/2 ML IVPush SCH (15:00)
[2018-11-30] MEDS: LEVOFLOXACIN 500 MG TABLET PO SCH ×2 (15:34→15:50)
[2018-11-30] MEDS: FLUCONAZOLE 200 MG TABLET PO SCH ×2 (15:34→15:50)
[2018-11-30] MEDS: ALLOPURINOL 300 MG TABLET PO SCH ×2 (15:35→15:50)
[2018-11-30] MEDS: VALACYCLOVIR 500MG TABLET PO SCH (15:55)
[2018-11-30] MEDS: SODIUM BICARBONATE 8.4% 150 MEQ in DEXTROSE 5% 1,000 ML IV SCH ×2 (18:37→22:25)
[2018-11-30 18:51] VITALS: BP 133/70
[2018-11-30] MEDS ORDERED: METHOTREXATE IV ONE ×2 (20:00→22:00)
[2018-11-30] MEDS ORDERED: SENNOSIDES 8.6 MG TABLET ONE (20:45)
[2018-11-30] MEDS: SENNOSIDES 8.6 MG TABLET PO SCH (20:48)
[2018-12-01] MEDS: methylPREDNISolone SOD SUCC 125 MG/2 ML IVPush SCH ×2 (01:37→14:47)
[2018-12-01 02:17] VITALS: BP 147/76
[2018-12-01] MEDS: SODIUM BICARBONATE 8.4% 150 MEQ in DEXTROSE 5% 1,000 ML IV SCH ×2 (04:38→08:53)
[2018-12-01 05:06] LABS: CHLORIDE 106 mmol/L (98-107)
[2018-12-01 05:13] LABS: ALANINE AMINOTRANSFERASE 57 U/L (12-78); ALBUMIN 3.2 g/dL (3.4-5.0); ALKALINE PHOSPHATASE 72 U/L (45-117); BILIRUBIN,TOTAL 0.5 mg/dL (0.2-1.0); CREATININE 0.62 mg/dL (0.55-1.02); TOTAL PROTEIN 5.5 g/dL (6.4-8.2)
[2018-12-01 05:45] LABS: BASOPHILS % (AUTO) 0 % (0-1); EOSINOPHILS # (AUTO) 0.02 x10^3/uL (0-0.4); EOSINOPHILS % (AUTO) 1 % (1-7); LYMPHOCYTES # (AUTO) 0.37 x10^3/uL (1-3.4); LYMPHOCYTES % (AUTO) 13 % (22-44); MD SCAN; MEAN CORPUSCULAR HEMOGLOBIN 35.2 pg (27.0-34.8); MEAN CORPUSCULAR HGB CONC 33.4 g/dL (32.4-35.8); MEAN CORPUSCULAR VOLUME 105.4 fL (80-100); MEAN PLATELET VOLUME 7.7 fL (7.4-10.4); MONOCYTES # (AUTO) 0.06 x10^3/uL (0.2-0.8); MONOCYTES % (AUTO) 2 % (2-9); NEUTROPHILS # (AUTO) 2.32 x10^3/uL (1.8-6.8); NEUTROPHILS % (AUTO) 84 % (42-75); PLATELET COUNT 62 x10^3/uL (130-400); RED BLOOD COUNT 2.32 x10^6/uL (3.82-5.3); RED CELL DISTRIBUTION WIDTH 26.8 % (9.6-15.2)
[2018-12-01 05:51] LABS: ANION GAP 6 mmol/L (5-15)
[2018-12-01 06:22] VITALS: BP 147/82
[2018-12-01] MEDS: AMLODIPINE 5 MG TABLET PO SCH (08:52)
[2018-12-01] MEDS: SENNOSIDES 8.6 MG TABLET PO SCH (08:53)
[2018-12-01] MEDS: POTASSIUM CHLORIDE 20 MEQ TAB.ER.PRT PO SCH (08:53)
[2018-12-01] MEDS: ALPRazolam 1MG TAB PO PRN (10:53)
[2018-12-01] MEDS ORDERED: LIDOCAINE-MPF 1%, 5ML ONE (11:28)
[2018-12-01] MEDS ORDERED: METHOTREXATE/PF 2ML 12 MG in SODIUM CHLORIDE 0.9% 5.52 ML IT ONE (12:00)
[2018-12-01] MEDS ORDERED: POTASSIUM CHLORIDE 20 MEQ TAB.ER.PRT PO ONE (12:00)
[2018-12-01] MEDS ORDERED: OMNIPAQUE 180 MG/ML, 10ML VIAL ONE (13:19)
[2018-12-01 14:05] VITALS: BP 121/69
[2018-12-01] MEDS ORDERED: SODIUM BICARBONATE 8.4% 150 MEQ in DEXTROSE 5% 1,000 ML IV SCH (14:30)
[2018-12-01] MEDS: ONDANSETRON 16 MG in SODIUM CHLORIDE 0.9% 50 ML IVPB SCH (14:47)
[2018-12-01] MEDS: VALACYCLOVIR 500MG TABLET PO SCH (16:01)
[2018-12-01] MEDS: LACTOBACILLUS CHEW TABLET PO SCH ×2 (16:01→21:43)
[2018-12-01] MEDS: FAMOTIDINE 20 MG TABLET PO SCH (16:01)
[2018-12-01 19:04] VITALS: BP 141/70
[2018-12-01] MEDS ORDERED: predniSOLONE OPHTH. 1%,1ML OP SCH (21:00)
[2018-12-01] MEDS: SODIUM BICARBONATE 8.4% 100 MEQ in DEXTROSE 5% 1,000 ML IV SCH (22:41)
[2018-12-01] MEDS: predniSOLONE OPHTH SUSP 1%, 5ML OP SCH (22:42)
[2018-12-01] MEDS ORDERED: CYTARABINE IV SCH (23:00)
[2018-12-01] MEDS ORDERED: SODIUM CHLORIDE 0.9% IV SCH (23:00)
[2018-12-02 01:10] VITALS: BP 128/65
[2018-12-02] MEDS: methylPREDNISolone SOD SUCC 125 MG/2 ML IVPush SCH ×2 (01:33→13:43)
[2018-12-02 05:15] LABS: MEAN CORPUSCULAR HEMOGLOBIN 35.4 pg (27.0-34.8); MEAN CORPUSCULAR HGB CONC 33.4 g/dL (32.4-35.8); MEAN PLATELET VOLUME 7.9 fL (7.4-10.4); PLATELET COUNT 74 x10^3/uL (130-400); RED BLOOD COUNT 2.42 x10^6/uL (3.82-5.3); RED CELL DISTRIBUTION WIDTH 26.6 % (9.6-15.2)
[2018-12-02 05:25] LABS: CHLORIDE 106 mmol/L (98-107)
[2018-12-02 05:40] LABS: BASOPHILS % (AUTO) 0 % (0-1); EOSINOPHILS % (AUTO) 0 % (1-7); LYMPHOCYTES # (AUTO) 0.37 x10^3/uL (1-3.4); LYMPHOCYTES % (AUTO) 5 % (22-44); MD SCAN; MONOCYTES # (AUTO) 0.14 x10^3/uL (0.2-0.8); MONOCYTES % (AUTO) 2 % (2-9); NEUTROPHILS # (AUTO) 7.27 x10^3/uL (1.8-6.8); NEUTROPHILS % (AUTO) 93 % (42-75)
[2018-12-02 05:58] LABS: ALBUMIN 3.2 g/dL (3.4-5.0); ANION GAP 7 mmol/L (5-15)
[2018-12-02 06:01] LABS: ALANINE AMINOTRANSFERASE 76 U/L (12-78); ALKALINE PHOSPHATASE 66 U/L (45-117); BILIRUBIN,TOTAL 0.7 mg/dL (0.2-1.0); CREATININE 0.51 mg/dL (0.55-1.02); TOTAL PROTEIN 5.5 g/dL (6.4-8.2)
[2018-12-02] MEDS: SODIUM BICARBONATE 8.4% 100 MEQ in DEXTROSE 5% 1,000 ML IV SCH ×2 (06:23→16:28)
[2018-12-02 08:12] VITALS: BP 149/72
[2018-12-02] MEDS: LACTOBACILLUS CHEW TABLET PO SCH ×3 (08:28→20:17)
[2018-12-02] MEDS: SENNOSIDES 8.6 MG TABLET PO SCH (08:29)
[2018-12-02] MEDS: AMLODIPINE 5 MG TABLET PO SCH (08:29)
[2018-12-02] MEDS: FAMOTIDINE 20 MG TABLET PO SCH (08:29)
[2018-12-02] MEDS: POTASSIUM CHLORIDE 20 MEQ TAB.ER.PRT PO SCH (08:29)
[2018-12-02] MEDS: ALPRazolam 1MG TAB PO PRN (08:32)
[2018-12-02] MEDS ORDERED: LEUCOVORIN IV ONE (10:30)
[2018-12-02] MEDS ORDERED: SODIUM CHLORIDE 0.9% IV ONE (10:30)
[2018-12-02] MEDS: predniSOLONE OPHTH SUSP 1%, 5ML OP SCH ×3 (10:53→20:17)
[2018-12-02] MEDS: LEVOFLOXACIN 500 MG TABLET PO SCH (10:53)
[2018-12-02] MEDS: ALLOPURINOL 300 MG TABLET PO SCH (10:53)
[2018-12-02] MEDS: FLUCONAZOLE 200 MG TABLET PO SCH (10:53)
[2018-12-02] MEDS: SODIUM CHLORIDE 0.9% IV SCH ×2 (11:50→17:54)
[2018-12-02] MEDS: CYTARABINE IV SCH (11:50)
[2018-12-02 13:10] VITALS: BP 130/66
[2018-12-02] MEDS: ONDANSETRON 16 MG in SODIUM CHLORIDE 0.9% 50 ML IVPB SCH (13:43)
[2018-12-02] MEDS: VALACYCLOVIR 500MG TABLET PO SCH (16:28)
[2018-12-02] MEDS: LEUCOVORIN IV SCH (17:54)
[2018-12-02 19:31] VITALS: BP 136/71
[2018-12-03] MEDS: methylPREDNISolone SOD SUCC 125 MG/2 ML IVPush SCH (00:02)
[2018-12-03] MEDS: LEUCOVORIN IV SCH ×3 (00:03→12:29)
[2018-12-03] MEDS: SODIUM CHLORIDE 0.9% IV SCH ×5 (00:03→12:34)
[2018-12-03] MEDS: CYTARABINE IV SCH ×2 (00:03→12:34)
[2018-12-03 00:55] VITALS: BP 147/72
[2018-12-03] MEDS: SODIUM BICARBONATE 8.4% 100 MEQ in DEXTROSE 5% 1,000 ML IV SCH (02:00)
[2018-12-03 03:45] LABS: ALANINE AMINOTRANSFERASE 78 U/L (12-78); ALBUMIN 3.1 g/dL (3.4-5.0); ANION GAP 6 mmol/L (5-15); CALCIUM 7.9 mg/dL (8.5-10.1); CHLORIDE 108 mmol/L (98-107); CREATININE 0.52 mg/dL (0.55-1.02)
[2018-12-03 03:48] LABS: ALKALINE PHOSPHATASE 67 U/L (45-117); BILIRUBIN,TOTAL 0.6 mg/dL (0.2-1.0); TOTAL PROTEIN 5.3 g/dL (6.4-8.2)
[2018-12-03 03:54] LABS: MEAN CORPUSCULAR HEMOGLOBIN 34.6 pg (27.0-34.8); MEAN CORPUSCULAR VOLUME 104.7 fL (80-100); MEAN PLATELET VOLUME 7.5 fL (7.4-10.4); PLATELET COUNT 61 x10^3/uL (130-400); RED BLOOD COUNT 2.27 x10^6/uL (3.82-5.3); RED CELL DISTRIBUTION WIDTH 25.5 % (9.6-15.2)
[2018-12-03 03:55] LABS: BASOPHILS % (AUTO) 0 % (0-1); EOSINOPHILS % (AUTO) 0 % (1-7); LYMPHOCYTES # (AUTO) 0.09 x10^3/uL (1-3.4); LYMPHOCYTES % (AUTO) 2 % (22-44); MD SCAN; MONOCYTES # (AUTO) 0.02 x10^3/uL (0.2-0.8); MONOCYTES % (AUTO) 0 % (2-9); NEUTROPHILS # (AUTO) 6.14 x10^3/uL (1.8-6.8); NEUTROPHILS % (AUTO) 98 % (42-75)
[2018-12-03] MEDS: predniSOLONE OPHTH SUSP 1%, 5ML OP SCH ×4 (05:59→20:44)
[2018-12-03 07:51] VITALS: BP 149/74
[2018-12-03] MEDS ORDERED: CHOLECALCIFEROL 1,000 UNIT TABLET PO SCH (09:00)
[2018-12-03] MEDS: FAMOTIDINE 20 MG TABLET PO SCH (10:24)
[2018-12-03] MEDS: SENNOSIDES 8.6 MG TABLET PO SCH (10:24)
[2018-12-03] MEDS: AMLODIPINE 5 MG TABLET PO SCH (10:24)
[2018-12-03] MEDS: POTASSIUM CHLORIDE 20 MEQ TAB.ER.PRT PO SCH (10:24)
[2018-12-03] MEDS: ALLOPURINOL 300 MG TABLET PO SCH (10:24)
[2018-12-03] MEDS: LACTOBACILLUS CHEW TABLET PO SCH ×3 (10:24→20:44)
[2018-12-03] MEDS: LEVOFLOXACIN 500 MG TABLET PO SCH (11:17)
[2018-12-03] MEDS: FLUCONAZOLE 200 MG TABLET PO SCH (11:17)
[2018-12-03] MEDS ORDERED: methylPREDNISolone SOD SUCC 125 MG/2 ML IVPush ONE (12:00)
[2018-12-03] MEDS ORDERED: ERGOCALCIFEROL 50,000 UNIT CAPSULE PO SCH (13:00)
[2018-12-03] MEDS: ALPRazolam 1MG TAB PO PRN (13:08)
[2018-12-03 13:26] VITALS: BP 137/73
[2018-12-03] MEDS ORDERED: ONDANSETRON 16 MG in SODIUM CHLORIDE 0.9% 50 ML IVPB ONE (13:30)
[2018-12-03] MEDS: MAGNESIUM HYDROXIDE 8%, 30ML UDC PO PRN (16:24)
[2018-12-03] MEDS: VALACYCLOVIR 500MG TABLET PO SCH (16:25)
[2018-12-03 19:46] VITALS: BP 152/76
[2018-12-04 01:29] VITALS: BP 147/80
[2018-12-04 04:25] LABS: MEAN CORPUSCULAR HEMOGLOBIN 35.1 pg (27.0-34.8); MEAN CORPUSCULAR HGB CONC 33.5 g/dL (32.4-35.8); MEAN CORPUSCULAR VOLUME 104.8 fL (80-100); MEAN PLATELET VOLUME 7.1 fL (7.4-10.4); PLATELET COUNT 62 x10^3/uL (130-400); RED BLOOD COUNT 2.08 x10^6/uL (3.82-5.3); RED CELL DISTRIBUTION WIDTH 24.5 % (9.6-15.2)
[2018-12-04 04:35] LABS: ALANINE AMINOTRANSFERASE 60 U/L (12-78); ALBUMIN 2.9 g/dL (3.4-5.0); ANION GAP 8 mmol/L (5-15); CALCIUM 7.5 mg/dL (8.5-10.1); CHLORIDE 108 mmol/L (98-107); CREATININE 0.58 mg/dL (0.55-1.02)
[2018-12-04 04:38] LABS: ALKALINE PHOSPHATASE 53 U/L (45-117); BILIRUBIN,TOTAL 0.5 mg/dL (0.2-1.0); TOTAL PROTEIN 4.8 g/dL (6.4-8.2)
[2018-12-04 04:42] LABS: BASOPHILS % (AUTO) 0 % (0-1); EOSINOPHILS % (AUTO) 0 % (1-7); LYMPHOCYTES # (AUTO) 0.07 x10^3/uL (1-3.4); LYMPHOCYTES % (AUTO) 1 % (22-44); MD MORPH REVIEW ONLY; MONOCYTES # (AUTO) 0.04 x10^3/uL (0.2-0.8); MONOCYTES % (AUTO) 1 % (2-9); NEUTROPHILS # (AUTO) 5.43 x10^3/uL (1.8-6.8); NEUTROPHILS % (AUTO) 98 % (42-75)
[2018-12-04 04:43] LABS: <PLATELET ESTIMATE> DECREASED; <PLT MORPHOLOGY> NORMAL PLT MORPH; ANISOCYTOSIS 1+; OVALOCYTES 2+; TEAR DROPS 1+
[2018-12-04] MEDS: predniSOLONE OPHTH SUSP 1%, 5ML OP SCH ×4 (05:50→21:25)
[2018-12-04 07:19] VITALS: BP 155/76
[2018-12-04] MEDS: FAMOTIDINE 20 MG TABLET PO SCH (09:14)
[2018-12-04] MEDS: LACTOBACILLUS CHEW TABLET PO SCH ×3 (09:15→21:25)
[2018-12-04] MEDS: AMLODIPINE 5 MG TABLET PO SCH (09:15)
[2018-12-04] MEDS: SENNOSIDES 8.6 MG TABLET PO SCH (09:15)
[2018-12-04] MEDS: POTASSIUM CHLORIDE 20 MEQ TAB.ER.PRT PO SCH (09:15)
[2018-12-04] MEDS: ALLOPURINOL 300 MG TABLET PO SCH (10:43)
[2018-12-04] MEDS: FLUCONAZOLE 200 MG TABLET PO SCH (10:43)
[2018-12-04] MEDS: LEVOFLOXACIN 500 MG TABLET PO SCH (10:44)
[2018-12-04] MEDS: ACETAMINOPHEN 325 MG TABLET PO PRN (10:44)
[2018-12-04] MEDS: CALCIUM CARBONATE 500 MG TAB.CHEW PO SCH (10:46)
[2018-12-04 13:09] VITALS: BP 134/40
[2018-12-04] MEDS: TBO-FILGRASTIM 480 MCG/0.8 ML SQ SCH (14:05)
[2018-12-04] MEDS: VALACYCLOVIR 500MG TABLET PO SCH (16:11)
[2018-12-04] MEDS: ONDANSETRON 2MG/ML, 2ML IVPush PRN (19:20)
[2018-12-04 21:30] VITALS: BP 134/77
[2018-12-04] MEDS: ALPRazolam 1MG TAB PO PRN (21:34)
[2018-12-05 05:04] VITALS: BP 129/74
[2018-12-05] MEDS: predniSOLONE OPHTH SUSP 1%, 5ML OP SCH ×3 (05:07→21:47)
[2018-12-05 05:27] LABS: MEAN CORPUSCULAR HEMOGLOBIN 35.1 pg (27.0-34.8); MEAN CORPUSCULAR HGB CONC 33.4 g/dL (32.4-35.8); MEAN CORPUSCULAR VOLUME 105.2 fL (80-100); MEAN PLATELET VOLUME 6.9 fL (7.4-10.4); RED BLOOD COUNT 2.12 x10^6/uL (3.82-5.3); RED CELL DISTRIBUTION WIDTH 25.1 % (9.6-15.2)
[2018-12-05 05:32] LABS: ALBUMIN 2.8 g/dL (3.4-5.0); ANION GAP 5 mmol/L (5-15); CHLORIDE 111 mmol/L (98-107)
[2018-12-05 05:35] LABS: ALANINE AMINOTRANSFERASE 79 U/L (12-78); ALKALINE PHOSPHATASE 55 U/L (45-117); BILIRUBIN,TOTAL 0.8 mg/dL (0.2-1.0); CREATININE 0.66 mg/dL (0.55-1.02); TOTAL PROTEIN 4.8 g/dL (6.4-8.2)
[2018-12-05 05:39] LABS: PLATELET COUNT 45 x10^3/uL (130-400)
[2018-12-05 05:57] LABS: MD YES
[2018-12-05 05:59] LABS: ANISOCYTOSIS 1+; BAND#(MANUAL) 0.59 x10^3/uL; BANDS%(MANUAL) 4 % (0-7); EOS#(MANUAL) 0.15 x10^3/uL (0.0-0.4); EOS% (MANUAL) 1 % (1-7); SEG#(MANUAL) 13.97 x10^3/uL (1.8-6.8); SEGS% (MANUAL) 95 % (42-75)
[2018-12-05 06:00] LABS: <PLATELET ESTIMATE> DECREASED; <PLT MORPHOLOGY> NORMAL PLT MORPH; OVALOCYTES 2+; TEAR DROPS 1+
[2018-12-05 08:45] VITALS: BP 125/71
[2018-12-05] MEDS: ONDANSETRON 2MG/ML, 2ML IVPush PRN (09:03)
[2018-12-05] MEDS: FAMOTIDINE 20 MG TABLET PO SCH (09:03)
[2018-12-05] MEDS: CALCIUM CARBONATE 500 MG TAB.CHEW PO SCH (09:03)
[2018-12-05] MEDS: AMLODIPINE 5 MG TABLET PO SCH (09:03)
[2018-12-05] MEDS: POTASSIUM CHLORIDE 20 MEQ TAB.ER.PRT PO SCH (09:04)
[2018-12-05] MEDS: SENNOSIDES 8.6 MG TABLET PO SCH (09:04)
[2018-12-05] MEDS: LACTOBACILLUS CHEW TABLET PO SCH ×3 (09:04→21:47)
[2018-12-05] MEDS: LEVOFLOXACIN 750 MG TABLET PO SCH (13:30)
[2018-12-05] MEDS: FLUCONAZOLE 200 MG TABLET PO SCH (13:30)
[2018-12-05] MEDS: ALLOPURINOL 300 MG TABLET PO SCH (13:30)
[2018-12-05] MEDS: TBO-FILGRASTIM 480 MCG/0.8 ML SQ SCH (13:30)
[2018-12-05] MEDS: ACETAMINOPHEN 325 MG TABLET PO PRN (13:45)
[2018-12-05] MEDS: VALACYCLOVIR 500MG TABLET PO SCH (17:16)
[2018-12-05 17:24] VITALS: BP 110/66
[2018-12-05 21:40] VITALS: BP 110/69
[2018-12-05] MEDS: ALPRazolam 1MG TAB PO PRN (21:47)
[2018-12-06] VITALS (10 sets, daily range): BP systolic 114–145; BP diastolic 67–75
[2018-12-06] MEDS: predniSOLONE OPHTH SUSP 1%, 5ML OP SCH ×4 (04:42→21:11)
[2018-12-06 05:30] LABS: CHLORIDE 108 mmol/L (98-107)
[2018-12-06 05:38] LABS: ALANINE AMINOTRANSFERASE 69 U/L (12-78); ALBUMIN 2.8 g/dL (3.4-5.0); ALKALINE PHOSPHATASE 61 U/L (45-117); ANION GAP 4 mmol/L (5-15); BILIRUBIN,TOTAL 0.9 mg/dL (0.2-1.0); CALCIUM 7.9 mg/dL (8.5-10.1); CREATININE 0.43 mg/dL (0.55-1.02); TOTAL PROTEIN 4.8 g/dL (6.4-8.2)
[2018-12-06 05:56] LABS: MEAN CORPUSCULAR HEMOGLOBIN 34.6 pg (27.0-34.8); MEAN CORPUSCULAR HGB CONC 32.9 g/dL (32.4-35.8); MEAN CORPUSCULAR VOLUME 105.1 fL (80-100); MEAN PLATELET VOLUME 8.6 fL (7.4-10.4); RED BLOOD COUNT 1.92 x10^6/uL (3.82-5.3); RED CELL DISTRIBUTION WIDTH 25.4 % (9.6-15.2)
[2018-12-06 06:06] LABS: PLATELET COUNT 24 x10^3/uL (130-400)
[2018-12-06 06:12] LABS: MD YES
[2018-12-06 06:13] LABS: EOS#(MANUAL) 0.06 x10^3/uL (0.0-0.4); EOS% (MANUAL) 1 % (1-7); SEG#(MANUAL) 5.54 x10^3/uL (1.8-6.8); SEGS% (MANUAL) 99 % (42-75)
[2018-12-06 06:14] LABS: TEAR DROPS 1+
[2018-12-06 06:15] LABS: <PLATELET ESTIMATE> DECREASED; <PLT MORPHOLOGY> NORMAL PLT MORPH; ANISOCYTOSIS 1+; OVALOCYTES 2+
[2018-12-06] MEDS: AMLODIPINE 5 MG TABLET PO SCH (10:29)
[2018-12-06] MEDS: CALCIUM CARBONATE 500 MG TAB.CHEW PO SCH (10:29)
[2018-12-06] MEDS: FAMOTIDINE 20 MG TABLET PO SCH (10:29)
[2018-12-06] MEDS: POTASSIUM CHLORIDE 20 MEQ TAB.ER.PRT PO SCH (10:29)
[2018-12-06] MEDS: LACTOBACILLUS CHEW TABLET PO SCH ×3 (10:29→21:11)
[2018-12-06] MEDS: SENNOSIDES 8.6 MG TABLET PO SCH (10:30)
[2018-12-06] MEDS: FLUCONAZOLE 200 MG TABLET PO SCH (10:37)
[2018-12-06] MEDS: ALLOPURINOL 300 MG TABLET PO SCH (10:37)
[2018-12-06] MEDS: TBO-FILGRASTIM 480 MCG/0.8 ML SQ SCH (13:38)
[2018-12-06] MEDS: VALACYCLOVIR 500MG TABLET PO SCH (16:01)
[2018-12-07] VITALS (10 sets, daily range): BP systolic 113–155; BP diastolic 65–86
[2018-12-07] MEDS: ALPRazolam 1MG TAB PO PRN ×2 (03:54→23:00)
[2018-12-07 03:56] LABS: ALANINE AMINOTRANSFERASE 59 U/L (12-78); ALBUMIN 2.9 g/dL (3.4-5.0); ANION GAP 5 mmol/L (5-15); CALCIUM 7.9 mg/dL (8.5-10.1); CHLORIDE 108 mmol/L (98-107); CREATININE 0.42 mg/dL (0.55-1.02)
[2018-12-07 03:59] LABS: ALKALINE PHOSPHATASE 65 U/L (45-117); BILIRUBIN,TOTAL 1.3 mg/dL (0.2-1.0)
[2018-12-07 05:46] LABS: MD YES; MEAN CORPUSCULAR HEMOGLOBIN 34.9 pg (27.0-34.8); MEAN CORPUSCULAR HGB CONC 34.4 g/dL (32.4-35.8); MEAN CORPUSCULAR VOLUME 101.3 fL (80-100); MEAN PLATELET VOLUME 8.4 fL (7.4-10.4); RED BLOOD COUNT 2.67 x10^6/uL (3.82-5.3)
[2018-12-07 05:48] LABS: PLATELET COUNT 14 x10^3/uL (130-400)
[2018-12-07 05:51] LABS: ANISOCYTOSIS 1+; EOS#(MANUAL) 0.03 x10^3/uL (0.0-0.4); EOS% (MANUAL) 1 % (1-7); LYMPH#(MANUAL) 0.17 x10^3/uL (1-3.4); LYMPHS% (MANUAL) 5 % (22-44); OVALOCYTES 2+; SEGS% (MANUAL) 94 % (42-75); TEAR DROPS 1+
[2018-12-07 05:52] LABS: <PLATELET ESTIMATE> DECREASED; <PLT MORPHOLOGY> NORMAL PLT MORPH
[2018-12-07] MEDS: predniSOLONE OPHTH SUSP 1%, 5ML OP SCH ×4 (06:45→23:00)
[2018-12-07] MEDS: SENNOSIDES 8.6 MG TABLET PO SCH (11:22)
[2018-12-07] MEDS: LACTOBACILLUS CHEW TABLET PO SCH ×3 (11:22→21:27)
[2018-12-07] MEDS: FAMOTIDINE 20 MG TABLET PO SCH (11:22)
[2018-12-07] MEDS: CALCIUM CARBONATE 500 MG TAB.CHEW PO SCH (11:22)
[2018-12-07] MEDS: AMLODIPINE 5 MG TABLET PO SCH (11:22)
[2018-12-07] MEDS: ALLOPURINOL 300 MG TABLET PO SCH (11:23)
[2018-12-07] MEDS: FLUCONAZOLE 200 MG TABLET PO SCH (11:23)
[2018-12-07] MEDS: POTASSIUM CHLORIDE 20 MEQ TAB.ER.PRT PO SCH (11:23)
[2018-12-07] MEDS: LEVOFLOXACIN 750 MG TABLET PO SCH (11:23)
[2018-12-07] MEDS: ONDANSETRON 2MG/ML, 2ML IVPush PRN (13:18)
[2018-12-07] MEDS: TBO-FILGRASTIM 480 MCG/0.8 ML SQ SCH (13:56)
[2018-12-07] MEDS ORDERED: ACETAMINOPHEN 325 MG TABLET PO ONE ×2 (15:30→20:00)
[2018-12-07] MEDS ORDERED: FAMOTIDINE 20 MG TABLET PO ONE ×2 (15:30→20:00)
[2018-12-07] MEDS ORDERED: DIPHENHYDRAMINE 50 MG CAPSULE PO ONE ×2 (15:30→20:00)
[2018-12-07] MEDS: MAGNESIUM HYDROXIDE 8%, 30ML UDC PO PRN (15:50)
[2018-12-07] MEDS: VALACYCLOVIR 500MG TABLET PO SCH (16:35)
[2018-12-07] MEDS ORDERED: LIDOCAINE-MPF 1%, 5ML ONE (16:53)
[2018-12-07] MEDS ORDERED: CYTARABINE IT ONE (17:00)
[2018-12-07] MEDS ORDERED: SODIUM CHLORIDE 0.9% IT ONE (17:00)
[2018-12-07] MEDS ORDERED: RITUXIMAB IV ONE (21:00)
[2018-12-07] MEDS ORDERED: SODIUM CHLORIDE 0.9% IV ONE (21:00)
[2018-12-08 01:47] VITALS: BP 104/63
[2018-12-08 06:24] LABS: MEAN CORPUSCULAR HEMOGLOBIN 34.5 pg (27.0-34.8); MEAN CORPUSCULAR HGB CONC 34.3 g/dL (32.4-35.8); MEAN CORPUSCULAR VOLUME 100.4 fL (80-100); MEAN PLATELET VOLUME 7.6 fL (7.4-10.4); RED BLOOD COUNT 2.43 x10^6/uL (3.82-5.3); RED CELL DISTRIBUTION WIDTH 22.1 % (9.6-15.2)
[2018-12-08 06:25] LABS: PLATELET COUNT 26 x10^3/uL (130-400)
[2018-12-08 06:30] LABS: ALBUMIN 2.8 g/dL (3.4-5.0); ANION GAP 5 mmol/L (5-15); CALCIUM 7.8 mg/dL (8.5-10.1); CHLORIDE 111 mmol/L (98-107)
[2018-12-08 06:34] LABS: ALANINE AMINOTRANSFERASE 45 U/L (12-78); ALKALINE PHOSPHATASE 63 U/L (45-117); BILIRUBIN,TOTAL 0.6 mg/dL (0.2-1.0); CREATININE 0.56 mg/dL (0.55-1.02)
[2018-12-08 06:52] LABS: MD YES
[2018-12-08 06:58] LABS: EOS#(MANUAL) 0.04 x10^3/uL (0.0-0.4); EOS% (MANUAL) 9 % (1-7); LYMPHS% (MANUAL) 26 % (22-44); SEG#(MANUAL) 0.26 x10^3/uL (1.8-6.8); SEGS% (MANUAL) 65 % (42-75)
[2018-12-08 07:00] LABS: ANISOCYTOSIS 1+
[2018-12-08 07:01] LABS: <PLATELET ESTIMATE> DECREASED; <PLT MORPHOLOGY> NORMAL PLT MORPH; OVALOCYTES 1+; TEAR DROPS 1+
[2018-12-08 08:38] VITALS: BP 128/73
[2018-12-08] MEDS: FLUCONAZOLE 200 MG TABLET PO SCH (10:32)
[2018-12-08] MEDS: SENNOSIDES 8.6 MG TABLET PO SCH (10:32)
[2018-12-08] MEDS: AMLODIPINE 5 MG TABLET PO SCH (10:32)
[2018-12-08] MEDS: MAGNESIUM HYDROXIDE 8%, 30ML UDC PO PRN (10:33)
[2018-12-08] MEDS: LACTOBACILLUS CHEW TABLET PO SCH (10:33)
[2018-12-08] MEDS: POTASSIUM CHLORIDE 20 MEQ TAB.ER.PRT PO SCH (10:33)
[2018-12-08] MEDS: FAMOTIDINE 20 MG TABLET PO SCH (10:33)
[2018-12-08] MEDS: ALLOPURINOL 300 MG TABLET PO SCH (10:33)
[2018-12-08] MEDS: CALCIUM CARBONATE 500 MG TAB.CHEW PO SCH (10:33)
[2018-12-08] MEDS: ACETAMINOPHEN 325 MG TABLET PO PRN (12:13)
[2018-12-08] MEDS: TBO-FILGRASTIM 480 MCG/0.8 ML SQ SCH (13:26)
[2018-12-08] MEDS: ONDANSETRON 2MG/ML, 2ML IVPush PRN (13:56)
[2018-12-08] MEDS: ALPRazolam 1MG TAB PO PRN (13:56)
== END 2018-12-08 15:40 | disposition home or self-care (01) | DRG 839 ==
LOC: 4NW 11-30 09:04
PROVIDERS: ADMIT Internal Medicine; ATTEND Internal Medicine
PROC: 009U3ZZ Drainage of Spinal Canal, Percutaneous Approach (ICD-10-PCS; principal; 2018-12-01)
PROC: B01B1ZZ Fluoroscopy of Spinal Cord using Low Osmolar Contrast (ICD-10-PCS; 2018-12-01)
PROC: 3E0330M Introduction of Antineoplastic, Monoclonal Antibody, into Peripheral Vein, Percutaneous Approach (ICD-10-PCS; 2018-12-03)
PROC: 30233N1 Transfusion of Nonautologous Red Blood Cells into Peripheral Vein, Percutaneous Approach (ICD-10-PCS; 2018-12-06)
PROC: 009U3ZZ Drainage of Spinal Canal, Percutaneous Approach (ICD-10-PCS; 2018-12-07)
PROC: B01B1ZZ Fluoroscopy of Spinal Cord using Low Osmolar Contrast (ICD-10-PCS; 2018-12-07)
PROC: 3E0R305 Introduction of Other Antineoplastic into Spinal Canal, Percutaneous Approach (ICD-10-PCS; 2018-12-07)
PROC: 30233R1 Transfusion of Nonautologous Platelets into Peripheral Vein, Percutaneous Approach (ICD-10-PCS; 2018-12-07)
DX: Z51.11 Encounter for antineoplastic chemotherapy (principal); C91.00 Acute lymphoblastic leukemia not having achieved remission; I10 Essential (primary) hypertension; G62.9 Polyneuropathy, unspecified; D69.59 Other secondary thrombocytopenia; K21.9 Gastro-esophageal reflux disease without esophagitis; T45.1X5A Adverse effect of antineoplastic and immunosuppressive drugs, initial encounter; G89.29 Other chronic pain; Z85.3 Personal history of malignant neoplasm of breast; Z79.899 Other long term (current) drug therapy; Z87.891 Personal history of nicotine dependence; Z80.0 Family history of malignant neoplasm of digestive organs; Z80.41 Family history of malignant neoplasm of ovary; Z90.13 Acquired absence of bilateral breasts and nipples; Y92.098 Other place in other non-institutional residence as the place of occurrence of the external cause
CPT/HCPCS: 36415; 77003; 80053; 80375; 81003; 85025; 85049; 86850; 86900; 86923; 88108; 88184; 88185; G0378; J2405; J7070; J9100; J9250; Q0164; Q9965; G0480; J0640; J1447; J2930; J7030; J7040; J7050; J9312; P9037; P9040